=== PATIENT | male | born 1950 | race Caucasian/White ===

== ENCOUNTER 2024-07-12 17:48 | Inpatient (IN) | payer MEDICARE, BC ==
[~2024-07-12] VITALS: Ht 185.4 cm; Wt 186.0 kg
--- NOTE | 2024-07-12 18:17 | ED.PDOC ---
History of Present Illness HPI Comments 73 y/o M is BIBA for c/o shortness of breath and productive cough for 1x week, today. Patient endorses on unprovoked onset of symptoms that have been progressively worsening for the past week. He comments on difficulty breathing worsening with exertion. Per EMS report, patient was found on scene with a SpO2 of 88%RA and was given 1x Albuterol breathing Tx en route. At time of assessment, patient still remain with breathing Tx still being administered. Patient denies any chest pain, hemoptysis, fever, chills, or other associated symptoms or modifiers at this time. 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 Past Medical History PAST MEDICAL HISTORY: High Lipids, HTN Past Medical History (Other): morbid obesity Surgical History: Denies all surgeries Family History Family History: Unknown Social History Smoker: Non-Smoker Alcohol: Denies ETOH Use Drugs: Denies Drug Use Lives In: Home Respiratory: reports: cough, shortness of breath All Other Systems: Reviewed and Negative (negative unless otherwise stated above or in HPI) Physical Exam General Appearance: No Apparent Distress, Normal HEENT: Normal ENT Inspection, Pharynx Normal, TMs Normal Neck: Full Range of Motion, Non-Tender, Normal, Normal Inspection Respiratory: Chest Non-Tender, No Accessory Muscle Use, No Respiratory Distress, Wheezing (scattered wheezing to bilateral upper lobes ) Cardiovascular: No Edema, No JVD, No Murmur, No Gallop, Normal Peripheral Pulses, Regular Rate/Rhythm Breast Exam: Deferred Gastrointestinal: No Organomegaly, Non Tender, No Pulsatile Mass, Normal Bowel Sounds, Soft Genitalia: Deferred Pelvic: Deferred Rectal: Deferred Extremities: No calf tenderness, Normal capillary refill, Normal inspection, Normal range of motion, Non-tender, No pedal edema Musculoskeletal : Apperance: Normal Neurologic: Alert, 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 Was a procedure done?: No EKG EKG : Pulse Rate (adult): 90 [place]: Normal Cardiac Rhythm: NSR Block: None Hypertrophy: None ST: Normal Differential Dx Considerations may include: URI, viral syndrome, PE, PNA, pleural effusions, covid19, influenza X-Ray, Labs, Meds, VS Vital Signs Date Time Temp Pulse Resp B/P (MAP) Pulse Ox O2 Delivery O2 Flow Rate FiO2 07/12/24 20:00 87 07/12/24 19:30 97.4 92 15 122/71 (88) 94 97.4 07/12/24 19:29 20 94 Nasal Cannula* 4 36 07/12/24 19:26 91 Nasal Cannula* 6 44 07/12/24 18:54 97.9 87 13 100/48 (65) 78 97.9 07/12/24 18:54 87 13 78 Room Air* 0 21 07/12/24 18:17 90 07/12/24 17:55 97.9 89 18 122/65 (84) 94 07/12/24 17:53 90 Lab Test 07/12/24 20:14 07/12/24 20:09 07/12/24 19:34 07/12/24 18:40 Range/Units Influenza Type A Antigen Negative Negative Influenza Type B Antigen Negative Negative SARS-CoV-2 Antigen (Rapid) Positive *A NEGATIVE Urine Color Yellow Yellow Urine Clarity Clear Clear Urine pH 5.5 5.0-9.0 Urine Specific [place] 1.016 1.001-1.035 Urine Protein Negative Negative Urine Ketones Negative Negative Urine Blood Negative Negative /uL Urine Nitrite Negative Negative Urine Bilirubin Negative Negative Urine Urobilinogen Normal Negative mg/dL Urine Leukocyte Esterase Negative Negative /uL Urine RBC None seen 0 - 3 /hpf Urine WBC 1 0 - 3 /hpf Urine Squamous Epithelial Cells Few <5 /hpf Urine Bacteria None seen None Seen /hpf Urine Glucose Normal Normal mg/dL Troponin I High Sensitivity Pending 12 </=54 ng/L White Blood Count 5.6 4.4-10.8 10^3/uL Red Blood Count 5.41 4.5-5.90 10^6/uL Hemoglobin 17.6 H 13.5-17.5 g/dL Hematocrit 53.7 H 41.0-53.0 % Mean Corpuscular Volume 99.2 80.0-100.0 fL Mean Corpuscular Hemoglobin 32.5 H 28.0-32.0 pg Mean Corpuscular Hemoglobin Concent 32.8 32.0-36.0 g/dL Red Cell Distribution Width 15.9 H 11.8-14.3 % Platelet Count 193 140-450 10^3/uL Mean Platelet Volume 8.3 6.9-10.8 fL Neutrophils (%) (Auto) 83.2 H 37.0-80.0 % Lymphocytes (%) (Auto) 8.2 L 10.0-50.0 % Monocytes (%) (Auto) 8.0 0.0-12.0 % Eosinophils (%) (Auto) 0.3 0.0-7.0 % Basophils (%) (Auto) 0.3 0.0-2.0 % Neutrophils # (Auto) 4.7 1.6-8.6 10 ^3/uL Lymphocytes # (Auto) 0.5 0.4-5.4 10 ^3/uL Monocytes # (Auto) 0.5 0-1.3 10 ^3/uL Eosinophils # (Auto) 0 0-0.8 10 ^3/uL Basophils # (Auto) 0 0-0.2 10 ^3/uL Nucleated Red Blood Cells 0.5 % Sodium Level 135 L 136-145 mmol/L Potassium Level 4.9 3.5-5.1 mmol/L Chloride Level 99 98-107 mmol/L Carbon Dioxide Level 28 20-31 mmol/L Anion Gap 8 5-15 Blood Urea Nitrogen 23 9-23 mg/dL Creatinine 0.70 0.700-1.30 mg/dL Glomerular Filtration Rate Calc 99 >90 mL/min BUN/Creatinine Ratio 32.9 H 10.0-20.0 Serum Glucose 127 H 74-106 mg/dL Calcium Level 8.9 8.7-10.4 mg/dL Total Bilirubin 0.5 0.2-1.0 mg/dL Aspartate Amino Transferase (AST) 36 13-40 U/L Alanine Aminotransferase (ALT) 17 7-40 U/L Alkaline Phosphatase 69 46-116 U/L B-Type Natriuretic Peptide 59.33 0-100 pg/mL Total Protein 6.2 5.7-8.2 g/dL Albumin 3.7 3.2-4.8 g/dL Current Medications Medications (Trade) Dose Ordered Sig/Nikos Route Start Time Stop Time Status Last Admin Albuterol (Ventolin Medneb) 2.5 mg ONCE ONCE NEB 07/12/24 18:45 07/12/24 18:46 DC 07/12/24 19:25 Ipratropium [place] (Atrovent Medneb) 0.5 mg ONCE ONCE NEB 07/12/24 18:45 07/12/24 18:46 DC 07/12/24 19:25 Methylprednisolone Sodium Succinate (Solu Medrol) 125 mg ONCE ONCE IV 07/12/24 18:45 07/12/24 18:47 DC 07/12/24 20:11 X-Ray, Labs, Meds, VS Comment CT scan shows multifocal pneumonia Patient was positive COVID test Patient will be admitted for multifocal pneumonia Time of 1ST Reevaluation: 06:30 Reevaluation 1ST: Unchanged Patient Education/Counseling: Diagnosis, Treatment Family Education/Counseling: No Family Present Departure 1 Departure Time of Disposition: 20:22 Impression: Primary Impression: Pneumonia due to COVID-19 virus Disposition: ADMITTED INPATIENT Condition: Fair Critical Care Note Critical Care Time?: No Stability Stability form required: No Heart Score Heart Score: Heart Score Response (Comments) Value History Moderate Suspicious 1 EKG Normal 0 Age >65 2 Risk Factors >3 or Hx ASHD 2 Troponin N/A 0 Total 5 I personally scribed for KIN LUQUE ([email or web address]) on 07/12/24 at 18:17. Electronically submitted by Kuldip Tomas ([email or web address]). KIN LUQUE Jul 12, 2024 18:17
--- NOTE | 2024-07-12 18:22 | ECG ---
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
[2024-07-12] MEDS: IPRATROPIUM BROM 0.5 MG/2.5ML INH SOL NEB ONE ×2 (18:45→19:25)
[2024-07-12] MEDS: methylPREDNISolone SOD SUCC 125 MG/2 ML VL IM ONE (18:45)
[2024-07-12] MEDS: ALBUTEROL SULF 2.5 MG/0.5ML(0.5%) NEB SOLN NEB ONE ×2 (18:45→19:25)
[2024-07-12 18:54] VITALS: PULSE 87; RESP 13; O2SAT 78
[2024-07-12 18:54] LABS: Basophils # (auto) 0 10 ^3/uL (0-0.2); Basophils % (auto) 0.3 % (0.0-2.0); Eosinophils # (auto) 0 10 ^3/uL (0-0.8); Eosinophils % (auto) 0.3 % (0.0-7.0); Hematocrit 53.7 % (41.0-53.0); Hemoglobin 17.6 g/dL (13.5-17.5); Lymphocytes # (auto) 0.5 10 ^3/uL (0.4-5.4); Lymphocytes % (auto) 8.2 % (10.0-50.0); Mean Corpuscular Hemoglobin 32.5 pg (28.0-32.0); Mean Corpuscular Hgb Conc. 32.8 g/dL (32.0-36.0); Mean Corpuscular Volume 99.2 fL (80.0-100.0); Monocytes # (auto) 0.5 10 ^3/uL (0-1.3); Neutrophils # (auto) 4.7 10 ^3/uL (1.6-8.6); Neutrophils % (auto) 83.2 % (37.0-80.0); Nucleated Red Blood Cells % 0.5 %; Platelet Count (auto) 193 10^3/uL (140-450); Red Blood Cells 5.41 10^6/uL (4.5-5.90); Red Cell Distribution Width 15.9 % (11.8-14.3); White Blood Cell 5.6 10^3/uL (4.4-10.8)
--- NOTE | 2024-07-12 19:41 | DVH ---
Procedure: CT CHEST WITHOUT CONTRAST Study Date and Requested Time: 07/12/2024 07:01 PM History: sob Comparison: None Dose: CTDI: 31.36 mGy DLP: 1367.71 mGycm Technique: Multiplanar images obtained through the chest without contrast Findings: The thyroid gland is not definitely visualized. Borderline cardiomegaly. No evidence of aortic aneurysm. Mild dilatation of the pulmonary trunk up to 36 mm. Heavy atherosclerotic calcification of the coronary arteries. Mediastinal lymphadenopathy measuring up to 1.1 cm. Bilateral lower lobe ground-glass and solid consolidations with minimal involvement of the right uppe r lobe. No pneumothorax. Multiple cysts of varying sizes are noted throughout the bilateral lungs. Trace right-sided pleural e ffusion. Colonic diverticulosis without diverticulitis. Otherwise, partial view of the upper abdomen is otherw ise unremarkable. The soft tissues are unremarkable. No destructive osseous lesions are noted. Varicose veins are noted over the ventral upper chest subcutaneous fat. Impression: Multiple bilateral lung cysts of various sizes with bilateral lower lobe ground-glass and solid conso lidations and minimal involvement of the right upper lobe . Correlate for multifocal pneumonia. Give n cystic changes lymphoid interstitial pneumonia lymph and angio leiomyomatosis should be within the differential multiple etiologies not excluded. Recommend clinical correlation. Trace right-sided pleural effusion. Mediastinal lymphadenopathy which may be reactive or neoplastic. Dilatation of the pulmonary trunk up to 36 mm. Correlate for pulmonary arterial hypertension.
[2024-07-12 19:50] LABS: Alanine Aminotransferase 17 U/L (7-40); Albumin 3.7 g/dL (3.2-4.8); Alkaline Phosphatase 69 U/L (46-116); Anion Gap 8 (5-15); Aspartate Aminotransferase 36 U/L (13-40); BUN/Creatinine Ratio 32.9 (10.0-20.0); Bilirubin, Total 0.5 mg/dL (0.2-1.0); Blood Urea Nitrogen 23 mg/dL (9-23); Calcium 8.9 mg/dL (8.7-10.4); Carbon Dioxide 28 mmol/L (20-31); Chloride 99 mmol/L (98-107); Potassium 4.9 mmol/L (3.5-5.1); Total Protein 6.2 g/dL (5.7-8.2)
[2024-07-12 19:53] LABS: Glucose 127 mg/dL (74-106); Sodium 135 mmol/L (136-145)
[2024-07-12 20:09] LABS: Urine Bacteria None Seen /hpf (None Seen)
[2024-07-12] MEDS: methylPREDNISolone SOD SUCC 125 MG/2 ML VL IV ONE (20:11)
[2024-07-12 20:15] LABS: Rapid Influenza A Negative (Negative); Rapid Influenza B Negative (Negative)
[2024-07-12 20:16] LABS: COVID19 ANTIGEN SOFIA FIA POSITIVE (NEGATIVE)
[2024-07-12 20:20] LABS: Urine Blood Negative /uL (Negative); Urine Clarity Clear (Clear); Urine Color Yellow (Yellow); Urine Protein, UAD Negative (Negative); Urine Specific Gravity 1.016 (1.001-1.035); Urine Squamous Epithelial Cell FEW /hpf (<5); Urine Urobilinogen Normal (Negative); Urine WBC 1 /hpf (0 - 3); Urine pH 5.5 (5.0-9.0)
[2024-07-12] MEDS: PIPERACILLIN-TAZOB 3.375GM 100 ML IV ONE (21:35)
--- NOTE | 2024-07-12 22:03 | DVHHPRES ---
History of Present Illness Resident Creating Document: YANNI POLLOCK RESIDENT History of Present Illness This is a 73-year-old male with past medical history of hypertension, dyslipidemia, hypothyroidism, gout, skin cancer (unspecified), who presented to the ED due to acute shortness of breath associated with productive cough and sputum production. The patient states that he went to [place] on June 15 for evaluation until , on his way back home, he is starting to have worsening of shortness of breath associated with cough and whitish sputum production. The patient denied fever, chills, chest pain, palpitations or any other symptoms. Upon admission initial labs CBC, CMP was grossly unremarkable, troponins were negative and BNP was normal range. The patient tested positive for COVID-19 and negative for flu. The patient is currently on 5 L of oxygen through nasal cannula saturating 87%. CT scan of the chest showed bilateral lower lobe gr ound-glass opacities compatible with solid consolidations, multifocal pneumonia. There were also some lung cysts bilateral mediastinal lymph nodes be reactive or neoplastic. My examination, patient had bilateral expiratory wheezes and bilateral crackles on lung bases. One single dose of methylprednisolone 125 was given in the ED. the patient was started on IV Zosyn and azithromycin with respiratory therapy albuterol/ipratropium med nebs. Patient will be admitted for further assessment and management. Home medications: -Levothyroxine 100 mcg +125 mcg daily -simvastatin 20 mg daily -Azilsartan medixomil 40 mg daily -furosemide 40 mg b.i.d. -allopurinol 300 mg daily -aspirin 81 mg daily -isn't 80 mg daily, vitamin-C 100 mg daily Cardiovascular: HTN, hyperipidemia Rheumatologic: Gout Endocrine: Hypothyroidism Dermatology: Other (skin cancer unspecified.) Past Surgical History: None Family History: None Smoke: No ALCOHOL: none Drugs: None Lives: with Family Domestic Violence: Neg Review of Systems Constitutional: No: Fever, Chills, Sweats, Weakness, Malaise, Other Eyes: No: Pain, Vision change, Conjunctivae inflammation, Eyelid inflammation, Other, Redness ENT: No: Ear pain, Ear discharge, Nose pain, Nose discharge, Nose congestion, Mouth pain, Mouth swelling, Throat pain, Throat swelling, Other Respiratory: Cough, Shortness of breath, SOB with excertion, Wheezing, Sputum; No: Dry, Hemoptysis, Pleuritic Pain, Wheezing, Other Cardiovascular: No: Chest Pain, Palpitations, Orthopnea, Paroxysmal Noc. Dyspnea, Edema, Lt Headedness, Other Gastrointestinal: No: Nausea, Vomiting, Abdominal Pain, Diarrhea, Constipation, Melena, Hematochezia, Other Genitourinary: No Dysuria, No Frequency, No Incontinence, No Hematuria, No Retention, No Other Musculoskeletal: No: other, neck pain, shoulder pain, arm pain, back pain, hand pain, leg pain, foot pain Skin: No: Rash, Lesions, Jaundice, Bruising, Other Neurological: No: Weakness, Numbness, Incoordination, Change in speech, Confusion, Seizures, Other Allergies: Coded Allergies: NO KNOWN ALLERGIES (Unverified , 07/12/24) Medications Current Medications Medications Dose Ordered Sig/Nikos Route Start Time Stop Time Status Last Admin Dose Admin Azithromycin 250 ml @ 125 mls/hr DAILY IV 07/13/24 10:00 Piperacillin Sod/ Tazobactam Sod 100 ml @ 25 mls/hr Q8HR IV 07/13/24 06:00 Albuterol 2.5 mg Q6HP NEB 07/13/24 00:00 Ipratropium [place] 0.5 mg Q6HP NEB 07/13/24 00:00 Exam Vital Signs Vital Signs Date Time Temp Pulse Resp B/P (MAP) Pulse Ox O2 Delivery O2 Flow Rate FiO2 07/12/24 20:00 87 07/12/24 19:30 97.4 15 122/71 (88) 94 97.4 07/12/24 19:29 Nasal Cannula* 4 36 General Appearance: Alert, Oriented X3, Cooperative, mild distress HEENT: Atraumatic, PERRLA, EOMI, Mucous membr. moist/pink Respiratory: Clear to auscultation, Normal air movement Cardiovascular: Regular rate, Normal S1, Normal S2, No murmurs Abdominal: Normal bowel sounds, Soft, No tenderness, No hepatospenomegaly Extremities: No clubbing, No cyanosis, No edema, Normal pulses, No tenderness/swelling Skin: No rashes, No breakdown, No significant lesion Neuro: Normal gait, Normal speech, Strength at 5/5 X4 ext, Normal tone, Sensation intact, Cranial nerves 3-12 NL, Reflexes 2+ Psych/Mental Status: Mental status NL, Mood NL Labs/Xrays Labs Test 07/12/24 20:14 07/12/24 20:09 07/12/24 19:34 07/12/24 18:40 Range/Units Influenza Type A Antigen Negative Negative Influenza Type B Antigen Negative Negative SARS-CoV-2 Antigen (Rapid) Positive *A NEGATIVE Urine Color Yellow Yellow Urine Clarity Clear Clear Urine pH 5.5 5.0-9.0 Urine Specific [place] 1.016 1.001-1.035 Urine Protein Negative Negative Urine Ketones Negative Negative Urine Blood Negative Negative /uL Urine Nitrite Negative Negative Urine Bilirubin Negative Negative Urine Urobilinogen Normal Negative mg/dL Urine Leukocyte Esterase Negative Negative /uL Urine RBC None seen 0 - 3 /hpf Urine WBC 1 0 - 3 /hpf Urine Squamous Epithelial Cells Few <5 /hpf Urine Bacteria None seen None Seen /hpf Urine Glucose Normal Normal mg/dL Troponin I High Sensitivity 15 </=54 ng/L White Blood Count 5.6 4.4-10.8 10^3/uL Red Blood Count 5.41 4.5-5.90 10^6/uL Hemoglobin 17.6 H 13.5-17.5 g/dL Hematocrit 53.7 H 41.0-53.0 % Mean Corpuscular Volume 99.2 80.0-100.0 fL Mean Corpuscular Hemoglobin 32.5 H 28.0-32.0 pg Mean Corpuscular Hemoglobin Concent 32.8 32.0-36.0 g/dL Red Cell Distribution Width 15.9 H 11.8-14.3 % Platelet Count 193 140-450 10^3/uL Mean Platelet Volume 8.3 6.9-10.8 fL Neutrophils (%) (Auto) 83.2 H 37.0-80.0 % Lymphocytes (%) (Auto) 8.2 L 10.0-50.0 % Monocytes (%) (Auto) 8.0 0.0-12.0 % Eosinophils (%) (Auto) 0.3 0.0-7.0 % Basophils (%) (Auto) 0.3 0.0-2.0 % Neutrophils # (Auto) 4.7 1.6-8.6 10 ^3/uL Lymphocytes # (Auto) 0.5 0.4-5.4 10 ^3/uL Monocytes # (Auto) 0.5 0-1.3 10 ^3/uL Eosinophils # (Auto) 0 0-0.8 10 ^3/uL Basophils # (Auto) 0 0-0.2 10 ^3/uL Nucleated Red Blood Cells 0.5 % Sodium Level 135 L 136-145 mmol/L Potassium Level 4.9 3.5-5.1 mmol/L Chloride Level 99 98-107 mmol/L Carbon Dioxide Level 28 20-31 mmol/L Anion Gap 8 5-15 Blood Urea Nitrogen 23 9-23 mg/dL Creatinine 0.70 0.700-1.30 mg/dL Glomerular Filtration Rate Calc 99 >90 mL/min BUN/Creatinine Ratio 32.9 H 10.0-20.0 Serum Glucose 127 H 74-106 mg/dL Calcium Level 8.9 8.7-10.4 mg/dL Total Bilirubin 0.5 0.2-1.0 mg/dL Aspartate Amino Transferase (AST) 36 13-40 U/L Alanine Aminotransferase (ALT) 17 7-40 U/L Alkaline Phosphatase 69 46-116 U/L B-Type Natriuretic Peptide 59.33 0-100 pg/mL Total Protein 6.2 5.7-8.2 g/dL Albumin 3.7 3.2-4.8 g/dL Assessment/Plan Assessment/Plan Assessment/Plan Acute hypoxic respiratory failure likely due to multifocal pneumonia and COVID- 19 COVID-19 pneumonia R/O Gram-positive/negative bacterial pneumonia -currently on 5 L of oxygen through nasal cannula -CT of the chest showed bilateral lower lobe ground-glass opacities consistent with a solid consolidation and multifocal pneumonia. There was also mediastinal lymph nodes which could be reactive or neoplastic. There were bilateral lung cyst as well. -one dose of methylprednisolone 125 mg was given in the ED -start IV Zosyn and IV azithromycin -start respiratory therapy with albuterol and ipratropium med nebs -ordered sputum cultures -influenza test came back negative -monitor saturation closely Mediastinal lymph nodes and bilateral lung cysts -follow-up with pulmonology Primary hypertension -Resume home meds, Azilsartan 40mg daily -Monitor BP closely Dyslipidemia -Atorvastatin 40mg daily Hx of Gout -Continue Allopurinol 300mg daily Hypothyroidism -Order TSH and FT4 -Resume Home levothyroxine 100mcg +125mcg = 225mcg daily Goals of care discussed with the patient and at bedside for 25min, FULL CODE Plan discussed with Dr. Shah. Plan discussed with: Spouse My Orders Orders - YANNI POLLOCK Procedure Category Date Status Time Azithromycin 500mg/ PHA 07/13/24 In Process 250ml (Zithromax 50 10:00 Respiratory Culture SAIDA 07/12/24 Logged W/ Gs 20:46 Albuterol Medneb PHA 07/13/24 In Process (Ventolin Medneb) 00:00 Ipratropium Medneb PHA 07/13/24 In Process (Atrovent Medneb) 00:00 Piperacillin-Tazob PHA 07/13/24 In Process 3.375gm (Zosyn 3.375g 06:00 Piperacillin-Tazob PHA 07/12/24 In Process 3.375gm (Zosyn 3.375g 21:15 Admit ADMIT 07/12/24 Transmitted 21:27 Code Status CODE 07/12/24 Transmitted 21:27 Vital Signs MUSTAPHA 07/12/24 In Process 21:27 Review Orders With MUSTAPHA 07/12/24 In Process Adm. 21:27 Encourage Activity As MUSTAPHA 07/12/24 In Process Tolerate 21:27 Regular Diet DIET 07/13/24 Transmitted Breakfast Acetaminophen Tablet PHA 07/12/24 Logged (Tylenol Tablet) 21:30 Notify Md Of Changes MUSTAPHA 07/12/24 In Process From Base 21:27 Advance Directive MUSTAPHA 07/12/24 In Process 21:27 Echo 2d Mode Cardiac US 07/12/24 Logged DOP 21:27 Urinalysis LAB 07/12/24 Logged 21:27 Lipid Panel LAB 07/12/24 Logged 21:27 Patient Condition ORDERS 07/12/24 Transmitted 21:27 Allergies MUSTAPHA 07/12/24 In Process 21:27 Hemoglobin A1c LAB 07/12/24 Logged 21:27 Enoxaparin Sodium PHA 07/13/24 Logged (Lovenox) 10:00 Date of Service: Jul 12, 2024 Billing Provider: NICOLAS SHAH MD Common Visit Codes: 71631-HGWNKJA INP/OBS CARE (HIGH) Secondary Visit Codes: 50812-[id number] CARE PLAN 30 MINUTES YANNI POLLOCK RESIDENT Jul 12, 2024 22:03 NICOLAS SHAH MD Jul 13, 2024 18:45
[2024-07-12 23:14] VITALS: BP 100/51; PULSE 54; RESP 18; TEMP 98.4; O2SAT 90
[2024-07-12 23:16] LABS: Triglycerides 66 mg/dL (< 150)
[2024-07-12 23:17] LABS: LDL Cholesterol 65 mg/dL (< 100)
[2024-07-12 23:18] LABS: HDL Cholesterol 50 mg/dL (40-59)
[2024-07-12 23:26] VITALS: BP 100/51; PULSE 78; RESP 20; TEMP 98.4; O2SAT 90
[2024-07-13] VITALS (18 sets, daily range): BP systolic 97–124; BP diastolic 51–70; PULSE 68–99; RESP 17–22; TEMP 97.3–98.5; O2SAT 88–96
[2024-07-13] MEDS: IPRATROPIUM BROM 0.5 MG/2.5ML INH SOL NEB SCH (00:41)
[2024-07-13] MEDS: ALBUTEROL SULF 2.5 MG/0.5ML(0.5%) NEB SOLN NEB SCH (00:41)
[2024-07-13] MEDS ORDERED: LEVO100T3 PO (00:44)
[2024-07-13] MEDS ORDERED: FURO40TA4 PO (00:44)
[2024-07-13] MEDS ORDERED: ASPI1TAB20 PO (00:44)
[2024-07-13] MEDS ORDERED: AZIL40TA2 PO (00:44)
[2024-07-13] MEDS ORDERED: LEVO125T PO (00:44)
[2024-07-13] MEDS ORDERED: SIMV20TA20 PO (00:44)
[2024-07-13] MEDS ORDERED: ALLO300T2 PO (00:44)
[2024-07-13] MEDS: PIPERACILLIN-TAZOB 3.375GM 100 ML IV SCH ×2 (06:59→22:47)
[2024-07-13] MEDS: ATORVASTATIN 20 MG TAB PO SCH (09:21)
[2024-07-13] MEDS: ALLOPURINOL 100 MG TAB PO SCH (09:21)
[2024-07-13] MEDS: ENOXAPARIN SOD 40 MG/0.4 ML SYRINGE SC SCH ×2 (09:21→20:53)
[2024-07-13] MEDS: AZITHROMYCIN 500MG/ 250ML 250 ML IV SCH (09:50)
[2024-07-13] MEDS: AZILSARTAN 40 MG PO SCH (09:51)
[2024-07-13] MEDS ORDERED: ENOXAPARIN SOD 40 MG/0.4 ML SYRINGE SC SCH (10:00)
[2024-07-13] MEDS ORDERED: REMDESIVIR PER PHARMACY 0 ML IV SCH ×2 (10:00→11:15)
[2024-07-13] MEDS: LEVOTHYROXINE SODIUM 100 MCG TAB PO SCH (10:00)
[2024-07-13] MEDS: LEVOTHYROXINE SODIUM 50 MCG TAB PO ONE (12:37)
[2024-07-13] MEDS: REMDESIVIR 200mg in NS 210mL LOADING DOSE ADULT IV ONE (14:00)
[2024-07-13] MEDS ORDERED: VANCOMYCIN PER PHARMACY 0 MG IV SCH (14:30)
[2024-07-13 15:31] LABS: INR 1.02 (0.9-1.15); Partial Thromboplastin Time 32.9 SEC (24.5-34.5); Prothrombin Time 10.8 sec (9.3-11.8)
--- NOTE | 2024-07-13 16:44 | DVHSR ---
APPROVED REPORT EXAM: LIMITED Two-dimensional and M-mode echocardiogram with Doppler and color Doppler. Blood Pressure: 124/60 mmHg INDICATION r/o strucural abn RISK FACTORS Obesity: Height: 6'1, Weight: 390 DIMENSIONS LVDd4.6 (3.8-5.7cm)LA (2D) (1.9-4.0cm)Aortic Root4.0 (2.0-3.7cm) LVDs2.9 (2.5-4.0cm)LA (MM) (1.9-4.0cm)Aortic Cusp Exc1.5 (1.5-2.0cm) EF (%) 65.0 (55-70%)Rt. Atrium (1.9-4.0cm)Asc. Aorta cm IVSd1.1 (0.7-1.1cm)RV (D) (1.8-2.4cm) PWd1.0 (0.7-1.1cm) Mitral Valve MitralMitral Stenosis E/A ratio0.02D MVAcm2 Aortic Valve Aortic ValveAortic Stenosis LVOT Diameter2.4 (1.8-2.4cm)Doppler AVAcm2 Pulmonic Valve V20.97m/s Other Information Quality : LimitedRhythm : Technically limited study due to body habitus.patient position.pt sitting up Conclusion very limited study ith suboptimal image quality lvef 60% by visual estimate mild to moderate LVH valves not well assessed
--- NOTE | 2024-07-13 16:57 | DVH ---
Bilateral lower extremity venous duplex Clinical History: elevated ddimer Comparison: None Technique: Duplex Doppler evaluation of the deep venous systems of both lower extremities from the common femora l veins to the popliteal veins including color Doppler and spectral/pulsed waveform analysis was perf ormed. Findings: RIGHT SIDE: The common femoral vein demonstrates appropriate compressibility and waveform variability . There is compressibility/patency of the great saphenous vein at the proximal thigh . The femoral vein demonstrates appropriate compressibility and waveform variability . The deep femoral vein demonstrates appropriate compressibility and waveform variability . The popliteal vein demonstrates appropriate compressibility and waveform variability . There is normal compressibility at the tibioperoneal trunk. LEFT SIDE: The common femoral vein demonstrates appropriate compressibility and waveform variability . There is compressibility/patency of the great saphenous vein at the proximal thigh . The femoral vein demonstrates appropriate compressibility and waveform variability . The deep femoral vein demonstrates appropriate compressibility and waveform variability . The popliteal vein demonstrates appropriate compressibility and waveform variability . There is normal compressibility at the tibioperoneal trunk. Impression: 1. No right or left femoropopliteal venous thrombosis. HS:Y
--- NOTE | 2024-07-13 17:37 | DVHPN2 ---
Subjective Seen and examined at bedside. BP lower side. Patient is now requiring 9L oxymizer. Daughter and spouse at bedside. Monitor closely, will upgrade to ANGELICA if needed. Changes from previous H/P or p: No Changes Eyes: No Pain, No Vision change, No Conjunctivae inflammation, No Eyelid inflammation, No Other, No Redness ENT: No Ear pain, No Ear discharge, No Nose pain, No Nose discharge, No Nose congestion, No Mouth pain, No Mouth swelling, No Throat pain, No Throat swelling, No Other Cardiovascular: No Chest Pain, No Palpitations, No Orthopnea, No Paroxysmal Noc. Dyspnea, No Edema, No Lt Headedness, No Other Respiratory: Cough; No Dry; Shortness of breath, SOB with excertion, Wheezing; No Hemoptysis, No Pleuritic Pain; Sputum; No Other Gastrointestinal: No Nausea, No Vomiting, No Abdominal Pain, No Diarrhea, No Constipation, No Melena, No Hematochezia, No Other Genitourinary: No Dysuria, No Frequency, No Incontinence, No Hematuria, No Retention, No Other Musculoskeletal: No other, No neck pain, No shoulder pain, No arm pain, No back pain, No hand pain, No leg pain, No foot pain Skin: No Rash, No Lesions, No Jaundice, No Bruising, No Other Objective Vitals Vital Signs Date Time Temp Pulse Resp B/P (MAP) Pulse Ox O2 Delivery O2 Flow Rate FiO2 07/13/24 17:00 97.7 80 18 99/52 (68) 92 97.7 07/13/24 12:28 Nasal Cannula 6.0 07/13/24 12:28 44 Intake/Output Intake and Output 07/13/24 07:00 Intake Total 50 ml Balance 50 ml Intake Oral 50 ml # Voids 3 Medications Current Medications Medications Dose Ordered Sig/Nikos Route Start Time Stop Time Status Last Admin Dose Admin Azithromycin 250 ml @ 125 mls/hr DAILY IV 07/13/24 10:00 07/13/24 09:50 125 MLS/HR Piperacillin Sod/ Tazobactam Sod 100 ml @ 25 mls/hr Q8HR IV 07/13/24 06:00 07/13/24 15:02 25 MLS/HR Albuterol 2.5 mg Q6HP NEB 07/13/24 00:00 07/13/24 12:27 2.5 MG Ipratropium [place] 0.5 mg Q6HP NEB 07/13/24 00:00 07/13/24 12:28 0.5 MG Acetaminophen 650 mg Q6HP PRN PO 07/12/24 21:30 Patient Own Medication 1 DAILY PO 07/13/24 10:00 Allopurinol 300 mg DAILY PO 07/13/24 10:00 07/13/24 09:21 300 MG Atorvastatin Calcium 40 mg DAILY PO 07/13/24 10:00 07/13/24 09:21 40 MG Levothyroxine Sodium 100 mcg DAILY PO 07/13/24 06:00 07/13/24 12:36 100 MCG Remdesivir 0 ml @ 0 mls/hr PER PHARMACY IV 07/13/24 10:00 07/17/24 10:01 UNV Enoxaparin Sodium 40 mg BID SC 07/13/24 10:00 UNV Remdesivir 0 ml @ 0 mls/hr PER PHARMACY IV 07/13/24 11:15 07/17/24 11:16 Enoxaparin Sodium 40 mg BID SC 07/13/24 22:00 Remdesivir 100 mg/ Sodium Chloride 250 ml @ 250 mls/hr DAILY@1500 IV 07/14/24 15:00 07/17/24 15:59 Vancomycin HCl 0 ml @ 0 mls/hr UD IV 07/13/24 14:30 Guaifenesin/ Dextromethorphan 10 ml Q4HP PRN PO 07/13/24 16:15 Laboratory Results Laboratory Tests 07/12/24 18:40 Chemistry Test 07/12/24 18:40 Albumin 3.7 g/dL (3.2-4.8) Calcium Level 8.9 mg/dL (8.7-10.4) Total Protein 6.2 g/dL (5.7-8.2) Coagulation Test 07/13/24 14:50 Prothrombin Time 10.8 sec (9.3-11.8) Prothrombin Time INR 1.02 (0.9-1.15) Activated Partial Thromboplast Time 32.9 SEC (24.5-34.5) D-Dimer, Quantitative 1.47 mg/L FEU (0.0-0.49) H Lipid panel Test 07/12/24 19:34 Cholesterol Level mg/dL (< 200) HDL Cholesterol 50 mg/dL (40-59) Triglycerides Level 66 mg/dL (< 150) Cardiac Markers Test 07/12/24 18:40 B-Type Natriuretic Peptide 59.33 pg/mL (0-100) LFT Test 07/12/24 18:40 Alanine Aminotransferase (ALT) 17 U/L (7-40) Alkaline Phosphatase 69 U/L (46-116) Aspartate Amino Transferase (AST) 36 U/L (13-40) Total Bilirubin 0.5 mg/dL (0.2-1.0) HgA1c, TSH Test 07/12/24 18:40 Hemoglobin A1c 6.1 % A1C (<5.7) H Urinalysis Test 07/12/24 20:09 Urine Color Yellow (Yellow) Urine Clarity Clear (Clear) Urine pH 5.5 (5.0-9.0) Urine Specific [place] 1.016 (1.001-1.035) Urine Protein Negative (Negative) Urine Ketones Negative (Negative) Urine Blood Negative /uL (Negative) Urine Nitrite Negative (Negative) Urine Bilirubin Negative (Negative) Urine Urobilinogen Normal mg/dL (Negative) Urine Leukocyte Esterase Negative /uL (Negative) Urine RBC None seen /hpf (0 - 3) Urine WBC 1 /hpf (0 - 3) Urine Squamous Epithelial Cells Few /hpf (<5) Urine Bacteria None seen /hpf (None Seen) Urine Glucose Normal mg/dL (Normal) Assessment/Plan Assessment/Plan Acute hypoxic respiratory failure likely due to multifocal pneumonia and COVID- 19 COVID-19 pneumonia R/O Gram-positive/negative bacterial pneumonia -currently on 9 L of oxygen through nasal cannula -CT of the chest showed bilateral lower lobe ground-glass opacities consistent with a solid consolidation and multifocal pneumonia. There was also mediastinal lymph nodes which could be reactive or neoplastic. There were bilateral lung cyst as well. -start IV Zosyn, Vanco, and Azithromycin -start respiratory therapy with albuterol and ipratropium med nebs -ordered sputum cultures -influenza test came back negative -monitor saturation closely Mediastinal lymph nodes and bilateral lung cysts -follow-up with pulmonology as outpatient Primary hypertension -Monitor BP closely Dyslipidemia -Atorvastatin 40mg daily Hx of Gout -Continue Allopurinol 300mg daily Hypothyroidism -Order TSH and FT4 -Resume Home levothyroxine 100mcg +125mcg = 225mcg daily Goals of care discussed with the patient and at bedside for 25min, FULL CODE critical care time 45 mins Plan discussed with: Patient, Spouse, Daughter My Orders Orders - NICOLAS JOSÉ MD Procedure Category Date Status Time Sputum Induction RT 07/13/24 Logged 09:46 Respiratory Culture SAIDA 07/13/24 In Process W/ Gs 09:46 Mrsa Screen SAIDA 07/13/24 Logged 12:53 Remdesivir Per PHA 07/13/24 In Process Pharmacy 11:15 Enoxaparin Sodium PHA 07/13/24 In Process (Lovenox) 22:00 Remdesivir 100mg PHA 07/14/24 In Process (Veklury) 15:00 Mrsa Screen SAIDA 07/13/24 In Process 12:33 Vancomycin Per PHA 07/13/24 In Process Pharmacy 14:30 Complete Blood Count LAB 07/14/24 Verified 04:00 Creatinine LAB 07/14/24 Verified 04:00 Vancomycin,Random LAB 07/14/24 Verified 04:00 Guaifenesin-Dextromet PHA 07/13/24 In Process Liquid (Robitussin 16:15 Bilat Lower Dvt US 07/13/24 Resulted 16:05 Complete Blood Count LAB 07/13/24 Logged 17:29 Comprehensive LAB 07/13/24 Logged Metabolic Panel 17:29 Magnesium LAB 07/13/24 Logged 17:29 Lactic Acid W/ Reflex LAB 07/13/24 Logged Order 17:29 Chest Portable XY 07/13/24 Logged 17:29 Dexamethasone PHA 07/13/24 Transmitted Injection (Decadron 22:00 Famotidine Tablet PHA 07/14/24 Transmitted (Pepcid Tablet) 10:00 Azithromycin Tablet PHA 07/14/24 Transmitted (Zithromax Tablet) 10:00 Date of Service: Jul 13, 2024 Billing Provider: NICOLAS JOSÉ MD Common Visit Codes: [id number] CARE 30-74 MIN NICOLAS JOSÉ MD Jul 13, 2024 17:37
--- NOTE | 2024-07-13 18:06 | DVH ---
CHEST RADIOGRAPH Indication: SOB Technique: Single frontal view of the chest was obtained Comparison: None Findings/ IMPRESSION: Low lung volumes with bronchovascular crowding. Bilateral mid to lower lung zone hazy opacification c oncerning for small pleural effusions with developing airspace disease not excluded. No pneumothorax.
[2024-07-13 18:33] LABS: Base Excess 4.3 mmol/L (-2.0-3.0)
[2024-07-13 19:41] LABS: Basophils # (auto) 0 10 ^3/uL (0-0.2); Eosinophils # (auto) 0 10 ^3/uL (0-0.8); Hematocrit 52.4 % (41.0-53.0); Hemoglobin 16.9 g/dL (13.5-17.5); Lymphocytes # (auto) 0.2 10 ^3/uL (0.4-5.4); Lymphocytes % (auto) 3.8 % (10.0-50.0); Mean Corpuscular Hgb Conc. 32.1 g/dL (32.0-36.0); Mean Corpuscular Volume 99.4 fL (80.0-100.0); Monocytes # (auto) 0.5 10 ^3/uL (0-1.3); Monocytes % (auto) 7.2 % (0.0-12.0); Neutrophils # (auto) 5.7 10 ^3/uL (1.6-8.6); Nucleated Red Blood Cells % 0.9 %; Platelet Count (auto) 212 10^3/uL (140-450); Red Blood Cells 5.27 10^6/uL (4.5-5.90); Red Cell Distribution Width 15.4 % (11.8-14.3); White Blood Cell 6.4 10^3/uL (4.4-10.8)
[2024-07-13 19:59] LABS: Alanine Aminotransferase 20 U/L (7-40); Albumin 3.6 g/dL (3.2-4.8); Alkaline Phosphatase 63 U/L (46-116); Anion Gap 5 (5-15); Aspartate Aminotransferase 39 U/L (13-40); BUN/Creatinine Ratio 25.8 (10.0-20.0); Calcium 8.8 mg/dL (8.7-10.4); Carbon Dioxide 30 mmol/L (20-31); Chloride 99 mmol/L (98-107); Magnesium 2.5 mg/dL (1.6-2.6)
[2024-07-13 20:00] LABS: Bilirubin, Total 0.5 mg/dL (0.2-1.0); Total Protein 5.8 g/dL (5.7-8.2)
[2024-07-13 20:08] LABS: Blood Urea Nitrogen 25 mg/dL (9-23); Glucose 145 mg/dL (74-106); Sodium 134 mmol/L (136-145)
[2024-07-13 20:12] LABS: Potassium 5.7 mmol/L (3.5-5.1)
[2024-07-13] MEDS: SODIUM ZIRCONIUM CYCL 10 GM PAK ONE (20:20)
[2024-07-13] MEDS: VANCOMYCIN 1GM/250ML KIT 500 ML IV ONE (20:21)
[2024-07-13] MEDS: ACETYLCYSTEINE 20%(200MG/ML) SOL 4ML NEB SCH (20:44)
[2024-07-13] MEDS: VANCOMYCIN 1GM/250ML KIT 250 ML IV SCH (20:52)
[2024-07-13] MEDS: FUROSEMIDE 20 MG/2 ML VIAL IV ONE ×2 (20:53→20:54)
[2024-07-13] MEDS: DexAMETHasone SOD PHOS 10MG/1ML VIAL INJ IV SCH (20:53)
[2024-07-13] MEDS: ALBUTEROL SULF 2.5 MG/0.5ML(0.5%) NEB SOLN NEB ONE (20:56)
[2024-07-13] MEDS: DEXTROSE (50%) 50ML SYRG IV ONE (21:23)
[2024-07-13] MEDS: SODIUM ZIRCONIUM CYCL 10 GM PAK PO ONE (21:23)
[2024-07-13] MEDS: InsuLIN REG 1unit/0.01ml Soln (100units/ml) IV ONE (21:24)
[2024-07-13] MEDS: ALBUMIN 25% 50 ML IV ONE (23:00)
[2024-07-14] VITALS (16 sets, daily range): BP systolic 101–122; BP diastolic 46–61; PULSE 73–99; RESP 16–22; TEMP 97.7–98.7; O2SAT 86–94
[2024-07-14 00:43] LABS: Chloride 100 mmol/L (98-107); Potassium 4.4 mmol/L (3.5-5.1)
[2024-07-14 00:49] LABS: Blood Urea Nitrogen 22 mg/dL (9-23)
[2024-07-14 00:57] LABS: Carbon Dioxide 31 mmol/L (20-31); Glucose 178 mg/dL (74-106)
[2024-07-14 00:58] LABS: Anion Gap 5 (5-15); Sodium 136 mmol/L (136-145)
[2024-07-14 06:13] LABS: Basophils # (auto) 0 10 ^3/uL (0-0.2); Basophils % (auto) 0.5 % (0.0-2.0); Eosinophils # (auto) 0 10 ^3/uL (0-0.8); Hematocrit 50.1 % (41.0-53.0); Lymphocytes # (auto) 0.3 10 ^3/uL (0.4-5.4); Lymphocytes % (auto) 4.1 % (10.0-50.0); Mean Corpuscular Hemoglobin 31.4 pg (28.0-32.0); Mean Corpuscular Hgb Conc. 31.9 g/dL (32.0-36.0); Mean Corpuscular Volume 98.6 fL (80.0-100.0); Monocytes # (auto) 0.5 10 ^3/uL (0-1.3); Monocytes % (auto) 6.2 % (0.0-12.0); Neutrophils # (auto) 6.7 10 ^3/uL (1.6-8.6); Neutrophils % (auto) 89.2 % (37.0-80.0); Nucleated Red Blood Cells % 0.4 %; Platelet Count (auto) 234 10^3/uL (140-450); Red Blood Cells 5.08 10^6/uL (4.5-5.90); Red Cell Distribution Width 15.7 % (11.8-14.3); White Blood Cell 7.5 10^3/uL (4.4-10.8)
[2024-07-14] MEDS: guaiFENesin-DM 100/10mg/5ml SYR PO PRN (09:26)
[2024-07-14] MEDS: AZITHROMYCIN 250 MG TAB PO SCH (09:27)
[2024-07-14] MEDS: FAMOTIDINE 20 MG TAB PO SCH (09:51)
--- NOTE | 2024-07-14 16:29 | DVHPN2 ---
Subjective Seen and examined at bedside. Remains on 9L Oxymizer. Pulm Cx by Dr. Warner. Family at bedside. Changes from previous H/P or p: No Changes Eyes: No Pain, No Vision change, No Conjunctivae inflammation, No Eyelid inflammation, No Other, No Redness ENT: No Ear pain, No Ear discharge, No Nose pain, No Nose discharge, No Nose congestion, No Mouth pain, No Mouth swelling, No Throat pain, No Throat swelling, No Other Cardiovascular: No Chest Pain, No Palpitations, No Orthopnea, No Paroxysmal Noc. Dyspnea, No Edema, No Lt Headedness, No Other Respiratory: Cough; No Dry; Shortness of breath, SOB with excertion, Wheezing; No Hemoptysis, No Pleuritic Pain; Sputum; No Other Gastrointestinal: No Nausea, No Vomiting, No Abdominal Pain, No Diarrhea, No Constipation, No Melena, No Hematochezia, No Other Genitourinary: No Dysuria, No Frequency, No Incontinence, No Hematuria, No Retention, No Other Musculoskeletal: No other, No neck pain, No shoulder pain, No arm pain, No back pain, No hand pain, No leg pain, No foot pain Skin: No Rash, No Lesions, No Jaundice, No Bruising, No Other Objective Vitals Vital Signs Date Time Temp Pulse Resp B/P (MAP) Pulse Ox O2 Delivery O2 Flow Rate FiO2 07/14/24 13:08 91 18 92 07/14/24 13:00 97.7 109/54 (72) 97.7 07/14/24 13:00 Oxymizer 8.0 07/14/24 13:00 N/A Intake/Output Intake and Output 07/14/24 07:00 Intake Total 2475 ml Balance 2475 ml Intake Oral 1425 ml IV Total 1050 ml # Voids 1 # Bowel Movements 1 Exam Gen: in bed, mild distress Cvs: N S1/S2, RRR Resp: Diminished b/l Abd: Morbidly Obese Diagram Clerk: AAO x 4 Ext: Mild edema with redness Medications Current Medications Medications Dose Ordered Sig/Nikos Route Start Time Stop Time Status Last Admin Dose Admin Albuterol 2.5 mg Q6HP NEB 07/13/24 00:00 07/14/24 12:59 2.5 MG Ipratropium [place] 0.5 mg Q6HP NEB 07/13/24 00:00 07/14/24 12:59 0.5 MG Acetaminophen 650 mg Q6HP PRN PO 07/12/24 21:30 Patient Own Medication 1 DAILY PO 07/13/24 10:00 Allopurinol 300 mg DAILY PO 07/13/24 10:00 07/14/24 09:27 300 MG Atorvastatin Calcium 40 mg DAILY PO 07/13/24 10:00 07/14/24 09:26 40 MG Levothyroxine Sodium 100 mcg DAILY PO 07/13/24 06:00 07/14/24 09:27 100 MCG Remdesivir 0 ml @ 0 mls/hr PER PHARMACY IV 07/13/24 10:00 07/17/24 10:01 UNV Enoxaparin Sodium 40 mg BID SC 07/13/24 10:00 UNV Remdesivir 0 ml @ 0 mls/hr PER PHARMACY IV 07/13/24 11:15 07/17/24 11:16 Enoxaparin Sodium 40 mg BID SC 07/13/24 22:00 07/14/24 10:04 40 MG Remdesivir 100 mg/ Sodium Chloride 250 ml @ 250 mls/hr DAILY@1500 IV 07/14/24 15:00 07/17/24 15:59 Vancomycin HCl 0 ml @ 0 mls/hr UD IV 07/13/24 14:30 Guaifenesin/ Dextromethorphan 10 ml Q4HP PRN PO 07/13/24 16:15 07/14/24 09:26 10 ML Dexamethasone Sodium Phosphate 10 mg Q12HR IV 07/13/24 22:00 07/14/24 09:26 10 MG Famotidine 40 mg DAILY PO 07/14/24 10:00 Azithromycin 500 mg DAILY PO 07/14/24 10:00 07/18/24 09:59 07/14/24 09:27 500 MG Piperacillin Sod/ Tazobactam Sod 100 ml @ 25 mls/hr Q6H IV 07/13/24 21:00 07/14/24 09:26 25 MLS/HR Acetylcysteine 200 mg Q8HR NEB 07/13/24 22:00 07/14/24 13:00 200 MG Furosemide 20 mg BIDD IV 07/14/24 18:00 Laboratory Results Laboratory Tests 07/14/24 00:00 07/14/24 04:59 Chemistry Test 07/13/24 19:03 07/14/24 00:00 Albumin 3.6 g/dL (3.2-4.8) Calcium Level 8.8 mg/dL (8.7-10.4) 9.0 mg/dL (8.7-10.4) Magnesium Level 2.5 mg/dL (1.6-2.6) Total Protein 5.8 g/dL (5.7-8.2) LFT Test 07/13/24 19:03 Alanine Aminotransferase (ALT) 20 U/L (7-40) Alkaline Phosphatase 63 U/L (46-116) Aspartate Amino Transferase (AST) 39 U/L (13-40) Total Bilirubin 0.5 mg/dL (0.2-1.0) Urinalysis Test 07/12/24 20:09 Urine Color Yellow (Yellow) Urine Clarity Clear (Clear) Urine pH 5.5 (5.0-9.0) Urine Specific [place] 1.016 (1.001-1.035) Urine Protein Negative (Negative) Urine Ketones Negative (Negative) Urine Blood Negative /uL (Negative) Urine Nitrite Negative (Negative) Urine Bilirubin Negative (Negative) Urine Urobilinogen Normal mg/dL (Negative) Urine Leukocyte Esterase Negative /uL (Negative) Urine RBC None seen /hpf (0 - 3) Urine WBC 1 /hpf (0 - 3) Urine Squamous Epithelial Cells Few /hpf (<5) Urine Bacteria None seen /hpf (None Seen) Urine Glucose Normal mg/dL (Normal) Blood Gas Results Test 07/13/24 18:25 Arterial Blood pH 7.373 (7.350-7.450) FiO2 % 67.0 Microbiology Microbiology Date/Time Source Procedure Growth Status 07/13/24 14:34 Sputum Gram Stain - Final Resulted 07/13/24 14:34 Sputum Respiratory Culture - Preliminary Resulted 07/13/24 12:33 Nose MRSA Screen - Final Complete Assessment/Plan Assessment/Plan Acute hypoxic respiratory failure likely due to multifocal pneumonia and COVID- 19 COVID-19 pneumonia R/O Gram-positive/negative bacterial pneumonia -currently on 9 L of oxygen through nasal cannula -CT of the chest showed bilateral lower lobe ground-glass opacities consistent with a solid consolidation and multifocal pneumonia. There was also mediastinal lymph nodes which could be reactive or neoplastic. There were bilateral lung cyst as well. -start IV Zosyn, Vanco, and Azithromycin -start respiratory therapy with albuterol and ipratropium med nebs -ordered sputum cultures -influenza test came back negative -monitor saturation closely Mediastinal lymph nodes and bilateral lung cysts -follow-up with pulmonology as outpatient Primary hypertension -Monitor BP closely Dyslipidemia -Atorvastatin 40mg daily Hx of Gout -Continue Allopurinol 300mg daily Hypothyroidism -Order TSH and FT4 -Resume Home levothyroxine 100mcg +125mcg = 225mcg daily Goals of care discussed with the patient and at bedside for 25min, FULL CODE critical care time 41 mins Plan discussed with: Patient My Orders Orders - NICOLAS JOSÉ MD Procedure Category Date Status Time Chest Portable XY 07/13/24 Resulted 17:29 Dexamethasone PHA 07/13/24 In Process Injection (Decadron 22:00 Famotidine Tablet PHA 07/14/24 In Process (Pepcid Tablet) 10:00 Azithromycin Tablet PHA 07/14/24 In Process (Zithromax Tablet) 10:00 Incentive Spirometry ORDERS 07/13/24 Transmitted Q 1hr 17:34 Abg W/ Co-Ox RT 07/13/24 Logged 18:18 Acetylcysteine PHA 07/13/24 In Process Inhalation 20% 22:00 Transfer Orders XFER 07/13/24 Transmitted 19:34 Furosemide Injection PHA 07/14/24 In Process (Lasix Injection) 18:00 Basic Metabolic Panel LAB 07/15/24 Verified 04:00 Magnesium LAB 07/15/24 Verified 04:00 Vancomycin,Random LAB 07/15/24 Verified 04:00 B-Type Natriuretic LAB 07/15/24 Verified Peptide 04:00 Date of Service: Jul 14, 2024 Billing Provider: NICOLAS JOSÉ MD Common Visit Codes: [id number] CARE 30-74 MIN NICOLAS JOSÉ MD Jul 14, 2024 16:29
[2024-07-14] MEDS: VANCOMYCIN 750MG VIAL 750 MG in D5W 5% 100 ML IV ONE (17:00)
[2024-07-14] MEDS: REMDESIVIR 100mg in NS 230mL (5 DAY REGIMEN) IV SCH (18:19)
[2024-07-14] MEDS: FUROSEMIDE 20 MG/2 ML VIAL IV SCH (18:20)
[2024-07-15] VITALS (14 sets, daily range): BP systolic 98–124; BP diastolic 58–70; PULSE 71–98; RESP 16–20; TEMP 97.7–98.1; O2SAT 90–96
--- NOTE | 2024-07-15 00:14 | DVHINCON2 ---
DATE OF CONSULTATION: 07/14/2024 PULMONARY CONSULT PRIMARY PHYSICIAN: Nicolas Shah M.D. HISTORY OF PRESENT ILLNESS: This is a pulmonary consult. The patient was seen in the afternoon. The patient was admitted with shortness of breath. The patient states that he is short of breath slowly for a few months, but now more so for the last 1 week. He does complain of cough with mucoid expectoration. He denies any PND but does complain of mild orthopnea. He denies any recent change in his weight, but does complain of pedal edema. He denies any wheezing. He denies any hemoptysis. PAST MEDICAL HISTORY: Includes history of hip surgery, history of hypertension. Denies being a diabetic. Denies any coronary artery disease, but has been diagnosed with congestive heart failure in the past. Denies any strokes. Denies any cancers except for some skin cancer. Denies any previously known COPD, asthma or emphysema. Denies any liver or kidney problem. PAST SURGICAL HISTORY: Surgery on the skin for skin cancer in the left leg. REVIEW OF SYSTEMS: Unrevealing except as noted above. Baseline status is poor. He uses a walker. He has recently had a trip to [place] where he drove around numerous places. His son-in-law was also having some similar symptoms. Medications were reviewed. FAMILY HISTORY: Noncontributory. SOCIAL HISTORY: He says he smoked only for 10 years and quit 20 years ago. Denies any alcohol or drug use. PHYSICAL EXAMINATION: VITAL SIGNS: Stable, afebrile, respiratory rate 16, saturations were 92% on 8 liters oxymizer. HEENT: Moderate oropharyngeal crowding. Tongue is moist. NECK: Supple, no lymphadenopathy. CHEST: Bilateral rales, right much more than the left. Diminished air entry at both bases. No wheezing. COR: S1, S2. No murmurs, no gallops. ABDOMEN: Soft, obese, nontender. No guarding, rigidity, rebound. No organomegaly noted. EXTREMITIES: 1+ pedal edema. No clubbing or cyanosis. NEUROLOGIC: Awake, moving all extremities. Lab work was reviewed. A CT of the chest was reviewed that did have multiple cystic lesions, especially on the right side. There is a right lower lobe infiltrate. The patient also is COVID antigen positive. The patient had an echocardiogram, the results of which were reviewed. Ejection fraction is normal. No tricuspid regurgitation was noted and therefore no assessment can be made on the pulmonary artery pressure. IMPRESSION: Right lower lobe pneumonia. Underlying COVID-19. History of hypertension, morbid obesity, may have underlying sleep apnea. Pulmonary cyst possibility of lymphangioleiomyomatosis. Although patient is a male and is more likely in females possibility of previous pneumatoceles were also discussed. Atypical infections like PCP can also give cystic lesions like the same. In addition, there is a risk of aspiration. Since this is predominantly right lower lobe infiltrate, I will recommend checking a swallowing evaluation, aspiration precautions. We will check a sputum for PCP. Continue current medications and nebulizers. Titrate oxygen, keep saturations greater than 90%. Incentive spirometry. The patient's cystic lesions and possibility of sleep apnea can be followed up later as an outpatient. Thank you for asking me to see this patient. Juan Carlos Warner MD /MARIAH TID: [id number] RECEIPT: [id number] cc: NICOLAS SHAH M.D.
[2024-07-15 07:39] LABS: Chloride 101 mmol/L (98-107); Sodium 137 mmol/L (136-145)
[2024-07-15 07:40] LABS: Anion Gap 8 (5-15); Calcium 9.3 mg/dL (8.7-10.4); Carbon Dioxide 28 mmol/L (20-31)
[2024-07-15 07:45] LABS: BUN/Creatinine Ratio 26.1 (10.0-20.0)
[2024-07-15 07:47] LABS: Blood Urea Nitrogen 29 mg/dL (9-23); Glucose 166 mg/dL (74-106); Magnesium 2.7 mg/dL (1.6-2.6)
[2024-07-15] MEDS: VANCOMYCIN 1.25GM/250ML 250 ML IV SCH (10:40)
--- NOTE | 2024-07-15 16:01 | DVHPN2 ---
Subjective Seen and examined at bedside. Remains on 9L Oxymizer. Pulm Cx by Dr. Warner noted. Changes from previous H/P or p: No Changes Eyes: No Pain, No Vision change, No Conjunctivae inflammation, No Eyelid inflammation, No Other, No Redness ENT: No Ear pain, No Ear discharge, No Nose pain, No Nose discharge, No Nose congestion, No Mouth pain, No Mouth swelling, No Throat pain, No Throat swelling, No Other Cardiovascular: No Chest Pain, No Palpitations, No Orthopnea, No Paroxysmal Noc. Dyspnea, No Edema, No Lt Headedness, No Other Respiratory: No Cough, No Dry; Shortness of breath; No SOB with excertion, No Wheezing, No Hemoptysis, No Pleuritic Pain, No Sputum, No Other Gastrointestinal: No Nausea, No Vomiting, No Abdominal Pain, No Diarrhea, No Constipation, No Melena, No Hematochezia, No Other Genitourinary: No Dysuria, No Frequency, No Incontinence, No Hematuria, No Retention, No Other Musculoskeletal: No other, No neck pain, No shoulder pain, No arm pain, No back pain, No hand pain, No leg pain, No foot pain Skin: No Rash, No Lesions, No Jaundice, No Bruising, No Other Objective Vitals Vital Signs Date Time Temp Pulse Resp B/P (MAP) Pulse Ox O2 Delivery O2 Flow Rate FiO2 07/15/24 14:47 98 18 93 07/15/24 14:37 Oxymizer 8 N/A 07/15/24 13:29 98.1 113/67 (82) 98.1 Intake/Output Intake and Output 07/15/24 07:00 Intake Total 650 ml Balance 650 ml Intake Oral 550 ml IV Total 100 ml # Voids 6 # Bowel Movements 3 Exam Gen: in bed, NAD Cvs: N S1/S2, RRR Resp: Diminished b/l Abd: Morbidly Obese [place] Grinder Operator: AAO x 4 Ext: Mild edema with redness Medications Current Medications Medications Dose Ordered Sig/Nikos Route Start Time Stop Time Status Last Admin Dose Admin Albuterol 2.5 mg Q6HP NEB 07/13/24 00:00 07/15/24 14:37 2.5 MG Ipratropium [place] 0.5 mg Q6HP NEB 07/13/24 00:00 07/15/24 14:37 0.5 MG Acetaminophen 650 mg Q6HP PRN PO 07/12/24 21:30 Patient Own Medication 1 DAILY PO 07/13/24 10:00 Allopurinol 300 mg DAILY PO 07/13/24 10:00 07/15/24 10:05 300 MG Atorvastatin Calcium 40 mg DAILY PO 07/13/24 10:00 07/15/24 10:05 40 MG Levothyroxine Sodium 100 mcg DAILY PO 07/13/24 06:00 07/15/24 10:05 100 MCG Remdesivir 0 ml @ 0 mls/hr PER PHARMACY IV 07/13/24 10:00 07/17/24 10:01 UNV Enoxaparin Sodium 40 mg BID SC 07/13/24 10:00 UNV Remdesivir 0 ml @ 0 mls/hr PER PHARMACY IV 07/13/24 11:15 07/17/24 11:16 Enoxaparin Sodium 40 mg BID SC 07/13/24 22:00 07/15/24 10:06 40 MG Remdesivir 100 mg/ Sodium Chloride 250 ml @ 250 mls/hr DAILY@1500 IV 07/14/24 15:00 07/17/24 15:59 07/15/24 14:50 250 MLS/HR Vancomycin HCl 0 ml @ 0 mls/hr UD IV 07/13/24 14:30 Guaifenesin/ Dextromethorphan 10 ml Q4HP PRN PO 07/13/24 16:15 07/14/24 09:26 10 ML Dexamethasone Sodium Phosphate 10 mg Q12HR IV 07/13/24 22:00 07/15/24 10:05 10 MG Famotidine 40 mg DAILY PO 07/14/24 10:00 07/15/24 10:05 40 MG Azithromycin 500 mg DAILY PO 07/14/24 10:00 07/18/24 09:59 07/15/24 10:05 500 MG Piperacillin Sod/ Tazobactam Sod 100 ml @ 25 mls/hr Q6H IV 07/13/24 21:00 07/15/24 14:44 25 MLS/HR Acetylcysteine 200 mg Q8HR NEB 07/13/24 22:00 07/15/24 14:36 200 MG Furosemide 20 mg BIDD IV 07/14/24 18:00 07/15/24 06:24 20 MG Vancomycin HCl 250 ml @ 200 mls/hr Q12H IV 07/15/24 10:00 07/15/24 10:40 200 MLS/HR Laboratory Results Laboratory Tests 07/14/24 04:59 07/15/24 06:57 Chemistry Test 07/15/24 06:57 Calcium Level 9.3 mg/dL (8.7-10.4) Magnesium Level 2.7 mg/dL (1.6-2.6) H Cardiac Markers Test 07/15/24 06:57 B-Type Natriuretic Peptide 104.13 pg/mL (0-100) Urinalysis Test 07/12/24 20:09 Urine Color Yellow (Yellow) Urine Clarity Clear (Clear) Urine pH 5.5 (5.0-9.0) Urine Specific [place] 1.016 (1.001-1.035) Urine Protein Negative (Negative) Urine Ketones Negative (Negative) Urine Blood Negative /uL (Negative) Urine Nitrite Negative (Negative) Urine Bilirubin Negative (Negative) Urine Urobilinogen Normal mg/dL (Negative) Urine Leukocyte Esterase Negative /uL (Negative) Urine RBC None seen /hpf (0 - 3) Urine WBC 1 /hpf (0 - 3) Urine Squamous Epithelial Cells Few /hpf (<5) Urine Bacteria None seen /hpf (None Seen) Urine Glucose Normal mg/dL (Normal) Microbiology Microbiology Date/Time Source Procedure Growth Status 07/14/24 04:00 Sputum Gram Stain - Final Resulted 07/14/24 04:00 Sputum Respiratory Culture - Preliminary Resulted 07/13/24 12:33 Nose MRSA Screen - Final Complete Assessment/Plan Assessment/Plan Acute hypoxic respiratory failure likely due to multifocal pneumonia and COVID- 19 COVID-19 pneumonia R/O Gram-positive/negative bacterial pneumonia -currently on 9 L of oxygen through nasal cannula -CT of the chest showed bilateral lower lobe ground-glass opacities consistent with a solid consolidation and multifocal pneumonia. There was also mediastinal lymph nodes which could be reactive or neoplastic. There were bilateral lung cyst as well. -start IV Zosyn, Vanco, and Azithromycin -start respiratory therapy with albuterol and ipratropium med nebs -ordered sputum cultures -influenza test came back negative -monitor saturation closely Mediastinal lymph nodes and bilateral lung cysts -follow-up with pulmonology as outpatient Primary hypertension -Monitor BP closely Dyslipidemia -Atorvastatin 40mg daily Hx of Gout -Continue Allopurinol 300mg daily Hypothyroidism -Order TSH and FT4 -Resume Home levothyroxine 100mcg +125mcg = 225mcg daily Goals of care discussed with the patient and at bedside for 25min, FULL CODE Plan discussed with: Patient My Orders Orders - NICOLAS JOSÉ MD Procedure Category Date Status Time * Swallow Request ST 07/14/24 Transmitted 16:52 Regular Diet DIET 07/14/24 Transmitted Dinner Vancomycin PHA 07/15/24 In Process 1.25gm/250ml 10:00 Vancomycin Per MUSTAPHA 07/15/24 In Process Pharmacy Protoc 10:00 Vancomycin,Trough LAB 07/16/24 Verified 21:00 Basic Metabolic Panel LAB 07/16/24 Verified 04:00 Comprehensive LAB 07/16/24 Verified Metabolic Panel 04:00 Date of Service: Jul 15, 2024 Billing Provider: NICOLAS JOSÉ MD Common Visit Codes: [id number] INP/OBS CARE(HIGH) NICOLAS JOSÉ MD Jul 15, 2024 16:01
[2024-07-16] VITALS (16 sets, daily range): BP systolic 108–131; BP diastolic 53–70; PULSE 71–92; RESP 17–20; TEMP 97.2–97.8; O2SAT 90–96
[2024-07-16 08:34] LABS: Alanine Aminotransferase 20 U/L (7-40); Albumin 3.6 g/dL (3.2-4.8); Alkaline Phosphatase 53 U/L (46-116); Anion Gap 7 (5-15); Aspartate Aminotransferase 37 U/L (13-40); BUN/Creatinine Ratio 26.2 (10.0-20.0); Bilirubin, Total 0.6 mg/dL (0.2-1.0); Calcium 9.3 mg/dL (8.7-10.4); Carbon Dioxide 30 mmol/L (20-31); Chloride 101 mmol/L (98-107); Potassium 5.1 mmol/L (3.5-5.1); Sodium 138 mmol/L (136-145); Total Protein 5.8 g/dL (5.7-8.2)
[2024-07-16 08:36] LABS: Blood Urea Nitrogen 28 mg/dL (9-23); Glucose 162 mg/dL (74-106)
--- NOTE | 2024-07-16 10:22 | DVH ---
XY CHEST TWO VIEWS ROUTINE CLINICAL HISTORY: PNA COMPARISON: None TECHNIQUE: Frontal and lateral view of the chest was obtained FINDINGS: Lines and Tubes: None Lungs: Bilateral lower lobe opacities. Possible right lower lobe collapse. Pleura: No effusion. No pneumothorax. Cardiomediastinal contours: Unremarkable Bones: No acute osseous abnormality. IMPRESSION: 1. Bilateral lower lobe opacities which may reflect atelectasis or pneumonia. Possible right lower lo be collapse. CT of the chest without contrast is recommended.
--- NOTE | 2024-07-16 14:54 | DVHPN2 ---
Subjective Seen and examined at bedside. Remains on 9L simple face mask. Will get CT Chest as CXR showing possible lung collapse. Changes from previous H/P or p: No Changes Eyes: No Pain, No Vision change, No Conjunctivae inflammation, No Eyelid inflammation, No Other, No Redness ENT: No Ear pain, No Ear discharge, No Nose pain, No Nose discharge, No Nose congestion, No Mouth pain, No Mouth swelling, No Throat pain, No Throat swelling, No Other Cardiovascular: No Chest Pain, No Palpitations, No Orthopnea, No Paroxysmal Noc. Dyspnea, No Edema, No Lt Headedness, No Other Respiratory: No Cough, No Dry; Shortness of breath; No SOB with excertion, No Wheezing, No Hemoptysis, No Pleuritic Pain, No Sputum, No Other Gastrointestinal: No Nausea, No Vomiting, No Abdominal Pain, No Diarrhea, No Constipation, No Melena, No Hematochezia, No Other Genitourinary: No Dysuria, No Frequency, No Incontinence, No Hematuria, No Retention, No Other Musculoskeletal: No other, No neck pain, No shoulder pain, No arm pain, No back pain, No hand pain, No leg pain, No foot pain Skin: No Rash, No Lesions, No Jaundice, No Bruising, No Other Objective Vitals Vital Signs Date Time Temp Pulse Resp B/P (MAP) Pulse Ox O2 Delivery O2 Flow Rate FiO2 07/16/24 13:03 92 18 92 07/16/24 12:57 Simple Mask* 7 60 07/16/24 12:14 97.2 108/55 (72) 97.2 Intake/Output Intake and Output 07/16/24 07:00 Intake Total 2240 ml Output Total 400 ml Balance 1840 ml Intake Oral 1190 ml IV Total 1050 ml Output Urine Total 400 ml # Voids 2 # Bowel Movements 1 Exam Gen: in bed, NAD Cvs: N S1/S2, RRR Resp: Diminished b/l Abd: Morbidly Obese 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 Ext: Mild edema with redness Medications Current Medications Medications Dose Ordered Sig/Nikos Route Start Time Stop Time Status Last Admin Dose Admin Albuterol 2.5 mg Q6HP NEB 07/13/24 00:00 07/16/24 12:56 2.5 MG Ipratropium [place] 0.5 mg Q6HP NEB 07/13/24 00:00 07/16/24 12:57 0.5 MG Acetaminophen 650 mg Q6HP PRN PO 07/12/24 21:30 Patient Own Medication 1 DAILY PO 07/13/24 10:00 Allopurinol 300 mg DAILY PO 07/13/24 10:00 07/16/24 09:46 300 MG Atorvastatin Calcium 40 mg DAILY PO 07/13/24 10:00 07/16/24 09:46 40 MG Levothyroxine Sodium 100 mcg DAILY PO 07/13/24 06:00 07/16/24 09:46 100 MCG Remdesivir 0 ml @ 0 mls/hr PER PHARMACY IV 07/13/24 10:00 07/17/24 10:01 UNV Enoxaparin Sodium 40 mg BID SC 07/13/24 10:00 UNV Remdesivir 0 ml @ 0 mls/hr PER PHARMACY IV 07/13/24 11:15 07/17/24 11:16 Enoxaparin Sodium 40 mg BID SC 07/13/24 22:00 07/16/24 09:47 40 MG Remdesivir 100 mg/ Sodium Chloride 250 ml @ 250 mls/hr DAILY@1500 IV 07/14/24 15:00 07/17/24 15:59 07/15/24 14:50 250 MLS/HR Vancomycin HCl 0 ml @ 0 mls/hr UD IV 07/13/24 14:30 Guaifenesin/ Dextromethorphan 10 ml Q4HP PRN PO 07/13/24 16:15 07/14/24 09:26 10 ML Dexamethasone Sodium Phosphate 10 mg Q12HR IV 07/13/24 22:00 07/16/24 09:46 10 MG Famotidine 40 mg DAILY PO 07/14/24 10:00 07/16/24 09:45 40 MG Azithromycin 500 mg DAILY PO 07/14/24 10:00 07/18/24 09:59 07/16/24 09:46 500 MG Piperacillin Sod/ Tazobactam Sod 100 ml @ 25 mls/hr Q6H IV 07/13/24 21:00 07/16/24 07:42 25 MLS/HR Acetylcysteine 200 mg Q8HR NEB 07/13/24 22:00 07/16/24 06:06 200 MG Furosemide 20 mg BIDD IV 07/14/24 18:00 07/16/24 05:51 20 MG Vancomycin HCl 250 ml @ 200 mls/hr Q12H IV 07/15/24 10:00 07/16/24 11:51 200 MLS/HR Laboratory Results Laboratory Tests 07/14/24 04:59 07/16/24 07:16 Chemistry Test 07/16/24 07:16 Albumin 3.6 g/dL (3.2-4.8) Calcium Level 9.3 mg/dL (8.7-10.4) Total Protein 5.8 g/dL (5.7-8.2) LFT Test 07/16/24 07:16 Alanine Aminotransferase (ALT) 20 U/L (7-40) Alkaline Phosphatase 53 U/L (46-116) Aspartate Amino Transferase (AST) 37 U/L (13-40) Total Bilirubin 0.6 mg/dL (0.2-1.0) Urinalysis Test 07/12/24 20:09 Urine Color Yellow (Yellow) Urine Clarity Clear (Clear) Urine pH 5.5 (5.0-9.0) Urine Specific [place] 1.016 (1.001-1.035) Urine Protein Negative (Negative) Urine Ketones Negative (Negative) Urine Blood Negative /uL (Negative) Urine Nitrite Negative (Negative) Urine Bilirubin Negative (Negative) Urine Urobilinogen Normal mg/dL (Negative) Urine Leukocyte Esterase Negative /uL (Negative) Urine RBC None seen /hpf (0 - 3) Urine WBC 1 /hpf (0 - 3) Urine Squamous Epithelial Cells Few /hpf (<5) Urine Bacteria None seen /hpf (None Seen) Urine Glucose Normal mg/dL (Normal) Microbiology Microbiology Date/Time Source Procedure Growth Status 07/14/24 04:00 Sputum Gram Stain - Final Complete 07/14/24 04:00 Sputum Respiratory Culture - Final Complete 07/13/24 12:33 Nose MRSA Screen - Final Complete Assessment/Plan Assessment/Plan Acute hypoxic respiratory failure likely due to multifocal pneumonia and COVID- 19 COVID-19 pneumonia R/O Gram-positive/negative bacterial pneumonia -currently on 9 L of oxygen through nasal cannula -CT of the chest showed bilateral lower lobe ground-glass opacities consistent with a solid consolidation and multifocal pneumonia. There was also mediastinal lymph nodes which could be reactive or neoplastic. There were bilateral lung cyst as well. -start IV Zosyn, Vanco, and Azithromycin -start respiratory therapy with albuterol and ipratropium med nebs -ordered sputum cultures -influenza test came back negative -monitor saturation closely Mediastinal lymph nodes and bilateral lung cysts -follow-up with pulmonology as outpatient Primary hypertension -Monitor BP closely Dyslipidemia -Atorvastatin 40mg daily Hx of Gout -Continue Allopurinol 300mg daily Hypothyroidism -Order TSH and FT4 -Resume Home levothyroxine 100mcg +125mcg = 225mcg daily Goals of care discussed with the patient and at bedside for 25min, FULL CODE Plan discussed with: Patient My Orders Orders - NICOLAS JOSÉ MD Procedure Category Date Status Time Chest Two Views XY 07/16/24 Resulted Routine 09:[address] 07/16/24 Logged 14:49 Complete Blood Count LAB 07/17/24 Verified 04:00 Basic Metabolic Panel LAB 07/17/24 Verified 04:00 Magnesium LAB 07/17/24 Verified 04:00 Date of Service: Jul 16, 2024 Billing Provider: NICOLAS JOSÉ MD Common Visit Codes: [id number] INP/OBS CARE(HIGH) NICOLAS JOSÉ MD Jul 16, 2024 14:54
--- NOTE | 2024-07-16 15:32 | DVH ---
CT Chest without intravenous contrast INDICATION: Right Lung Collapse TECHNIQUE: Multidetector spiral CT of the chest was performed from the lung apices to the upper abdom en. Axial, coronal and sagittal multiplanar reformats were performed. Radiation dose : Chest: CTDI volume is 31 mGy. Dose-length product is 1036 mGy*cm The dose indicators for CT are the volume computed tomography (CT) dose index (CTDIvol) and the dose length product (DLP), and are measured in units of mGy and mGy-cm, respectively. These indicators are not patient dose, but values generated from the CT scanner acquisition factors. The report includes radiation exposure data for exposures received during this examination. Comparison: CT CHEST WITHOUT CONTRAST on DOS: 07/12/24 Findings: Lower neck: Atrophic thyroid Lungs: Limited by motion. Cystic changes in both lungs. Patchy consolidation in both lungs. Elevatio n of the right hemidiaphragm. Heart/Vascular Structures: Normal heart size. No pericardial effusion. Lymph Nodes: No adenopathy Pleura: No pleural effusion or significant pneumothorax. Musculoskeletal: No acute osseous abnormality. Soft tissues: Normal. Upper abdomen: Limited portions of the upper abdomen are unremarkable. IMPRESSION: 1. Limited by motion artifact. Extensive cystic changes in both lungs. Patchy consolidation in both lungs. No definite pneumothorax identified. No significant interval change compared to prior exam. Radiation optimization: All CT scans at this facility use at least one of these dose optimization carolyn hniques: Automated exposure control mA and/or kV adjustment per patient size (includes targeted exams where dose is matched to clinical indication) or iterative reconstruction. HS:Y
--- NOTE | 2024-07-16 17:23 | MEDREC ---
[facility] Intervention Section I [facility] Intervention: Deescalate AB based on CS (PATIENT IS ON REMDESIVIR FOR COVID19 PNEUMONIA. THE FINAL RESPIRATORY CULTURE RESULTS TODAY 07/16 WITH NORMAL OROPHARYNGEAL ANY. PLEASE CONSIDER DISCONTINUING ZOSYN, VANCOMYCIN IF THERE IS NO MORE CONCERN FOR BACTERIAL INFECTIONS) JOSEPH SANCHEZ Jul 16, 2024 17:23
[2024-07-16] MEDS: methylPREDNISolone SOD SUCC 125 MG/2 ML VL IV SCH (21:12)
[2024-07-16] MEDS ORDERED: D5W 5% IV SCH (22:45)
[2024-07-16] MEDS ORDERED: VORICONAZOLE IV SCH (22:45)
--- NOTE | 2024-07-16 22:52 | DVHINCON2 ---
DATE OF CONSULTATION: 07/16/2024 PULMONARY CONSULT PRIMARY PHYSICIAN: Nicolas Shah M.D. HISTORY OF PRESENT ILLNESS: The patient was seen in the morning. The patient is feeling better. He denies any significant shortness of breath, but has not gotten out of bed to chair. He says he is not bringing up much expectoration. He has not been running any fevers. His urine output has been stable. He has not gotten out of bed to chair. He is still requiring 9 liters to maintain saturations. PHYSICAL EXAMINATION: VITAL SIGNS: Stable, afebrile. Respiratory rate was 18, no distress, no accessory muscles. NECK: Supple. Moderate oropharyngeal crowding. No lymphadenopathy. Chest predominantly right sided rales, prolonged exhalation. No wheezing. Air entry is diminished at bases. COR: S1, S2. No murmurs, no gallops. PMI is normal. Heart sounds are distant and difficult to appreciate. ABDOMEN: Soft, obese. Bowel sounds present. No tenderness, guarding, rigidity or rebound. EXTREMITIES: 1+ pedal edema. No clubbing or cyanosis. NEUROLOGIC: Awake, oriented, able to move all extremities. LABORATORY DATA: Lab work were noted. Last WBC count 7.5, hematocrit is 50, platelet count 234. Previous all labs were reviewed. CMP done today was reviewed, is largely unremarkable except for BUN of 28, albumin of 3.6. Rheumatological screen has been done, but is pending. The patient has been positive for COVID antigen rapid test. Influenza A and B have been negative. The patient's sputum has been sent for PCP, but the results are pending. All cultures and gram stains for respiratory cultures have been negative. The patient had a followup CT done today, which was later reviewed, which shows cystic changes in both lungs with patchy consolidation at both bases. No significant interval change. IMPRESSION: Acute respiratory failure, hypoxia, bilateral pneumonia, underlying COVID pneumonia, morbid obesity, atypical infections. Possibility of aspiration and cystic changes in the lung. PLAN: We will decrease FiO2 to 7 liters. Titrate further as tolerated to keep saturations greater than 90%. Incentive spirometry. The patient states he has been doing incentive spirometry and has been able to go up to 1500. We will continue current antibiotic. We will await the results of PCP. The patient also now on Solu-Medrol. The patient remains on vancomycin. Remdesivir has also been started. The patient is on Zosyn. The patient remains on med nebs. Possibility of atypical infection was discussed and the cystic changes unclear whether longstanding or new, possibility of lymphangioleiomyomatosis. Possible previous atypical Staph infections with pneumatoceles. Other possible causes were discussed. Also, recommended ID evaluation. If this patient does not improve, possibility of bronchoscopy was also discussed. We will followup periodically as needed. Please call if any questions or concerns. Discussed with bedside RN, RT, as well as Dr. Shah later in the day. Overall, critical time 33 minutes. Juan Carlos Warner MD /DIONNE TID: [id number] RECEIPT: [id number] cc: NICOLAS SHAH M.D.
[2024-07-16] MEDS: MEROPENEM 1GM IVPB 50 ML IV ONE (23:11)
[2024-07-17] VITALS (18 sets, daily range): BP systolic 110–133; BP diastolic 57–73; PULSE 66–100; RESP 16–20; TEMP 97.8–98.6; O2SAT 90–97
[2024-07-17] MEDS: MEROPENEM 1GM IVPB 50 ML IV SCH (05:27)
[2024-07-17 06:23] LABS: Anion Gap 7 (5-15); Calcium 9.1 mg/dL (8.7-10.4); Carbon Dioxide 27 mmol/L (20-31); Chloride 102 mmol/L (98-107); Sodium 136 mmol/L (136-145)
[2024-07-17 06:29] LABS: BUN/Creatinine Ratio 18.1 (10.0-20.0); Blood Urea Nitrogen 19 mg/dL (9-23); Magnesium 2.6 mg/dL (1.6-2.6)
[2024-07-17 06:36] LABS: Glucose 171 mg/dL (74-106)
[2024-07-17 06:37] LABS: Basophils # (auto) 0 10 ^3/uL (0-0.2); Basophils % (auto) 0.2 % (0.0-2.0); Eosinophils # (auto) 0 10 ^3/uL (0-0.8); Hematocrit 48.9 % (41.0-53.0); Hemoglobin 15.9 g/dL (13.5-17.5); Lymphocytes # (auto) 0.1 10 ^3/uL (0.4-5.4); Mean Corpuscular Hemoglobin 32.2 pg (28.0-32.0); Mean Corpuscular Hgb Conc. 32.5 g/dL (32.0-36.0); Mean Corpuscular Volume 99.2 fL (80.0-100.0); Monocytes # (auto) 0.3 10 ^3/uL (0-1.3); Neutrophils # (auto) 4.1 10 ^3/uL (1.6-8.6); Neutrophils % (auto) 90.8 % (37.0-80.0); Nucleated Red Blood Cells % 0.6 %; Platelet Count (auto) 92 10^3/uL (140-450); Red Blood Cells 4.93 10^6/uL (4.5-5.90); Red Cell Distribution Width 15.3 % (11.8-14.3); White Blood Cell 4.5 10^3/uL (4.4-10.8)
[2024-07-17] MEDS ORDERED: VORICONAZOLE IV SCH ×2 (09:00→22:45)
[2024-07-17] MEDS ORDERED: D5W 5% IV SCH ×2 (09:00→22:45)
[2024-07-17] MEDS: VORICONAZOLE IV SCH (09:47)
[2024-07-17] MEDS: D5W 5% IV SCH (09:47)
[2024-07-17] MEDS: VANCOMYCIN 1GM/250mL NS or D5W KIT IV SCH (12:00)
--- NOTE | 2024-07-17 12:02 | DVHPN2 ---
Reviewed: Care Plan, H&P, Labs, Medications, Previous Orders, Radiology Changes from previous H/P or p: No Changes Eyes: No Pain, No Vision change, No Conjunctivae inflammation, No Eyelid inflammation, No Other, No Redness ENT: No Ear pain, No Ear discharge, No Nose pain, No Nose discharge, No Nose congestion, No Mouth pain, No Mouth swelling, No Throat pain, No Throat swelling, No Other Cardiovascular: No Chest Pain, No Palpitations, No Orthopnea, No Paroxysmal Noc. Dyspnea, No Edema, No Lt Headedness, No Other Respiratory: No Cough, No Dry; Shortness of breath; No SOB with excertion, No Wheezing, No Hemoptysis, No Pleuritic Pain, No Sputum, No Other Gastrointestinal: No Nausea, No Vomiting, No Abdominal Pain, No Diarrhea, No Constipation, No Melena, No Hematochezia, No Other Genitourinary: No Dysuria, No Frequency, No Incontinence, No Hematuria, No Retention, No Other Musculoskeletal: No other, No neck pain, No shoulder pain, No arm pain, No back pain, No hand pain, No leg pain, No foot pain Skin: No Rash, No Lesions, No Jaundice, No Bruising, No Other Objective Vitals Vital Signs Date Time Temp Pulse Resp B/P (MAP) Pulse Ox O2 Delivery O2 Flow Rate FiO2 07/17/24 10:00 94 Nasal Cannula* 4 36 07/17/24 09:00 98.0 100 20 110/57 (74) 98.0 Intake/Output Intake and Output 07/17/24 07:00 Intake Total 2200 ml Balance 2200 ml Intake Oral 1225 ml IV Total 975 ml # Voids 5 # Bowel Movements 1 Medications Current Medications Medications Dose Ordered Sig/Nikos Route Start Time Stop Time Status Last Admin Dose Admin Albuterol 2.5 mg Q6HP NEB 07/13/24 00:00 07/17/24 07:28 2.5 MG Ipratropium [place] 0.5 mg Q6HP NEB 07/13/24 00:00 07/17/24 07:28 0.5 MG Acetaminophen 650 mg Q6HP PRN PO 07/12/24 21:30 Patient Own Medication 1 DAILY PO 07/13/24 10:00 Allopurinol 300 mg DAILY PO 07/13/24 10:00 07/17/24 09:31 300 MG Atorvastatin Calcium 40 mg DAILY PO 07/13/24 10:00 07/17/24 09:31 40 MG Levothyroxine Sodium 100 mcg DAILY PO 07/13/24 06:00 07/17/24 09:31 100 MCG Remdesivir 0 ml @ 0 mls/hr PER PHARMACY IV 07/13/24 10:00 07/17/24 10:01 UNV Enoxaparin Sodium 40 mg BID SC 07/13/24 10:00 UNV Enoxaparin Sodium 40 mg BID SC 07/13/24 22:00 07/17/24 09:32 40 MG Remdesivir 100 mg/ Sodium Chloride 250 ml @ 250 mls/hr DAILY@1500 IV 07/14/24 15:00 07/17/24 15:59 07/16/24 15:00 250 MLS/HR Vancomycin HCl 0 ml @ 0 mls/hr UD IV 07/13/24 14:30 Guaifenesin/ Dextromethorphan 10 ml Q4HP PRN PO 07/13/24 16:15 07/14/24 09:26 10 ML Famotidine 40 mg DAILY PO 07/14/24 10:00 07/17/24 09:31 40 MG Acetylcysteine 200 mg Q8HR NEB 07/13/24 22:00 07/17/24 07:28 200 MG Furosemide 20 mg BIDD IV 07/14/24 18:00 07/17/24 05:26 20 MG Methylprednisolone Sodium Succinate 60 mg BID IV 07/16/24 22:00 07/17/24 09:32 60 MG Meropenem 50 ml @ 17 mls/hr Q8HR IV 07/17/24 06:00 07/17/24 05:27 17 MLS/HR Vancomycin HCl 250 ml @ 250 mls/hr Q12H IV 07/17/24 12:00 Voriconazole 480 mg/Dextrose 298 ml @ 149 mls/hr Q12H IV 07/17/24 09:30 07/17/24 23:29 07/17/24 09:47 149 MLS/HR Voriconazole 320 mg/Dextrose 282 ml @ 141 mls/hr Q12HR IV 07/18/24 10:00 Laboratory Results Laboratory Tests 07/17/24 04:48 Chemistry Test 07/17/24 04:48 Calcium Level 9.1 mg/dL (8.7-10.4) Magnesium Level 2.6 mg/dL (1.6-2.6) Urinalysis Test 07/12/24 20:09 Urine Color Yellow (Yellow) Urine Clarity Clear (Clear) Urine pH 5.5 (5.0-9.0) Urine Specific [place] 1.016 (1.001-1.035) Urine Protein Negative (Negative) Urine Ketones Negative (Negative) Urine Blood Negative /uL (Negative) Urine Nitrite Negative (Negative) Urine Bilirubin Negative (Negative) Urine Urobilinogen Normal mg/dL (Negative) Urine Leukocyte Esterase Negative /uL (Negative) Urine RBC None seen /hpf (0 - 3) Urine WBC 1 /hpf (0 - 3) Urine Squamous Epithelial Cells Few /hpf (<5) Urine Bacteria None seen /hpf (None Seen) Urine Glucose Normal mg/dL (Normal) Microbiology Microbiology Date/Time Source Procedure Growth Status 07/14/24 04:00 Sputum Gram Stain - Final Complete 07/14/24 04:00 Sputum Respiratory Culture - Final Complete 07/13/24 12:33 Nose MRSA Screen - Final Complete Labs and/or images reviewed: Labs reviewed by me, Image(s) reviewed by me Assessment/Plan Assessment/Plan Covering for Dr. Kelley Acute hypoxic respiratory failure likely due to multifocal pneumonia and COVID- 19, on 4 L of oxygen by nasal cannula COVID-19 positive pneumonia: Pulmonary consult by Dr. Warner appreciated, continue supportive treatment including remdesivir Mediastinal lymph nodes and bilateral lung cysts -follow-up with pulmonology as outpatient Hypertension Hyperlipidemia Gout Hypothyroidism Morbid obesity Time spent 65 minutes Advanced care planning time 20 minutes Patient is full code Plan discussed with: Patient Date of Service: Jul 17, 2024 Billing Provider: JASON PALMA MD Common Visit Codes: [id number] CARE 30-74 MIN JASON PALMA MD Jul 17, 2024 12:02
[2024-07-17] MEDS: IPRATROPIUM BROM 0.5 MG/2.5ML INH SOL NEB SCH (19:00)
[2024-07-17] MEDS: ALBUTEROL SULF 2.5 MG/0.5ML(0.5%) NEB SOLN NEB SCH (19:00)
[2024-07-17] MEDS: VANCOMYCIN 750MG KIT 100 ML IV SCH (22:33)
[2024-07-18] VITALS (22 sets, daily range): BP systolic 118–136; BP diastolic 63–79; PULSE 63–110; RESP 14–20; TEMP 97.5–98.4; O2SAT 91–99
--- NOTE | 2024-07-18 08:01 | DVHPN2 ---
Reviewed: Care Plan, H&P, Labs, Medications, Previous Orders, Radiology Changes from previous H/P or p: No Changes Eyes: No Pain, No Vision change, No Conjunctivae inflammation, No Eyelid inflammation, No Other, No Redness ENT: No Ear pain, No Ear discharge, No Nose pain, No Nose discharge, No Nose congestion, No Mouth pain, No Mouth swelling, No Throat pain, No Throat swelling, No Other Cardiovascular: No Chest Pain, No Palpitations, No Orthopnea, No Paroxysmal Noc. Dyspnea, No Edema, No Lt Headedness, No Other Respiratory: No Cough, No Dry; Shortness of breath; No SOB with excertion, No Wheezing, No Hemoptysis, No Pleuritic Pain, No Sputum, No Other Gastrointestinal: No Nausea, No Vomiting, No Abdominal Pain, No Diarrhea, No Constipation, No Melena, No Hematochezia, No Other Genitourinary: No Dysuria, No Frequency, No Incontinence, No Hematuria, No Retention, No Other Musculoskeletal: No other, No neck pain, No shoulder pain, No arm pain, No back pain, No hand pain, No leg pain, No foot pain Skin: No Rash, No Lesions, No Jaundice, No Bruising, No Other Objective Vitals Vital Signs Date Time Temp Pulse Resp B/P (MAP) Pulse Ox O2 Delivery O2 Flow Rate FiO2 07/18/24 06:28 101 16 99 07/18/24 06:19 Nasal Cannula 4.0 07/18/24 06:19 36 07/18/24 05:36 121/71 07/18/24 05:00 98.4 98.4 Intake/Output Intake and Output 07/18/24 07:00 Intake Total 1071 ml Output Total 400 ml Balance 671 ml IV Total 1071 ml Output Urine Total 400 ml Medications Current Medications Medications Dose Ordered Sig/Nikos Route Start Time Stop Time Status Last Admin Dose Admin Acetaminophen 650 mg Q6HP PRN PO 07/12/24 21:30 Patient Own Medication 1 DAILY PO 07/13/24 10:00 Allopurinol 300 mg DAILY PO 07/13/24 10:00 07/17/24 09:31 300 MG Atorvastatin Calcium 40 mg DAILY PO 07/13/24 10:00 07/17/24 09:31 40 MG Levothyroxine Sodium 100 mcg DAILY PO 07/13/24 06:00 07/17/24 09:31 100 MCG Remdesivir 0 ml @ 0 mls/hr PER PHARMACY IV 07/13/24 10:00 07/17/24 10:01 UNV Enoxaparin Sodium 40 mg BID SC 07/13/24 10:00 UNV Enoxaparin Sodium 40 mg BID SC 07/13/24 22:00 07/17/24 09:32 40 MG Vancomycin HCl 0 ml @ 0 mls/hr UD IV 07/13/24 14:30 Guaifenesin/ Dextromethorphan 10 ml Q4HP PRN PO 07/13/24 16:15 07/14/24 09:26 10 ML Famotidine 40 mg DAILY PO 07/14/24 10:00 07/17/24 09:31 40 MG Acetylcysteine 200 mg Q8HR NEB 07/13/24 22:00 07/18/24 06:15 200 MG Furosemide 20 mg BIDD IV 07/14/24 18:00 07/18/24 05:36 20 MG Methylprednisolone Sodium Succinate 60 mg BID IV 07/16/24 22:00 07/17/24 21:29 60 MG Meropenem 50 ml @ 17 mls/hr Q8HR IV 07/17/24 06:00 07/18/24 05:36 17 MLS/HR Voriconazole 320 mg/Dextrose 282 ml @ 141 mls/hr Q12HR IV 07/18/24 10:00 Albuterol 2.5 mg Q4HR NEB 07/17/24 18:00 07/18/24 06:15 2.5 MG Ipratropium [place] 0.5 mg Q4HR NEB 07/17/24 18:00 07/18/24 06:15 0.5 MG Vancomycin HCl 100 ml @ 100 mls/hr Q12H IV 07/17/24 22:00 07/17/24 22:33 100 MLS/HR Laboratory Results Laboratory Tests 07/17/24 04:48 Urinalysis Test 07/12/24 20:09 Urine Color Yellow (Yellow) Urine Clarity Clear (Clear) Urine pH 5.5 (5.0-9.0) Urine Specific [place] 1.016 (1.001-1.035) Urine Protein Negative (Negative) Urine Ketones Negative (Negative) Urine Blood Negative /uL (Negative) Urine Nitrite Negative (Negative) Urine Bilirubin Negative (Negative) Urine Urobilinogen Normal mg/dL (Negative) Urine Leukocyte Esterase Negative /uL (Negative) Urine RBC None seen /hpf (0 - 3) Urine WBC 1 /hpf (0 - 3) Urine Squamous Epithelial Cells Few /hpf (<5) Urine Bacteria None seen /hpf (None Seen) Urine Glucose Normal mg/dL (Normal) Microbiology Microbiology Date/Time Source Procedure Growth Status 07/14/24 04:00 Sputum Gram Stain - Final Complete 07/14/24 04:00 Sputum Respiratory Culture - Final Complete 07/13/24 12:33 Nose MRSA Screen - Final Complete Labs and/or images reviewed: Labs reviewed by me, Image(s) reviewed by me Assessment/Plan Assessment/Plan Covering for Dr. Kelley Acute hypoxic respiratory failure likely due to multifocal pneumonia and COVID- 19, on 4 L of oxygen by nasal cannula COVID-19 positive pneumonia: Pulmonary consult by Dr. Warner appreciated, continue supportive treatment including remdesivir Mediastinal lymph nodes and bilateral lung cysts -follow-up with pulmonology as outpatient Hypertension Hyperlipidemia Gout Hypothyroidism Morbid obesity Time spent 45 minutes Continue current management Patient is full code Plan discussed with: Patient My Orders Orders - JASON PALMA MD Procedure Category Date Status Time Albuterol Medneb PHA 07/17/24 In Process (Ventolin Medneb) 18:00 Ipratropium Medneb PHA 07/17/24 In Process (Atrovent Medneb) 18:00 Date of Service: Jul 18, 2024 Billing Provider: JASON PALMA MD Common Visit Codes: [id number] INP/OBS CARE(HIGH) JASON PALMA MD Jul 18, 2024 08:01
[2024-07-18 08:06] LABS: Rheumatoid Arthritis Factor <10.0 IU/mL (<14.0)
[2024-07-18] MEDS: D5W 5% IV SCH (15:10)
[2024-07-18] MEDS: VORICONAZOLE IV SCH (15:10)
--- NOTE | 2024-07-18 19:38 | DVHINCON2 ---
Date of service: Jul 18, 2024 Referring Physician Mike Shah MD Reason for Consultation Acute hypoxic respiratory failure, chronic hypercarbic respiratory failure, pneumonia, COVID-19 History of Present Illness A 74-year-old man with past medical history of hypertension, dyslipidemia, hyp othyroidism, gout, and skin cancer who presented to the ED on 07/12/24 due to acute shortness of breath associated with productive cough and sputum production. Patient reports ongoing shortness of breath for a few months, worsened over 1 week prior to presentation with associated cough and whitish sputum production. Denied fever, chills, chest pain, palpitations or any other symptoms. initial labs showed CBC, CMP were grossly unremarkable, troponins were negative and BNP within normal range. The patient tested positive for COVID-19 and negative for flu. CT scan of the chest showed bilateral lower lobe ground-glass opacities compatible with solid consolidations, multifocal pneumonia. There were also some lung cysts, bilateral mediastinal lymph nodes, be reactive or neoplastic. Patient was admitted for further care and pulmonary consultation is requested for evaluation and management due to these findings. Review of Systems: 14-point review of systems negative unless otherwise noted above. Past Medical History: Hypertension, dyslipidemia, hypothyroidism, gout, and skin cancer Past Surgical History: Left leg surgery for skin cancer. Medications: Reviewed. Allergies: No known drug allergies. Family History: NM and thyroid disease. Social History: Nonsmoker. No alcohol or illicit drug use. Family History: FH: heart attack G8 FATHER FH: thyroid disease G8 MOTHER Allergies: Coded Allergies: NO KNOWN ALLERGIES (Unverified , 07/12/24) Home Meds Reported Medications Aspirin (Aspir-81) 81 Mg Tab, 81 MG PO DAILY, TAB 07/13/24 Allopurinol (Allopurinol) 300 Mg Tab, 1 TAB PO DAILY 07/13/24 Furosemide (Furosemide) 40 Mg Tab, 1 TAB PO BID 07/13/24 Azilsartan Medoxomil-Chlorthal (Edarbyclor 40-12.5 mg) 1 Tab Tab, 1 TAB PO DAILY, TAB 07/13/24 Simvastatin (Simvastatin) 20 Mg Tab, 1 TAB PO DAILY 07/13/24 Levothyroxine Sodium (Synthroid) 100 Mcg Tab, 1 TAB PO DAILY 07/13/24 Levothyroxine Sodium (Synthroid) 125 Mcg Tab, 1 TAB PO DAILY 07/13/24 Current Medications Current Medications Medications (Trade) Dose Ordered Sig/Nikos Route PRN Reason Start Time Stop Time Status Last Admin Voriconazole 470 mg/Dextrose 297 ml @ 148.5 mls/ hr Q12H IV 07/17/24 22:45 07/16/24 23:37 DC Voriconazole 320 mg/Dextrose 282 ml @ 141 mls/hr Q12HR IV 07/18/24 10:00 07/18/24 15:10 Vancomycin HCl 100 ml @ 100 mls/hr Q12H IV 07/17/24 22:00 07/18/24 10:45 Levothyroxine Sodium (Synthroid Tablet) 100 mcg DAILY@0600 PO 07/19/24 06:00 Vital Signs Vital Signs Date Time Temp Pulse Resp B/P (MAP) Pulse Ox O2 Delivery O2 Flow Rate FiO2 07/18/24 18:45 118/79 07/18/24 18:13 83 18 93 07/18/24 18:05 Nasal Cannula 2.0 07/18/24 18:05 36 07/18/24 17:00 97.5 97.5 Physical Exam Gen.: Patient lying in bed in no apparent distress. On supplemental oxygen. Head: Normocephalic, atraumatic. Eyes: EOMI/PERRLA. Ears: Normal hearing. Normal anatomy. Neck/trachea: Trachea midline, supple. Nose: Normal external anatomy. Mouth: Moist mucous membranes. Chest: Decreased air entry bilaterally. No wheezing or rhonchi. Cardiovascular: Positive S1, positive S2. Regular rate and rhythm. Abdomen: Positive bowel sounds in all 4 quadrants. Soft, non-tender, non- distended. : Deferred. Rectal: Deferred. Skin: Warm, dry. Intact. Extremities: 2+ radial pulses bilaterally. No lower extremity edema. Neuro: Awake, alert, oriented x3. No gross motor or sensory deficits. Cranial nerves II through XII intact. Gait not assessed. Labs/Diagnostic Data Labs Test 07/18/24 09:30 07/17/24 16:01 07/17/24 04:48 07/16/24 07:16 Range/Units Creatinine 1.12 0.700-1.30 mg/dL Glomerular Filtration Rate Calc 70 >90 mL/min Random Vancomycin Level 18.4 H 5-10 ug/mL White Blood Count 4.5 # 4.4-10.8 10^3/uL Red Blood Count 4.93 4.5-5.90 10^6/uL Hemoglobin 15.9 13.5-17.5 g/dL Hematocrit 48.9 41.0-53.0 % Mean Corpuscular Volume 99.2 80.0-100.0 fL Mean Corpuscular Hemoglobin 32.2 H 28.0-32.0 pg Mean Corpuscular Hemoglobin Concent 32.5 32.0-36.0 g/dL Red Cell Distribution Width 15.3 H 11.8-14.3 % Platelet Count 92 #L 140-450 10^3/uL Mean Platelet Volume 9.1 6.9-10.8 fL Neutrophils (%) (Auto) 90.8 H 37.0-80.0 % Lymphocytes (%) (Auto) 3.0 L 10.0-50.0 % Monocytes (%) (Auto) 6.0 0.0-12.0 % Eosinophils (%) (Auto) 0.0 0.0-7.0 % Basophils (%) (Auto) 0.2 0.0-2.0 % Neutrophils # (Auto) 4.1 1.6-8.6 10 ^3/uL Lymphocytes # (Auto) 0.1 L 0.4-5.4 10 ^3/uL Monocytes # (Auto) 0.3 0-1.3 10 ^3/uL Eosinophils # (Auto) 0 0-0.8 10 ^3/uL Basophils # (Auto) 0 0-0.2 10 ^3/uL Nucleated Red Blood Cells 0.6 % Sodium Level 136 136-145 mmol/L Potassium Level 5.0 3.5-5.1 mmol/L Chloride Level 102 98-107 mmol/L Carbon Dioxide Level 27 20-31 mmol/L Anion Gap 7 5-15 Blood Urea Nitrogen 19 9-23 mg/dL BUN/Creatinine Ratio 18.1 10.0-20.0 Serum Glucose 171 H 74-106 mg/dL Calcium Level 9.1 8.7-10.4 mg/dL Magnesium Level 2.6 1.6-2.6 mg/dL Vancomycin Level Trough 26.2 H 5-10 ug/mL Total Bilirubin 0.6 0.2-1.0 mg/dL Aspartate Amino Transferase (AST) 37 13-40 U/L Alanine Aminotransferase (ALT) 20 7-40 U/L Alkaline Phosphatase 53 46-116 U/L Total Protein 5.8 5.7-8.2 g/dL Albumin 3.6 3.2-4.8 g/dL Rheumatoid Factor <10.0 <14.0 IU/mL Anti-Nuclear Antibody Comment Comment . Test 07/15/24 06:57 07/14/24 17:01 07/13/24 19:03 07/13/24 18:25 Range/Units B-Type Natriuretic Peptide 104.13 0-100 pg/mL Miscellaneous Referred Test (Refrg) Sent to [facility] Lactic Acid Level 1.2 0.4-2.0 mmol/L Blood Gas Specimen Type Arterial Blood Gas Sample Site Right radial Blood Gas Patient Temperature 37.0 Arterial Blood Date Drawn [id number] Arterial Blood pH 7.373 7.350-7.450 Arterial Blood Partial Pressure CO2 55.2 H 35.0-48.0 mmHg Arterial Blood Partial Pressure O2 67.7 L 83.0-108.0 mmHg Arterial Blood HCO3 31.4 H 21.0-28.0 mmol/L Arterial Blood Oxygen Saturation 93.2 L 94.0-98.0 % Arterial Blood Base Excess 4.3 H -2.0-3.0 mmol/L Arterial Blood Oxyhemoglobin 92.1 L 94.0-98.0 % Arterial Blood Carboxyhemoglobin 0.7 0.5-1.5 % Arterial Blood Methemoglobin 0.5 0.0-1.5 % Tan Test Modified Blood Gas Total Hemoglobin 17.50 13.5-17.5 g/dL Blood Gas Liter Flow 9.00 Blood Gas Modality Oxymizer FiO2 % 67.0 Test 07/13/24 14:50 07/12/24 20:14 07/12/24 20:09 07/12/24 19:34 Range/Units Prothrombin Time 10.8 9.3-11.8 sec Prothrombin Time INR 1.02 0.9-1.15 Activated Partial Thromboplast Time 32.9 24.5-34.5 SEC D-Dimer, Quantitative 1.47 H 0.0-0.49 mg/L FEU Troponin I High Sensitivity 10 </=54 ng/L Influenza Type A Antigen Negative Negative Influenza Type B Antigen Negative Negative SARS-CoV-2 Antigen (Rapid) Positive *A NEGATIVE Urine Color Yellow Yellow Urine Clarity Clear Clear Urine pH 5.5 5.0-9.0 Urine Specific [place] 1.016 1.001-1.035 Urine Protein Negative Negative Urine Ketones Negative Negative Urine Blood Negative Negative /uL Urine Nitrite Negative Negative Urine Bilirubin Negative Negative Urine Urobilinogen Normal Negative mg/dL Urine Leukocyte Esterase Negative Negative /uL Urine RBC None seen 0 - 3 /hpf Urine WBC 1 0 - 3 /hpf Urine Squamous Epithelial Cells Few <5 /hpf Urine Bacteria None seen None Seen /hpf Urine Glucose Normal Normal mg/dL Triglycerides Level 66 < 150 mg/dL Cholesterol Level < 200 mg/dL LDL Cholesterol 65 < 100 mg/dL HDL Cholesterol 50 40-59 mg/dL Test 07/12/24 18:40 Range/Units Hemoglobin A1c 6.1 H <5.7 % A1C Microbiology Date/Time Source Procedure Growth Status 07/14/24 04:00 Sputum Gram Stain - Final Complete 07/14/24 04:00 Sputum Respiratory Culture - Final Complete 07/13/24 12:33 Nose MRSA Screen - Final Complete Assessment Impression: Acute hypoxic respiratory failure Chronic hypercarbic respiratory failure Dependence on supplemental oxygen Pneumonia, likely gram negative Elevated D-dimer COVID-19 infection Plan: Supplemental oxygen 4 LPM NC Titrate to keep O2 sats between 88-94%. Taper O2 as tolerated. Continue bronchodilators/Mucomyst. Continue antibiotics/antifungal IV steroids Antitussive for cough CT chest demonstrated cystic changes bilaterally and patchy opacities in bilateral lungs. Diurese as tolerated w/ Lasix Monitor renal function. Monitor electrolytes. Supplement as necessary. Monitor ins and outs. DVT prophylaxis. Prognosis: Poor given patient's multiple co-morbidities. Rest of plan per hospitalist and other consultants. Thank you, Dr. Shah, for allowing me to participate in this patient's care. Further recommendations will depend on the patient's clinical course. Please do not hesitate to contact me if you have any questions or concerns. This medical document was created using an electronic medical record system with [employer] system. Although these documentations are being carefully reviewed, there may still be some phonetic and typographical changes. The errors are purely typographical, due to imperfection on the software program, and do not reflect any compromise in the patient's medical care. Plan discussed with: Patient, Other (IVONNE Denis/MD Shah) DANIELE FELICIANO MD Jul 18, 2024 19:38
[2024-07-19] VITALS (21 sets, daily range): BP systolic 111–140; BP diastolic 48–79; PULSE 57–99; RESP 16–20; TEMP 97.4–98.8; O2SAT 91–97
[2024-07-19] MEDS: LEVOTHYROXINE SODIUM 100 MCG TAB PO SCH (05:14)
[2024-07-19 12:01] LABS: Anion Gap 7 (5-15); Carbon Dioxide 26 mmol/L (20-31); Chloride 101 mmol/L (98-107); Potassium 4.8 mmol/L (3.5-5.1)
[2024-07-19 12:08] LABS: BUN/Creatinine Ratio 18.3 (10.0-20.0); Blood Urea Nitrogen 20 mg/dL (9-23)
[2024-07-19 12:11] LABS: Calcium 8.7 mg/dL (8.7-10.4); Glucose 229 mg/dL (74-106); Sodium 134 mmol/L (136-145)
[2024-07-19] MEDS: VANCOMYCIN 750MG KIT 100 ML IV SCH (13:50)
--- NOTE | 2024-07-19 14:15 | DVHPN2 ---
Subjective Seen and examined at bedside. Patient is now on 4L nasal cannula oxygen. Started Voriconazole. Reviewed: Care Plan, H&P, Labs, Medications, Previous Orders, Radiology Changes from previous H/P or p: No Changes Eyes: No Pain, No Vision change, No Conjunctivae inflammation, No Eyelid inflammation, No Other, No Redness ENT: No Ear pain, No Ear discharge, No Nose pain, No Nose discharge, No Nose congestion, No Mouth pain, No Mouth swelling, No Throat pain, No Throat swelling, No Other Cardiovascular: No Chest Pain, No Palpitations, No Orthopnea, No Paroxysmal Noc. Dyspnea, No Edema, No Lt Headedness, No Other Respiratory: No Cough, No Dry, No SOB with excertion, No Wheezing, No Hemoptysis, No Pleuritic Pain, No Sputum, No Other Gastrointestinal: No Nausea, No Vomiting, No Abdominal Pain, No Diarrhea, No Constipation, No Melena, No Hematochezia, No Other Genitourinary: No Dysuria, No Frequency, No Incontinence, No Hematuria, No Retention, No Other Musculoskeletal: No other, No neck pain, No shoulder pain, No arm pain, No back pain, No hand pain, No leg pain, No foot pain Skin: No Rash, No Lesions, No Jaundice, No Bruising, No Other Objective Vitals Vital Signs Date Time Temp Pulse Resp B/P (MAP) Pulse Ox O2 Delivery O2 Flow Rate FiO2 07/19/24 10:58 81 16 94 07/19/24 10:52 Nasal Cannula* 4 36 07/19/24 09:00 97.8 122/68 (86) 97.8 Intake/Output Intake and Output 07/19/24 07:00 Intake Total 2182 ml Output Total 750 ml Balance 1432 ml Intake Oral 1600 ml IV Total 582 ml Output Urine Total 750 ml # Voids 8 # Bowel Movements 2 Exam Gen: in bed, NAD Cvs: N S1/S2, RRR Resp: Diminished b/l Abd: Morbidly Obese [employer] Director: AAO x 4 Ext: Mild edema with redness Medications Current Medications Medications Dose Ordered Sig/Nikos Route Start Time Stop Time Status Last Admin Dose Admin Acetaminophen 650 mg Q6HP PRN PO 07/12/24 21:30 Patient Own Medication 1 DAILY PO 07/13/24 10:00 Allopurinol 300 mg DAILY PO 07/13/24 10:00 07/19/24 08:17 300 MG Atorvastatin Calcium 40 mg DAILY PO 07/13/24 10:00 07/19/24 08:17 40 MG Remdesivir 0 ml @ 0 mls/hr PER PHARMACY IV 07/13/24 10:00 07/17/24 10:01 UNV Enoxaparin Sodium 40 mg BID SC 07/13/24 10:00 UNV Enoxaparin Sodium 40 mg BID SC 07/13/24 22:00 07/17/24 09:32 40 MG Vancomycin HCl 0 ml @ 0 mls/hr UD IV 07/13/24 14:30 Guaifenesin/ Dextromethorphan 10 ml Q4HP PRN PO 07/13/24 16:15 07/14/24 09:26 10 ML Famotidine 40 mg DAILY PO 07/14/24 10:00 07/19/24 08:17 40 MG Acetylcysteine 200 mg Q8HR NEB 07/13/24 22:00 07/19/24 06:02 200 MG Furosemide 20 mg BIDD IV 07/14/24 18:00 07/19/24 05:12 20 MG Meropenem 50 ml @ 17 mls/hr Q8HR IV 07/17/24 06:00 07/19/24 05:13 17 MLS/HR Voriconazole 320 mg/Dextrose 282 ml @ 141 mls/hr Q12HR IV 07/18/24 10:00 07/19/24 08:19 141 MLS/HR Albuterol 2.5 mg Q4HR NEB 07/17/24 18:00 07/19/24 10:52 2.5 MG Ipratropium [place] 0.5 mg Q4HR NEB 07/17/24 18:00 07/19/24 10:52 0.5 MG Levothyroxine Sodium 100 mcg DAILY@0600 PO 07/19/24 06:00 07/19/24 05:14 100 MCG Vancomycin HCl 100 ml @ 100 mls/hr Q12H IV 07/19/24 11:00 07/19/24 13:50 100 MLS/HR Methylprednisolone Sodium Succinate 40 mg BID IV 07/19/24 22:00 Laboratory Results Laboratory Tests 07/17/24 04:48 07/19/24 11:00 Chemistry Test 07/19/24 11:00 Calcium Level 8.7 mg/dL (8.7-10.4) Urinalysis Test 07/12/24 20:09 Urine Color Yellow (Yellow) Urine Clarity Clear (Clear) Urine pH 5.5 (5.0-9.0) Urine Specific [place] 1.016 (1.001-1.035) Urine Protein Negative (Negative) Urine Ketones Negative (Negative) Urine Blood Negative /uL (Negative) Urine Nitrite Negative (Negative) Urine Bilirubin Negative (Negative) Urine Urobilinogen Normal mg/dL (Negative) Urine Leukocyte Esterase Negative /uL (Negative) Urine RBC None seen /hpf (0 - 3) Urine WBC 1 /hpf (0 - 3) Urine Squamous Epithelial Cells Few /hpf (<5) Urine Bacteria None seen /hpf (None Seen) Urine Glucose Normal mg/dL (Normal) Microbiology Microbiology Date/Time Source Procedure Growth Status 07/14/24 04:00 Sputum Gram Stain - Final Complete 07/14/24 04:00 Sputum Respiratory Culture - Final Complete 07/13/24 12:33 Nose MRSA Screen - Final Complete Assessment/Plan Assessment/Plan Acute hypoxic respiratory failure likely due to multifocal pneumonia and COVID- 19 COVID-19 pneumonia vs. Aspergillosis R/O Gram-positive/negative bacterial pneumonia -currently on 4L of oxygen through nasal cannula -CT of the chest showed bilateral lower lobe ground-glass opacities consistent with a solid consolidation and multifocal pneumonia. There was also mediastinal lymph nodes which could be reactive or neoplastic. There were bilateral lung cyst as well. -Cont Vanco, Merrem, and Voriconazol -start respiratory therapy with albuterol and ipratropium med nebs -ordered sputum cultures -influenza test came back negative -monitor saturation closely Possible Cytokine Storm Syndrome 3-4 Mediastinal lymph nodes and bilateral lung cysts -follow-up with pulmonology as outpatient Primary hypertension -Monitor BP closely Dyslipidemia -Atorvastatin 40mg daily Hx of Gout -Continue Allopurinol 300mg daily Hypothyroidism -Order TSH and FT4 -Resume Home levothyroxine 100mcg +125mcg = 225mcg daily Goals of care discussed with the patient and at bedside for 25min, FULL CODE Plan discussed with: Patient, Daughter My Orders Orders - NICOLAS JOSÉ MD Procedure Category Date Status Time Vancomycin 750mg Kit PHA 07/19/24 In Process (Vancomycin Hcl) 11:00 Methylprednisolone PHA 07/19/24 In Process Sod Succ (Solu Medrol 22:00 Chest Two Views XY 07/19/24 Logged Routine 11:49 Complete Blood Count LAB 07/20/24 Verified 04:00 Basic Metabolic Panel LAB 07/20/24 Verified 04:00 Covid19 Antigen [place] LAB 07/19/24 Logged Vancomycin,Trough LAB 07/20/24 Verified 22:00 Vancomycin Per MUSTAPHA 07/20/24 In Process Pharmacy Protoc 22:00 * Wound Consult CONS 07/19/24 Transmitted Date of Service: Jul 19, 2024 Billing Provider: NICOLAS JOSÉ MD Common Visit Codes: [id number] INP/OBS CARE(HIGH) NICOLAS JOSÉ MD Jul 19, 2024 14:15
--- NOTE | 2024-07-19 16:26 | DVH ---
EXAM: XY CHEST TWO VIEWS ROUTINE TECHNIQUE: Two radiographic views of the chest CLINICAL HISTORY: f/u COMPARISON: XY CHEST TWO VIEWS ROUTINE on DOS: 07/16/24 Findings/Impression: Frontal and lateral chest radiographs demonstrate no acute osseous or superficial soft tissue abnorma lities. The trachea is midline. Mild cardiomegaly. Moderate elevation of the right hemidiaphragm. Small left pleural effusion with compressive atelectasis. A superimposed infectious process is not ex cluded. No pneumothorax.
[2024-07-19 16:42] LABS: COVID19 ANTIGEN SOFIA FIA NEGATIVE (NEGATIVE)
[2024-07-19] MEDS: methylPREDNISolone SOD SUCC 125 MG/2 ML VL IV SCH (22:15)
[2024-07-20] VITALS (21 sets, daily range): BP systolic 107–159; BP diastolic 57–81; PULSE 64–99; RESP 16–20; TEMP 97.6–98.6; O2SAT 93–99
[2024-07-20 06:45] LABS: Basophils # (auto) 0 10 ^3/uL (0-0.2); Eosinophils # (auto) 0 10 ^3/uL (0-0.8); Hematocrit 51.9 % (41.0-53.0); Hemoglobin 17.1 g/dL (13.5-17.5); Lymphocytes # (auto) 0.1 10 ^3/uL (0.4-5.4); Lymphocytes % (auto) 1.4 % (10.0-50.0); Mean Corpuscular Hemoglobin 31.7 pg (28.0-32.0); Mean Corpuscular Hgb Conc. 32.8 g/dL (32.0-36.0); Mean Corpuscular Volume 96.5 fL (80.0-100.0); Monocytes # (auto) 0.4 10 ^3/uL (0-1.3); Monocytes % (auto) 5.8 % (0.0-12.0); Neutrophils # (auto) 6.1 10 ^3/uL (1.6-8.6); Neutrophils % (auto) 92.8 % (37.0-80.0); Nucleated Red Blood Cells % 0.1 %; Platelet Count (auto) 191 10^3/uL (140-450); Red Blood Cells 5.38 10^6/uL (4.5-5.90); Red Cell Distribution Width 14.9 % (11.8-14.3); White Blood Cell 6.6 10^3/uL (4.4-10.8)
[2024-07-20 06:53] LABS: Anion Gap 6 (5-15); Carbon Dioxide 30 mmol/L (20-31); Chloride 101 mmol/L (98-107); Sodium 137 mmol/L (136-145)
[2024-07-20 06:54] LABS: Calcium 9.3 mg/dL (8.7-10.4)
[2024-07-20 06:59] LABS: BUN/Creatinine Ratio 22.2 (10.0-20.0); Blood Urea Nitrogen 24 mg/dL (9-23); Glucose 184 mg/dL (74-106)
--- NOTE | 2024-07-20 11:00 | DVHPN2 ---
Subjective Seen and examined at bedside. Patient is now on 4L nasal cannula oxygen. Cont present tx. Reviewed: Care Plan, H&P, Labs, Medications, Previous Orders, Radiology Changes from previous H/P or p: No Changes Eyes: No Pain, No Vision change, No Conjunctivae inflammation, No Eyelid inflammation, No Other, No Redness ENT: No Ear pain, No Ear discharge, No Nose pain, No Nose discharge, No Nose congestion, No Mouth pain, No Mouth swelling, No Throat pain, No Throat swelling, No Other Cardiovascular: No Chest Pain, No Palpitations, No Orthopnea, No Paroxysmal Noc. Dyspnea, No Edema, No Lt Headedness, No Other Respiratory: No Cough, No Dry, No SOB with excertion, No Wheezing, No Hemoptysis, No Pleuritic Pain, No Sputum, No Other Gastrointestinal: No Nausea, No Vomiting, No Abdominal Pain, No Diarrhea, No Constipation, No Melena, No Hematochezia, No Other Genitourinary: No Dysuria, No Frequency, No Incontinence, No Hematuria, No Retention, No Other Musculoskeletal: No other, No neck pain, No shoulder pain, No arm pain, No back pain, No hand pain, No leg pain, No foot pain Skin: No Rash, No Lesions, No Jaundice, No Bruising, No Other Objective Vitals Vital Signs Date Time Temp Pulse Resp B/P (MAP) Pulse Ox O2 Delivery O2 Flow Rate FiO2 07/20/24 10:01 83 18 97 07/20/24 09:56 Nasal Cannula 4.0 07/20/24 09:56 36 07/20/24 08:30 97.6 136/69 (91) 97.6 Intake/Output Intake and Output 07/20/24 07:00 Intake Total 2832 ml Output Total 0 ml Balance 2832 ml Intake Oral 2382 ml IV Total 450 ml Output Urine Total 0 ml # Voids 3 # Bowel Movements 1 Exam Gen: in bed, NAD Cvs: N S1/S2, RRR Resp: Diminished b/l Abd: Morbidly Obese [place] [employer] Mate: AAO x 4 Ext: Mild edema with redness Medications Current Medications Medications Dose Ordered Sig/Nikos Route Start Time Stop Time Status Last Admin Dose Admin Acetaminophen 650 mg Q6HP PRN PO 07/12/24 21:30 Patient Own Medication 1 DAILY PO 07/13/24 10:00 Allopurinol 300 mg DAILY PO 07/13/24 10:00 07/20/24 09:24 300 MG Atorvastatin Calcium 40 mg DAILY PO 07/13/24 10:00 07/20/24 09:25 40 MG Remdesivir 0 ml @ 0 mls/hr PER PHARMACY IV 07/13/24 10:00 07/17/24 10:01 UNV Enoxaparin Sodium 40 mg BID SC 07/13/24 10:00 UNV Enoxaparin Sodium 40 mg BID SC 07/13/24 22:00 07/20/24 09:19 40 MG Vancomycin HCl 0 ml @ 0 mls/hr UD IV 07/13/24 14:30 Guaifenesin/ Dextromethorphan 10 ml Q4HP PRN PO 07/13/24 16:15 07/14/24 09:26 10 ML Famotidine 40 mg DAILY PO 07/14/24 10:00 07/20/24 09:24 40 MG Acetylcysteine 200 mg Q8HR NEB 07/13/24 22:00 07/20/24 07:30 200 MG Furosemide 20 mg BIDD IV 07/14/24 18:00 07/20/24 06:16 20 MG Meropenem 50 ml @ 17 mls/hr Q8HR IV 07/17/24 06:00 07/20/24 06:16 17 MLS/HR Voriconazole 320 mg/Dextrose 282 ml @ 141 mls/hr Q12HR IV 07/18/24 10:00 07/19/24 22:17 141 MLS/HR Albuterol 2.5 mg Q4HR NEB 07/17/24 18:00 07/20/24 09:56 2.5 MG Ipratropium [place] 0.5 mg Q4HR NEB 07/17/24 18:00 07/20/24 09:56 0.5 MG Levothyroxine Sodium 100 mcg DAILY@0600 PO 07/19/24 06:00 07/20/24 06:16 100 MCG Vancomycin HCl 100 ml @ 100 mls/hr Q12H IV 07/19/24 11:00 07/20/24 00:45 100 MLS/HR Methylprednisolone Sodium Succinate 40 mg BID IV 07/19/24 22:00 07/20/24 09:20 40 MG Laboratory Results Laboratory Tests 07/20/24 05:38 Chemistry Test 07/19/24 11:00 07/20/24 05:38 Calcium Level 8.7 mg/dL (8.7-10.4) 9.3 mg/dL (8.7-10.4) Urinalysis Test 07/12/24 20:09 Urine Color Yellow (Yellow) Urine Clarity Clear (Clear) Urine pH 5.5 (5.0-9.0) Urine Specific [place] 1.016 (1.001-1.035) Urine Protein Negative (Negative) Urine Ketones Negative (Negative) Urine Blood Negative /uL (Negative) Urine Nitrite Negative (Negative) Urine Bilirubin Negative (Negative) Urine Urobilinogen Normal mg/dL (Negative) Urine Leukocyte Esterase Negative /uL (Negative) Urine RBC None seen /hpf (0 - 3) Urine WBC 1 /hpf (0 - 3) Urine Squamous Epithelial Cells Few /hpf (<5) Urine Bacteria None seen /hpf (None Seen) Urine Glucose Normal mg/dL (Normal) Microbiology Microbiology Date/Time Source Procedure Growth Status 07/14/24 04:00 Sputum Gram Stain - Final Complete 07/14/24 04:00 Sputum Respiratory Culture - Final Complete 07/13/24 12:33 Nose MRSA Screen - Final Complete Assessment/Plan Assessment/Plan Acute hypoxic respiratory failure likely due to multifocal pneumonia and COVID- 19 COVID-19 pneumonia vs. Aspergillosis R/O Gram-positive/negative bacterial pneumonia -currently on 4L of oxygen through nasal cannula -CT of the chest showed bilateral lower lobe ground-glass opacities consistent with a solid consolidation and multifocal pneumonia. There was also mediastinal lymph nodes which could be reactive or neoplastic. There were bilateral lung cyst as well. 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 -follow-up with pulmonology as outpatient Primary hypertension -Monitor BP closely Dyslipidemia -Atorvastatin 40mg daily Hx of Gout -Continue Allopurinol 300mg daily Hypothyroidism -Order TSH and FT4 -Resume Home levothyroxine 100mcg +125mcg = 225mcg daily Goals of care discussed with the patient and at bedside for 25min, FULL CODE Plan discussed with: Patient, Spouse, Daughter My Orders Orders - NICOLAS JOSÉ MD Procedure Category Date Status Time Methylprednisolone PHA 07/19/24 In Process Sod Succ (Solu Medrol 22:00 Chest Two Views XY 07/19/24 Resulted Routine 11:49 Vancomycin,Trough LAB 07/20/24 Logged 22:00 Vancomycin Per MUSTAPHA 07/20/24 In Process Pharmacy [facility] 22:00 * Wound Consult CONS 07/19/24 Transmitted D/C Isolation ORDERS 07/19/24 Transmitted 16:55 Basic Metabolic Panel LAB 07/21/24 Verified 04:00 Date of Service: Jul 20, 2024 Billing Provider: NICOLAS JOSÉ MD Common Visit Codes: [id number] INP/OBS CARE(HIGH) NICOLAS JOSÉ MD Jul 20, 2024 11:00
[2024-07-21] VITALS (22 sets, daily range): BP systolic 110–136; BP diastolic 64–76; PULSE 65–93; RESP 15–22; TEMP 97.5–98.7; O2SAT 90–98
[2024-07-21] MEDS: LEVOTHYROXINE SODIUM 25 MCG TAB PO SCH (06:05)
[2024-07-21] MEDS: LEVOTHYROXINE SODIUM 100 MCG TAB PO SCH (06:05)
--- NOTE | 2024-07-21 09:50 | DVHPN2 ---
Subjective Seen and examined at bedside. Patient is now on 4L nasal cannula oxygen. No change Reviewed: Care Plan, H&P, Labs, Medications, Previous Orders, Radiology Changes from previous H/P or p: No Changes Eyes: No Pain, No Vision change, No Conjunctivae inflammation, No Eyelid inflammation, No Other, No Redness ENT: No Ear pain, No Ear discharge, No Nose pain, No Nose discharge, No Nose congestion, No Mouth pain, No Mouth swelling, No Throat pain, No Throat swelling, No Other Cardiovascular: No Chest Pain, No Palpitations, No Orthopnea, No Paroxysmal Noc. Dyspnea, No Edema, No Lt Headedness, No Other Respiratory: No Cough, No Dry, No SOB with excertion, No Wheezing, No Hemoptysis, No Pleuritic Pain, No Sputum, No Other Gastrointestinal: No Nausea, No Vomiting, No Abdominal Pain, No Diarrhea, No Constipation, No Melena, No Hematochezia, No Other Genitourinary: No Dysuria, No Frequency, No Incontinence, No Hematuria, No Retention, No Other Musculoskeletal: No other, No neck pain, No shoulder pain, No arm pain, No back pain, No hand pain, No leg pain, No foot pain Skin: No Rash, No Lesions, No Jaundice, No Bruising, No Other Objective Vitals Vital Signs Date Time Temp Pulse Resp B/P (MAP) Pulse Ox O2 Delivery O2 Flow Rate FiO2 07/21/24 09:32 91 16 98 07/21/24 09:22 Nasal Cannula* 4 36 07/21/24 06:10 131/77 07/21/24 05:00 97.5 97.5 Intake/Output Intake and Output 07/21/24 07:00 Intake Total 2432 ml Balance 2432 ml Intake Oral 1600 ml IV Total 832 ml # Voids 4 Exam Gen: in bed, NAD Cvs: N S1/S2, RRR Resp: Diminished b/l Abd: Morbidly Obese 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 Ext: Mild edema with redness Medications Current Medications Medications Dose Ordered Sig/Nikos Route Start Time Stop Time Status Last Admin Dose Admin Acetaminophen 650 mg Q6HP PRN PO 07/12/24 21:30 Patient Own Medication 1 DAILY PO 07/13/24 10:00 Allopurinol 300 mg DAILY PO 07/13/24 10:00 07/20/24 09:24 300 MG Atorvastatin Calcium 40 mg DAILY PO 07/13/24 10:00 07/20/24 09:25 40 MG Remdesivir 0 ml @ 0 mls/hr PER PHARMACY IV 07/13/24 10:00 07/17/24 10:01 UNV Enoxaparin Sodium 40 mg BID SC 07/13/24 10:00 UNV Enoxaparin Sodium 40 mg BID SC 07/13/24 22:00 07/21/24 00:45 40 MG Vancomycin HCl 0 ml @ 0 mls/hr UD IV 07/13/24 14:30 Guaifenesin/ Dextromethorphan 10 ml Q4HP PRN PO 07/13/24 16:15 07/14/24 09:26 10 ML Famotidine 40 mg DAILY PO 07/14/24 10:00 07/20/24 09:24 40 MG Acetylcysteine 200 mg Q8HR NEB 07/13/24 22:00 07/21/24 06:25 200 MG Furosemide 20 mg BIDD IV 07/14/24 18:00 07/21/24 06:10 20 MG Meropenem 50 ml @ 17 mls/hr Q8HR IV 07/17/24 06:00 07/21/24 06:04 17 MLS/HR Voriconazole 320 mg/Dextrose 282 ml @ 141 mls/hr Q12HR IV 07/18/24 10:00 07/20/24 22:29 141 MLS/HR Albuterol 2.5 mg Q4HR NEB 07/17/24 18:00 07/21/24 09:22 2.5 MG Ipratropium [place] 0.5 mg Q4HR NEB 07/17/24 18:00 07/21/24 09:22 0.5 MG Vancomycin HCl 100 ml @ 100 mls/hr Q12H IV 07/19/24 11:00 07/21/24 00:45 100 MLS/HR Methylprednisolone Sodium Succinate 40 mg BID IV 07/19/24 22:00 07/20/24 22:29 40 MG Levothyroxine Sodium 200 mcg DAILY@0600 PO 07/21/24 06:00 07/21/24 06:05 200 MCG Levothyroxine Sodium 25 mcg DAILY@0600 PO 07/21/24 06:00 07/21/24 06:05 25 MCG Laboratory Results Laboratory Tests 07/20/24 05:38 Urinalysis Test 07/12/24 20:09 Urine Color Yellow (Yellow) Urine Clarity Clear (Clear) Urine pH 5.5 (5.0-9.0) Urine Specific [place] 1.016 (1.001-1.035) Urine Protein Negative (Negative) Urine Ketones Negative (Negative) Urine Blood Negative /uL (Negative) Urine Nitrite Negative (Negative) Urine Bilirubin Negative (Negative) Urine Urobilinogen Normal mg/dL (Negative) Urine Leukocyte Esterase Negative /uL (Negative) Urine RBC None seen /hpf (0 - 3) Urine WBC 1 /hpf (0 - 3) Urine Squamous Epithelial Cells Few /hpf (<5) Urine Bacteria None seen /hpf (None Seen) Urine Glucose Normal mg/dL (Normal) Microbiology Microbiology Date/Time Source Procedure Growth Status 07/14/24 04:00 Sputum Gram Stain - Final Complete 07/14/24 04:00 Sputum Respiratory Culture - Final Complete 07/13/24 12:33 Nose MRSA Screen - Final Complete Assessment/Plan Assessment/Plan Acute hypoxic respiratory failure likely due to multifocal pneumonia and COVID- 19 COVID-19 pneumonia vs. Aspergillosis R/O Gram-positive/negative bacterial pneumonia -currently on 4L of oxygen through nasal cannula -CT of the chest showed bilateral lower lobe ground-glass opacities consistent with a solid consolidation and multifocal pneumonia. There was also mediastinal lymph nodes which could be reactive or neoplastic. There were bilateral lung cyst as well. 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 -follow-up with pulmonology as outpatient Primary hypertension -Monitor BP closely Dyslipidemia -Atorvastatin 40mg daily Hx of Gout -Continue Allopurinol 300mg daily Hypothyroidism -Order TSH and FT4 -Resume Home levothyroxine 100mcg +125mcg = 225mcg daily Goals of care discussed with the patient and at bedside for 25min, FULL CODE Plan discussed with: Patient My Orders Orders - NICOLAS JOSÉ MD Procedure Category Date Status Time Basic Metabolic Panel LAB 07/21/24 Logged 04:00 Levothyroxine Tablet PHA 07/21/24 In Process (Synthroid Tablet) 06:00 Cleanse Wound With MUSTAPHA 07/20/24 In Process Wound Clean 18:21 Levothyroxine Tablet PHA 07/21/24 In Process (Synthroid Tablet) 06:00 Complete Blood Count LAB 07/21/24 Logged 04:00 Date of Service: Jul 21, 2024 Billing Provider: NICOLAS JOSÉ MD Common Visit Codes: [id number] INP/OBS CARE(MOD) NICOLAS JOSÉ MD Jul 21, 2024 09:50
[2024-07-21 14:03] LABS: Hemoglobin 17.6 g/dL (13.5-17.5)
[2024-07-21 14:06] LABS: Hematocrit 55.1 % (41.0-53.0); Mean Corpuscular Hemoglobin 31.5 pg (28.0-32.0); Mean Corpuscular Volume 98.4 fL (80.0-100.0); Platelet Count (auto) 152 10^3/uL (140-450); Red Cell Distribution Width 15.6 % (11.8-14.3); White Blood Cell 9.3 10^3/uL (4.4-10.8)
[2024-07-21 14:11] LABS: Chloride 100 mmol/L (98-107)
[2024-07-21 14:12] LABS: Anion Gap 4 (5-15); Calcium 8.9 mg/dL (8.7-10.4); Carbon Dioxide 30 mmol/L (20-31)
[2024-07-21 14:15] LABS: Sodium 134 mmol/L (136-145)
[2024-07-21 14:17] LABS: Glucose 230 mg/dL (74-106)
[2024-07-21 14:18] LABS: BUN/Creatinine Ratio 21.6 (10.0-20.0); Band Neutrophils % (manual) 0; Basophils % (manual) 0 (0.0-2.0); Blast Cells 0; Blood Urea Nitrogen 22 mg/dL (9-23); Eosinophils % (manual) 0 (0-7); Metamyelocytes % 0; Myelocytes % 0; Promyelocytes % 0; Reactive Lymphocytes 0
[2024-07-21 14:56] LABS: Lymphocytes % (manual) 5 (10.0-50.0); Monocytes % (manual) 5 (0-12); Platelet Estimate Adequate
[2024-07-22] VITALS (20 sets, daily range): BP systolic 104–132; BP diastolic 56–69; PULSE 57–104; RESP 16–22; TEMP 97.5–97.9; O2SAT 90–99
[2024-07-22 06:59] LABS: Calcium 9.1 mg/dL (8.7-10.4); Chloride 100 mmol/L (98-107); Potassium 4.5 mmol/L (3.5-5.1); Sodium 136 mmol/L (136-145)
[2024-07-22 07:00] LABS: Anion Gap 5 (5-15)
[2024-07-22 07:06] LABS: BUN/Creatinine Ratio 23.9 (10.0-20.0); Blood Urea Nitrogen 22 mg/dL (9-23)
[2024-07-22 07:12] LABS: Carbon Dioxide 31 mmol/L (20-31); Glucose 182 mg/dL (74-106)
[2024-07-22 08:06] LABS: Anti-Centromere B Antibody <0.2 AI (0.0-0.9); Anti-Jo-1 Antibody <0.2 AI (0.0-0.9); Anti-dsDNA Antibody <1 IU/mL (0-9); Antichromatin Antibody <0.2 AI (0.0-0.9); Antiscleroderma-70 Antibody <0.2 AI (0.0-0.9); RNP Antibody <0.2 AI (0.0-0.9); Sjogren's Anti-SS-A Antibody <0.2 AI (0.0-0.9); Sjogren's Anti-SS-B Antibody <0.2 AI (0.0-0.9); Smith Antibody <0.2 AI (0.0-0.9)
[2024-07-22] MEDS: methylPREDNISolone SOD SUCC 40 MG/ML VL IV ONE (11:30)
--- NOTE | 2024-07-22 16:40 | DVHPN2 ---
Subjective Seen and examined at bedside. Patient is now on 4L nasal cannula oxygen. Encouraged out of bed to ambulate Reviewed: Care Plan, H&P, Labs, Medications, Previous Orders, Radiology Changes from previous H/P or p: No Changes Eyes: No Pain, No Vision change, No Conjunctivae inflammation, No Eyelid inflammation, No Other, No Redness ENT: No Ear pain, No Ear discharge, No Nose pain, No Nose discharge, No Nose congestion, No Mouth pain, No Mouth swelling, No Throat pain, No Throat swelling, No Other Cardiovascular: No Chest Pain, No Palpitations, No Orthopnea, No Paroxysmal Noc. Dyspnea, No Edema, No Lt Headedness, No Other Respiratory: No Cough, No Dry, No SOB with excertion, No Wheezing, No Hemoptysis, No Pleuritic Pain, No Sputum, No Other Gastrointestinal: No Nausea, No Vomiting, No Abdominal Pain, No Diarrhea, No Constipation, No Melena, No Hematochezia, No Other Genitourinary: No Dysuria, No Frequency, No Incontinence, No Hematuria, No Retention, No Other Musculoskeletal: No other, No neck pain, No shoulder pain, No arm pain, No back pain, No hand pain, No leg pain, No foot pain Skin: No Rash, No Lesions, No Jaundice, No Bruising, No Other Objective Vitals Vital Signs Date Time Temp Pulse Resp B/P (MAP) Pulse Ox O2 Delivery O2 Flow Rate FiO2 07/22/24 14:58 91 19 97 07/22/24 14:52 Nasal Cannula 4.0 07/22/24 14:52 36 07/22/24 12:02 97.7 120/59 (79) 97.7 Intake/Output Intake and Output 07/22/24 07:00 Intake Total 5590 ml Balance 5590 ml Intake Oral 4790 ml IV Total 800 ml # Voids 6 # Bowel Movements 1 Exam Gen: in bed, NAD Cvs: N S1/S2, RRR Resp: Diminished b/l Abd: Morbidly Obese 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: Mild edema with redness Medications Current Medications Medications Dose Ordered Sig/Nikos Route Start Time Stop Time Status Last Admin Dose Admin Acetaminophen 650 mg Q6HP PRN PO 07/12/24 21:30 Patient Own Medication 1 DAILY PO 07/13/24 10:00 07/22/24 11:14 1 Allopurinol 300 mg DAILY PO 07/13/24 10:00 07/22/24 11:13 300 MG Atorvastatin Calcium 40 mg DAILY PO 07/13/24 10:00 07/22/24 11:12 40 MG Remdesivir 0 ml @ 0 mls/hr PER PHARMACY IV 07/13/24 10:00 07/17/24 10:01 UNV Enoxaparin Sodium 40 mg BID SC 07/13/24 10:00 UNV Enoxaparin Sodium 40 mg BID SC 07/13/24 22:00 07/22/24 11:13 40 MG Vancomycin HCl 0 ml @ 0 mls/hr UD IV 07/13/24 14:30 Guaifenesin/ Dextromethorphan 10 ml Q4HP PRN PO 07/13/24 16:15 07/21/24 22:26 10 ML Famotidine 40 mg DAILY PO 07/14/24 10:00 07/22/24 11:12 40 MG Acetylcysteine 200 mg Q8HR NEB 07/13/24 22:00 07/22/24 14:52 200 MG Furosemide 20 mg BIDD IV 07/14/24 18:00 07/22/24 05:28 20 MG Meropenem 50 ml @ 17 mls/hr Q8HR IV 07/17/24 06:00 07/22/24 15:20 17 MLS/HR Voriconazole 320 mg/Dextrose 282 ml @ 141 mls/hr Q12HR IV 07/18/24 10:00 07/22/24 12:57 141 MLS/HR Albuterol 2.5 mg Q4HR NEB 07/17/24 18:00 07/22/24 14:52 2.5 MG Ipratropium [place] 0.5 mg Q4HR NEB 07/17/24 18:00 07/22/24 14:52 0.5 MG Vancomycin HCl 100 ml @ 100 mls/hr Q12H IV 07/19/24 11:00 07/22/24 11:13 100 MLS/HR Levothyroxine Sodium 200 mcg DAILY@0600 PO 07/21/24 06:00 07/22/24 05:27 200 MCG Levothyroxine Sodium 25 mcg DAILY@0600 PO 07/21/24 06:00 07/22/24 05:27 25 MCG Methylprednisolone Sodium Succinate 40 mg BID IV 07/22/24 22:00 Laboratory Results Laboratory Tests 07/21/24 13:40 07/22/24 05:29 Chemistry Test 07/22/24 05:29 Calcium Level 9.1 mg/dL (8.7-10.4) Urinalysis Test 07/12/24 20:09 Urine Color Yellow (Yellow) Urine Clarity Clear (Clear) Urine pH 5.5 (5.0-9.0) Urine Specific [place] 1.016 (1.001-1.035) Urine Protein Negative (Negative) Urine Ketones Negative (Negative) Urine Blood Negative /uL (Negative) Urine Nitrite Negative (Negative) Urine Bilirubin Negative (Negative) Urine Urobilinogen Normal mg/dL (Negative) Urine Leukocyte Esterase Negative /uL (Negative) Urine RBC None seen /hpf (0 - 3) Urine WBC 1 /hpf (0 - 3) Urine Squamous Epithelial Cells Few /hpf (<5) Urine Bacteria None seen /hpf (None Seen) Urine Glucose Normal mg/dL (Normal) Microbiology Microbiology Date/Time Source Procedure Growth Status 07/14/24 04:00 Sputum Gram Stain - Final Complete 07/14/24 04:00 Sputum Respiratory Culture - Final Complete 07/13/24 12:33 Nose MRSA Screen - Final Complete Assessment/Plan Assessment/Plan Acute hypoxic respiratory failure likely due to multifocal pneumonia and COVID- 19 COVID-19 pneumonia vs. Aspergillosis R/O Gram-positive/negative bacterial pneumonia -currently on 4L of oxygen through nasal cannula -CT of the chest showed bilateral lower lobe ground-glass opacities consistent with a solid consolidation and multifocal pneumonia. There was also mediastinal lymph nodes which could be reactive or neoplastic. There were bilateral lung cyst as well. 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 -follow-up with pulmonology as outpatient Primary hypertension -Monitor BP closely Dyslipidemia -Atorvastatin 40mg daily Hx of Gout -Continue Allopurinol 300mg daily Hypothyroidism -Order TSH and FT4 -Resume Home levothyroxine 100mcg +125mcg = 225mcg daily Goals of care discussed with the patient and at bedside for 25min, FULL CODE Plan discussed with: Patient My Orders Orders - NICOLAS JOSÉ MD Procedure Category Date Status Time Methylprednisolone PHA 07/22/24 In Process Sod Succ (Solu Medrol 22:00 Date of Service: Jul 22, 2024 Billing Provider: NICOLAS JOSÉ MD Common Visit Codes: [id number] INP/OBS CARE(MOD) NICOLAS JOSÉ MD Jul 22, 2024 16:40
[2024-07-22] MEDS: methylPREDNISolone SOD SUCC 40 MG/ML VL IV SCH (21:33)
[2024-07-22] MEDS: ALBUTEROL SULF 2.5 MG/0.5ML(0.5%) NEB SOLN NEB SCH (23:06)
[2024-07-22] MEDS: IPRATROPIUM BROM 0.5 MG/2.5ML INH SOL NEB SCH (23:07)
[2024-07-23] VITALS (17 sets, daily range): BP systolic 118–135; BP diastolic 52–70; PULSE 65–103; RESP 18–21; TEMP 97.3–98.2; O2SAT 89–98
[2024-07-23] MEDS: VANCOMYCIN 1GM/250ML KIT 250 ML IV SCH (11:08)
--- NOTE | 2024-07-23 12:44 | DVHPN2 ---
Subjective Seen and examined at bedside. Patient is now on 2-3L nasal cannula oxygen. Reviewed: Care Plan, H&P, Labs, Medications, Previous Orders, Radiology Changes from previous H/P or p: No Changes Eyes: No Pain, No Vision change, No Conjunctivae inflammation, No Eyelid inflammation, No Other, No Redness ENT: No Ear pain, No Ear discharge, No Nose pain, No Nose discharge, No Nose congestion, No Mouth pain, No Mouth swelling, No Throat pain, No Throat swelling, No Other Cardiovascular: No Chest Pain, No Palpitations, No Orthopnea, No Paroxysmal Noc. Dyspnea, No Edema, No Lt Headedness, No Other Respiratory: No Cough, No Dry, No SOB with excertion, No Wheezing, No Hemoptysis, No Pleuritic Pain, No Sputum, No Other Gastrointestinal: No Nausea, No Vomiting, No Abdominal Pain, No Diarrhea, No Constipation, No Melena, No Hematochezia, No Other Genitourinary: No Dysuria, No Frequency, No Incontinence, No Hematuria, No Retention, No Other Musculoskeletal: No other, No neck pain, No shoulder pain, No arm pain, No back pain, No hand pain, No leg pain, No foot pain Skin: No Rash, No Lesions, No Jaundice, No Bruising, No Other Objective Vitals Vital Signs Date Time Temp Pulse Resp B/P (MAP) Pulse Ox O2 Delivery O2 Flow Rate FiO2 07/23/24 10:32 65 18 98 07/23/24 10:32 Nasal Cannula 2.0 07/23/24 10:32 28 07/23/24 09:00 97.6 129/60 (83) 97.6 Intake/Output Intake and Output 07/23/24 07:00 Intake Total 2000 ml Output Total 1250 ml Balance 750 ml Intake Oral 1900 ml IV Total 100 ml Output Urine Total 1250 ml # Bowel Movements 1 Exam Gen: in bed, NAD Cvs: N S1/S2, RRR Resp: Diminished b/l Abd: Morbidly Obese 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 edema with redness Medications Current Medications Medications Dose Ordered Sig/Nikos Route Start Time Stop Time Status Last Admin Dose Admin Acetaminophen 650 mg Q6HP PRN PO 07/12/24 21:30 Patient Own Medication 1 DAILY PO 07/13/24 10:00 07/23/24 10:39 1 Allopurinol 300 mg DAILY PO 07/13/24 10:00 07/23/24 10:37 300 MG Atorvastatin Calcium 40 mg DAILY PO 07/13/24 10:00 07/23/24 10:37 40 MG Remdesivir 0 ml @ 0 mls/hr PER PHARMACY IV 07/13/24 10:00 07/17/24 10:01 UNV Enoxaparin Sodium 40 mg BID SC 07/13/24 10:00 UNV Enoxaparin Sodium 40 mg BID SC 07/13/24 22:00 07/23/24 10:38 40 MG Vancomycin HCl 0 ml @ 0 mls/hr UD IV 07/13/24 14:30 Guaifenesin/ Dextromethorphan 10 ml Q4HP PRN PO 07/13/24 16:15 07/21/24 22:26 10 ML Famotidine 40 mg DAILY PO 07/14/24 10:00 07/23/24 10:37 40 MG Acetylcysteine 200 mg Q8HR NEB 07/13/24 22:00 07/23/24 07:26 200 MG Furosemide 20 mg BIDD IV 07/14/24 18:00 07/23/24 05:40 20 MG Meropenem 50 ml @ 17 mls/hr Q8HR IV 07/17/24 06:00 07/23/24 05:40 17 MLS/HR Voriconazole 320 mg/Dextrose 282 ml @ 141 mls/hr Q12HR IV 07/18/24 10:00 07/23/24 11:09 141 MLS/HR Levothyroxine Sodium 200 mcg DAILY@0600 PO 07/21/24 06:00 07/23/24 06:10 200 MCG Levothyroxine Sodium 25 mcg DAILY@0600 PO 07/21/24 06:00 07/23/24 06:11 25 MCG Methylprednisolone Sodium Succinate 40 mg BID IV 07/22/24 22:00 07/23/24 10:36 40 MG Albuterol 2.5 mg Q4HWA NEB 07/22/24 22:00 07/23/24 10:32 2.5 MG Ipratropium [place] 0.5 mg Q4HWA NEB 07/22/24 22:00 07/23/24 10:32 0.5 MG Vancomycin HCl 250 ml @ 250 mls/hr Q12H IV 07/23/24 11:00 07/23/24 11:08 250 MLS/HR Laboratory Results Laboratory Tests 07/21/24 13:40 07/22/24 05:29 Urinalysis Test 07/12/24 20:09 Urine Color Yellow (Yellow) Urine Clarity Clear (Clear) Urine pH 5.5 (5.0-9.0) Urine Specific [place] 1.016 (1.001-1.035) Urine Protein Negative (Negative) Urine Ketones Negative (Negative) Urine Blood Negative /uL (Negative) Urine Nitrite Negative (Negative) Urine Bilirubin Negative (Negative) Urine Urobilinogen Normal mg/dL (Negative) Urine Leukocyte Esterase Negative /uL (Negative) Urine RBC None seen /hpf (0 - 3) Urine WBC 1 /hpf (0 - 3) Urine Squamous Epithelial Cells Few /hpf (<5) Urine Bacteria None seen /hpf (None Seen) Urine Glucose Normal mg/dL (Normal) Microbiology Microbiology Date/Time Source Procedure Growth Status 07/14/24 04:00 Sputum Gram Stain - Final Complete 07/14/24 04:00 Sputum Respiratory Culture - Final Complete 07/13/24 12:33 Nose MRSA Screen - Final Complete Assessment/Plan Assessment/Plan Acute hypoxic respiratory failure likely due to multifocal pneumonia and COVID- 19 COVID-19 pneumonia vs. Aspergillosis R/O Gram-positive/negative bacterial pneumonia -currently on 4L of oxygen through nasal cannula -CT of the chest showed bilateral lower lobe ground-glass opacities consistent with a solid consolidation and multifocal pneumonia. There was also mediastinal lymph nodes which could be reactive or neoplastic. There were bilateral lung cyst as well. 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 -follow-up with pulmonology as outpatient Primary hypertension -Monitor BP closely Dyslipidemia -Atorvastatin 40mg daily Hx of Gout -Continue Allopurinol 300mg daily Hypothyroidism -Order TSH and FT4 -Resume Home levothyroxine 100mcg +125mcg = 225mcg daily Goals of care discussed with the patient and at bedside for 25min, FULL CODE Plan discussed with: Patient My Orders Orders - NICOLAS JOSÉ MD Procedure Category Date Status Time Vancomycin,Trough LAB 07/24/24 Verified 22:00 Creatinine LAB 07/24/24 Verified 04:00 Vancomycin Per MUSTAPHA 07/24/24 In Process Pharmacy Protoc 23:00 Vancomycin 1gm/250ml PHA 07/23/24 In Process Kit 11:00 Date of Service: Jul 23, 2024 Billing Provider: NICOLAS JOSÉ MD Common Visit Codes: [id number] INP/OBS CARE(MOD) NICOLAS JOSÉ MD Jul 23, 2024 12:44
[2024-07-23] MEDS: LACTULOSE 20Gm/30ML SOLN PO ONE (17:12)
[2024-07-24] VITALS (17 sets, daily range): BP systolic 108–133; BP diastolic 58–74; PULSE 52–110; RESP 16–21; TEMP 97.3–98.1; O2SAT 9–98
[2024-07-24] MEDS: LACTULOSE 20Gm/30ML SOLN PO SCH (06:21)
--- NOTE | 2024-07-24 10:18 | DVHPN2 ---
Subjective Seen and examined at bedside. Patient is now on 3L nasal cannula oxygen. DC Solumedrol, start Prednisone PO. Obtain ABG for home O2 Reviewed: Care Plan, H&P, Labs, Medications, Previous Orders, Radiology Changes from previous H/P or p: No Changes Eyes: No Pain, No Vision change, No Conjunctivae inflammation, No Eyelid inflammation, No Other, No Redness ENT: No Ear pain, No Ear discharge, No Nose pain, No Nose discharge, No Nose congestion, No Mouth pain, No Mouth swelling, No Throat pain, No Throat swelling, No Other Cardiovascular: No Chest Pain, No Palpitations, No Orthopnea, No Paroxysmal Noc. Dyspnea, No Edema, No Lt Headedness, No Other Respiratory: No Cough, No Dry, No SOB with excertion, No Wheezing, No Hemoptysis, No Pleuritic Pain, No Sputum, No Other Gastrointestinal: No Nausea, No Vomiting, No Abdominal Pain, No Diarrhea, No Constipation, No Melena, No Hematochezia, No Other Genitourinary: No Dysuria, No Frequency, No Incontinence, No Hematuria, No Retention, No Other Musculoskeletal: No other, No neck pain, No shoulder pain, No arm pain, No back pain, No hand pain, No leg pain, No foot pain Skin: No Rash, No Lesions, No Jaundice, No Bruising, No Other Objective Vitals Vital Signs Date Time Temp Pulse Resp B/P (MAP) Pulse Ox O2 Delivery O2 Flow Rate FiO2 07/24/24 09:00 97.9 83 18 121/72 (88) 94 97.9 07/24/24 06:46 Nasal Cannula 3.0 07/24/24 06:46 32 Intake/Output Intake and Output 07/24/24 06:59 Intake Total 2806 ml Output Total 475 ml Balance 2331 ml Intake Oral 1892 ml IV Total 914 ml Output Urine Total 475 ml # Voids 1 Exam Gen: in bed, NAD Cvs: N S1/S2, RRR Resp: Diminished b/l Abd: Morbidly Obese 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: 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 edema with redness Medications Current Medications Medications Dose Ordered Sig/Nikos Route Start Time Stop Time Status Last Admin Dose Admin Acetaminophen 650 mg Q6HP PRN PO 07/12/24 21:30 Patient Own Medication 1 DAILY PO 07/13/24 10:00 07/23/24 10:39 1 Allopurinol 300 mg DAILY PO 07/13/24 10:00 07/23/24 10:37 300 MG Atorvastatin Calcium 40 mg DAILY PO 07/13/24 10:00 07/23/24 10:37 40 MG Remdesivir 0 ml @ 0 mls/hr PER PHARMACY IV 07/13/24 10:00 07/17/24 10:01 UNV Enoxaparin Sodium 40 mg BID SC 07/13/24 10:00 UNV Enoxaparin Sodium 40 mg BID SC 07/13/24 22:00 07/23/24 23:19 40 MG Vancomycin HCl 0 ml @ 0 mls/hr UD IV 07/13/24 14:30 Guaifenesin/ Dextromethorphan 10 ml Q4HP PRN PO 07/13/24 16:15 07/23/24 17:12 10 ML Famotidine 40 mg DAILY PO 07/14/24 10:00 07/23/24 10:37 40 MG Acetylcysteine 200 mg Q8HR NEB 07/13/24 22:00 07/24/24 06:45 200 MG Furosemide 20 mg BIDD IV 07/14/24 18:00 07/24/24 06:12 20 MG Meropenem 50 ml @ 17 mls/hr Q8HR IV 07/17/24 06:00 07/24/24 06:10 17 MLS/HR Voriconazole 320 mg/Dextrose 282 ml @ 141 mls/hr Q12HR IV 07/18/24 10:00 07/23/24 20:26 141 MLS/HR Levothyroxine Sodium 200 mcg DAILY@0600 PO 07/21/24 06:00 07/24/24 06:10 200 MCG Levothyroxine Sodium 25 mcg DAILY@0600 PO 07/21/24 06:00 07/24/24 06:10 25 MCG Methylprednisolone Sodium Succinate 40 mg BID IV 07/22/24 22:00 07/23/24 23:19 40 MG Albuterol 2.5 mg Q4HWA NEB 07/22/24 22:00 07/24/24 06:44 2.5 MG Ipratropium [place] 0.5 mg Q4HWA NEB 07/22/24 22:00 07/24/24 06:44 0.5 MG Vancomycin HCl 250 ml @ 250 mls/hr Q12H IV 07/23/24 11:00 07/23/24 23:19 250 MLS/HR Lactulose 30 ml QAM PO 07/24/24 07:00 Laboratory Results Laboratory Tests 07/21/24 13:40 07/22/24 05:29 07/24/24 06:43 Urinalysis Test 07/12/24 20:09 Urine Color Yellow (Yellow) Urine Clarity Clear (Clear) Urine pH 5.5 (5.0-9.0) Urine Specific [place] 1.016 (1.001-1.035) Urine Protein Negative (Negative) Urine Ketones Negative (Negative) Urine Blood Negative /uL (Negative) Urine Nitrite Negative (Negative) Urine Bilirubin Negative (Negative) Urine Urobilinogen Normal mg/dL (Negative) Urine Leukocyte Esterase Negative /uL (Negative) Urine RBC None seen /hpf (0 - 3) Urine WBC 1 /hpf (0 - 3) Urine Squamous Epithelial Cells Few /hpf (<5) Urine Bacteria None seen /hpf (None Seen) Urine Glucose Normal mg/dL (Normal) Microbiology Microbiology Date/Time Source Procedure Growth Status 07/14/24 04:00 Sputum Gram Stain - Final Complete 07/14/24 04:00 Sputum Respiratory Culture - Final Complete 07/13/24 12:33 Nose MRSA Screen - Final Complete Assessment/Plan Assessment/Plan Acute hypoxic respiratory failure likely due to multifocal pneumonia and COVID- 19 COVID-19 pneumonia vs. Aspergillosis R/O Gram-positive/negative bacterial pneumonia -currently on 4L of oxygen through nasal cannula -CT of the chest showed bilateral lower lobe ground-glass opacities consistent with a solid consolidation and multifocal pneumonia. There was also mediastinal lymph nodes which could be reactive or neoplastic. There were bilateral lung cyst as well. 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 -follow-up with pulmonology as outpatient Primary hypertension -Monitor BP closely Dyslipidemia -Atorvastatin 40mg daily Hx of Gout -Continue Allopurinol 300mg daily Hypothyroidism -Order TSH and FT4 -Resume Home levothyroxine 100mcg +125mcg = 225mcg daily Goals of care discussed with the patient and at bedside for 25min, FULL CODE Plan discussed with: Patient My Orders Orders - NICOLAS JOSÉ MD Procedure Category Date Status Time Vancomycin,Trough LAB 07/24/24 Logged 22:00 Vancomycin Per MUSTAPHA 07/24/24 In Process Pharmacy Protoc 23:00 Vancomycin 1gm/250ml PHA 07/23/24 In Process Kit 11:00 Lactulose Oral PHA 07/24/24 In Process 07:00 Chest Two Views XY 07/24/24 Logged Routine 09:59 Abg W/ Co-Ox RT 07/24/24 Logged 09:59 * Poly Operator CONS 07/24/24 Transmitted Consult Prednisone Tablet PHA 07/25/24 Verified 06:00 Prednisone Tablet PHA 07/28/24 Verified 06:00 Comprehensive LAB 07/26/24 Verified Metabolic Panel 04:00 Complete Blood Count LAB 07/26/24 Verified 04:00 Thyroid Stimulating LAB 07/24/24 Verified Hormone 10:14 Free T4 (Free LAB 07/24/24 Verified Thyroxine) 10:14 Date of Service: Jul 24, 2024 Billing Provider: NICOLAS JOSÉ MD Common Visit Codes: [id number] INP/OBS CARE(MOD) NICOLAS JOSÉ MD Jul 24, 2024 10:18
--- NOTE | 2024-07-24 10:40 | DVH ---
CHEST RADIOGRAPH Indication: Cyst and PNA Technique: Frontal and lateral view of the chest was obtained Comparison: XY CHEST TWO VIEWS ROUTINE on DOS: 07/19/24, XY CHEST TWO VIEWS ROUTINE on DOS: 07/16/24 FINDINGS: Lines and Tubes: None Lungs: Clear Pleura: No effusion. No pneumothorax. Cardiomediastinal contours: Unremarkable Bones: Unremarkable IMPRESSION: 1. Elevated right hemidiaphragm, unchanged from the prior study 2. Right basilar atelectasis 3. Stable heart size
--- NOTE | 2024-07-24 11:30 | DVH ---
RIGHT Upper Extremity Venous Duplex Clinical History: dvt Comparison: None Technique: Duplex doppler evaluation of the venous system of the RIGHT lower neck and upper extremity including color doppler and spectral/pulsed waveform analysis was performed. Findings: The internal jugular vein demonstrates appropriate compressibility and waveform variability. The subclavian vein is patent on color Doppler evaluation without intraluminal thrombus and demonstra asya waveform variability. The visualized portion of the brachiocephalic vein is patent on color Doppler evaluation without intr aluminal thrombus and demonstrates waveform variability. The axillary vein demonstrates appropriate compressibility and waveform variability. The brachial veins demonstrate appropriate compressibility and patency on Doppler evaluation. The basilic vein demonstrates appropriate compressibility and patency on Doppler evaluation. Occlusive thrombus seen in the right cephalic vein. Impression: 1. Occlusive thrombus in the right cephalic vein.
[2024-07-24 11:41] LABS: Base Excess 3.6 mmol/L (-2.0-3.0)
[2024-07-25] VITALS (18 sets, daily range): BP systolic 104–147; BP diastolic 61–71; PULSE 68–120; RESP 16–22; TEMP 97.4–98.7; O2SAT 90–96
[2024-07-25] MEDS: predniSONE 20 MG TAB PO SCH (06:02)
[2024-07-25 06:06] LABS: Basophils # (auto) 0 10 ^3/uL (0-0.2); Eosinophils # (auto) 0 10 ^3/uL (0-0.8); Hematocrit 53.6 % (41.0-53.0); Hemoglobin 17.2 g/dL (13.5-17.5); Lymphocytes # (auto) 0.4 10 ^3/uL (0.4-5.4); Lymphocytes % (auto) 3.6 % (10.0-50.0); Mean Corpuscular Hemoglobin 31.4 pg (28.0-32.0); Mean Corpuscular Hgb Conc. 32.1 g/dL (32.0-36.0); Mean Corpuscular Volume 97.9 fL (80.0-100.0); Monocytes # (auto) 1.1 10 ^3/uL (0-1.3); Neutrophils # (auto) 8.7 10 ^3/uL (1.6-8.6); Neutrophils % (auto) 85.4 % (37.0-80.0); Red Blood Cells 5.48 10^6/uL (4.5-5.90); Red Cell Distribution Width 15.2 % (11.8-14.3); White Blood Cell 10.2 10^3/uL (4.4-10.8)
[2024-07-25 08:14] LABS: Large Platelets FEW; Platelet Estimate Decreased
[2024-07-25 08:18] LABS: Platelet Count (auto) 135 10^3/uL (140-450)
--- NOTE | 2024-07-25 09:25 | DVHPN2 ---
Subjective Seen and examined at bedside. Patient is now on 3L nasal cannula oxygen. Cont Prednisone. Reviewed: Care Plan, H&P, Labs, Medications, Previous Orders, Radiology Changes from previous H/P or p: No Changes Eyes: No Pain, No Vision change, No Conjunctivae inflammation, No Eyelid inflammation, No Other, No Redness ENT: No Ear pain, No Ear discharge, No Nose pain, No Nose discharge, No Nose congestion, No Mouth pain, No Mouth swelling, No Throat pain, No Throat swelling, No Other Cardiovascular: No Chest Pain, No Palpitations, No Orthopnea, No Paroxysmal Noc. Dyspnea, No Edema, No Lt Headedness, No Other Respiratory: No Cough, No Dry, No SOB with excertion, No Wheezing, No Hemoptysis, No Pleuritic Pain, No Sputum, No Other Gastrointestinal: No Nausea, No Vomiting, No Abdominal Pain, No Diarrhea, No Constipation, No Melena, No Hematochezia, No Other Genitourinary: No Dysuria, No Frequency, No Incontinence, No Hematuria, No Retention, No Other Musculoskeletal: No other, No neck pain, No shoulder pain, No arm pain, No back pain, No hand pain, No leg pain, No foot pain Skin: No Rash, No Lesions, No Jaundice, No Bruising, No Other Objective Vitals Vital Signs Date Time Temp Pulse Resp B/P (MAP) Pulse Ox O2 Delivery O2 Flow Rate FiO2 07/25/24 08:30 98.7 85 18 137/64 (88) 90 98.7 07/25/24 06:32 Nasal Cannula 2.0 07/25/24 06:32 28 Intake/Output Intake and Output 07/25/24 07:00 Intake Total 3994 ml Output Total 500 ml Balance 3494 ml Intake Oral 2730 ml IV Total 1264 ml Output Urine Total 500 ml # Voids 4 Exam Gen: in bed, NAD Cvs: N S1/S2, RRR Resp: Diminished b/l Abd: Morbidly Obese 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[place]: AAO x 4 Ext: Mild edema with redness Medications Current Medications Medications Dose Ordered Sig/Nikos Route Start Time Stop Time Status Last Admin Dose Admin Acetaminophen 650 mg Q6HP PRN PO 07/12/24 21:30 Patient Own Medication 1 DAILY PO 07/13/24 10:00 07/25/24 08:43 1 Allopurinol 300 mg DAILY PO 07/13/24 10:00 07/25/24 08:40 300 MG Atorvastatin Calcium 40 mg DAILY PO 07/13/24 10:00 07/25/24 08:40 40 MG Remdesivir 0 ml @ 0 mls/hr PER PHARMACY IV 07/13/24 10:00 07/17/24 10:01 UNV Enoxaparin Sodium 40 mg BID SC 07/13/24 10:00 UNV Enoxaparin Sodium 40 mg BID SC 07/13/24 22:00 07/25/24 08:41 40 MG Vancomycin HCl 0 ml @ 0 mls/hr UD IV 07/13/24 14:30 Guaifenesin/ Dextromethorphan 10 ml Q4HP PRN PO 07/13/24 16:15 07/23/24 17:12 10 ML Famotidine 40 mg DAILY PO 07/14/24 10:00 07/25/24 08:40 40 MG Acetylcysteine 200 mg Q8HR NEB 07/13/24 22:00 07/25/24 06:32 200 MG Furosemide 20 mg BIDD IV 07/14/24 18:00 07/25/24 05:53 20 MG Meropenem 50 ml @ 17 mls/hr Q8HR IV 07/17/24 06:00 07/25/24 05:52 17 MLS/HR Voriconazole 320 mg/Dextrose 282 ml @ 141 mls/hr Q12HR IV 07/18/24 10:00 07/25/24 08:43 141 MLS/HR Levothyroxine Sodium 200 mcg DAILY@0600 PO 07/21/24 06:00 07/25/24 06:02 200 MCG Levothyroxine Sodium 25 mcg DAILY@0600 PO 07/21/24 06:00 07/25/24 06:02 25 MCG Albuterol 2.5 mg Q4HWA NEB 07/22/24 22:00 07/25/24 06:32 2.5 MG Ipratropium [place] 0.5 mg Q4HWA NEB 07/22/24 22:00 07/25/24 06:32 0.5 MG Vancomycin HCl 250 ml @ 250 mls/hr Q12H IV 07/23/24 11:00 07/24/24 23:24 250 MLS/HR Lactulose 30 ml QAM PO 07/24/24 07:00 07/25/24 06:01 30 ML Prednisone 40 mg DAILY@0600 PO 07/25/24 06:00 07/28/24 05:59 07/25/24 06:02 40 MG Prednisone 20 mg DAILY@0600 PO 07/28/24 06:00 08/04/24 05:59 Laboratory Results Laboratory Tests 07/22/24 05:29 07/25/24 05:37 Urinalysis Test 07/12/24 20:09 Urine Color Yellow (Yellow) Urine Clarity Clear (Clear) Urine pH 5.5 (5.0-9.0) Urine Specific [place] 1.016 (1.001-1.035) Urine Protein Negative (Negative) Urine Ketones Negative (Negative) Urine Blood Negative /uL (Negative) Urine Nitrite Negative (Negative) Urine Bilirubin Negative (Negative) Urine Urobilinogen Normal mg/dL (Negative) Urine Leukocyte Esterase Negative /uL (Negative) Urine RBC None seen /hpf (0 - 3) Urine WBC 1 /hpf (0 - 3) Urine Squamous Epithelial Cells Few /hpf (<5) Urine Bacteria None seen /hpf (None Seen) Urine Glucose Normal mg/dL (Normal) Blood Gas Results Test 07/24/24 11:33 Arterial Blood pH 7.474 (7.350-7.450) FiO2 % 21.0 Microbiology Microbiology Date/Time Source Procedure Growth Status 07/14/24 04:00 Sputum Gram Stain - Final Complete 07/14/24 04:00 Sputum Respiratory Culture - Final Complete 07/13/24 12:33 Nose MRSA Screen - Final Complete Assessment/Plan Assessment/Plan Acute hypoxic respiratory failure likely due to multifocal pneumonia and COVID- 19 COVID-19 pneumonia vs. Aspergillosis R/O Gram-positive/negative bacterial pneumonia -currently on 4L of oxygen through nasal cannula -CT of the chest showed bilateral lower lobe ground-glass opacities consistent with a solid consolidation and multifocal pneumonia. There was also mediastinal lymph nodes which could be reactive or neoplastic. There were bilateral lung cyst as well. 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 -follow-up with pulmonology as outpatient Primary hypertension -Monitor BP closely Dyslipidemia -Atorvastatin 40mg daily Hx of Gout -Continue Allopurinol 300mg daily Hypothyroidism -Order TSH and FT4 -Resume Home levothyroxine 100mcg +125mcg = 225mcg daily Goals of care discussed with the patient and at bedside for 25min, FULL CODE Plan discussed with: Patient My Orders Orders - NICOLAS JOSÉ MD Procedure Category Date Status Time Chest Two Views XY 07/24/24 Resulted Routine 09:59 Abg W/ Co-Ox RT 07/24/24 Logged 09:59 * Plugger Man CONS 07/24/24 Transmitted Consult Prednisone Tablet PHA 07/25/24 In Process 06:00 Prednisone Tablet PHA 07/28/24 In Process 06:00 Comprehensive LAB 07/26/24 Verified Metabolic Panel 04:00 Complete Blood Count LAB 07/26/24 Verified 04:00 Free T4 (Free LAB 07/24/24 In Process Thyroxine) 10:14 Rt Upper Dvt US 07/24/24 Resulted 10:58 Warm Compresses ORDERS 07/24/24 Transmitted 11:51 Date of Service: Jul 25, 2024 Billing Provider: NICOLAS JOSÉ MD Common Visit Codes: [id number] INP/OBS CARE(MOD) NICOLAS JOSÉ MD Jul 25, 2024 09:25
[2024-07-26] VITALS (18 sets, daily range): BP systolic 96–130; BP diastolic 49–81; PULSE 60–101; RESP 16–20; TEMP 97.4–98.1; O2SAT 90–98
[2024-07-26] MEDS: ACETAMINOPHEN 325 MG TAB PO PRN (00:51)
[2024-07-26 06:13] LABS: Basophils # (auto) 0 10 ^3/uL (0-0.2); Basophils % (auto) 0.1 % (0.0-2.0); Eosinophils # (auto) 0.1 10 ^3/uL (0-0.8); Eosinophils % (auto) 0.6 % (0.0-7.0); Hematocrit 48.6 % (41.0-53.0); Hemoglobin 15.7 g/dL (13.5-17.5); Lymphocytes # (auto) 0.7 10 ^3/uL (0.4-5.4); Lymphocytes % (auto) 6.8 % (10.0-50.0); Mean Corpuscular Hemoglobin 31.5 pg (28.0-32.0); Mean Corpuscular Hgb Conc. 32.3 g/dL (32.0-36.0); Mean Corpuscular Volume 97.6 fL (80.0-100.0); Monocytes % (auto) 10.2 % (0.0-12.0); Neutrophils # (auto) 8.1 10 ^3/uL (1.6-8.6); Neutrophils % (auto) 82.3 % (37.0-80.0); Nucleated Red Blood Cells % 0.1 %; Platelet Count (auto) 72 10^3/uL (140-450); Red Blood Cells 4.98 10^6/uL (4.5-5.90); Red Cell Distribution Width 15.3 % (11.8-14.3); White Blood Cell 9.8 10^3/uL (4.4-10.8)
[2024-07-26 06:32] LABS: Alanine Aminotransferase 27 U/L (7-40); Alkaline Phosphatase 56 U/L (46-116); Anion Gap 4 (5-15); Aspartate Aminotransferase 25 U/L (13-40); BUN/Creatinine Ratio 22.8 (10.0-20.0); Blood Urea Nitrogen 21 mg/dL (9-23); Chloride 100 mmol/L (98-107); Glucose 97 mg/dL (74-106); Potassium 3.9 mmol/L (3.5-5.1); Sodium 137 mmol/L (136-145)
[2024-07-26 06:34] LABS: Bilirubin, Total 0.9 mg/dL (0.2-1.0)
[2024-07-26 06:35] LABS: Albumin 2.9 g/dL (3.2-4.8); Calcium 8.6 mg/dL (8.7-10.4); Carbon Dioxide 33 mmol/L (20-31); Total Protein 4.7 g/dL (5.7-8.2)
[2024-07-26 07:46] LABS: Platelet Estimate Decreased; RBC Morphology Normal
--- NOTE | 2024-07-26 10:08 | DVHPN2 ---
Progress Note Date Seen: Jul 26, 2024 Medical Necessity Reason Pt with a Central, PICC or Fol: No Subjective Patient reports: No new complaints Review of Systems: HEENT:Normal, CVS:Normal, RESPIRATORY:Normal, GI:Normal, :Normal, MSK:Normal, NEURO:Normal Objective vital signs Vital Sign Date Time Temp Pulse Resp B/P (MAP) Pulse Ox O2 Delivery O2 Flow Rate FiO2 07/26/24 07:21 86 18 98 07/26/24 07:13 Nasal Cannula* 3 32 07/26/24 05:52 96/49 07/26/24 05:00 98.1 98.1 Total Intake and Output 07/25/24 07/25/24 07/26/24 15:00 23:00 07:00 Intake Total 500 ml 720 ml 675 ml Output Total 800 ml 1000 ml Balance 500 ml -80 ml -325 ml medications Current Medications Medications Dose Ordered Sig/Nikos Route Start Time Stop Time Status Last Admin Dose Admin Acetaminophen 650 mg Q6HP PRN PO 07/12/24 21:30 07/26/24 00:51 650 MG Patient Own Medication 1 DAILY PO 07/13/24 10:00 07/25/24 08:43 1 Allopurinol 300 mg DAILY PO 07/13/24 10:00 07/25/24 08:40 300 MG Atorvastatin Calcium 40 mg DAILY PO 07/13/24 10:00 07/25/24 08:40 40 MG Remdesivir 0 ml @ 0 mls/hr PER PHARMACY IV 07/13/24 10:00 07/17/24 10:01 UNV Enoxaparin Sodium 40 mg BID SC 07/13/24 10:00 UNV Enoxaparin Sodium 40 mg BID SC 07/13/24 22:00 07/25/24 21:38 40 MG Vancomycin HCl 0 ml @ 0 mls/hr UD IV 07/13/24 14:30 Guaifenesin/ Dextromethorphan 10 ml Q4HP PRN PO 07/13/24 16:15 07/23/24 17:12 10 ML Famotidine 40 mg DAILY PO 07/14/24 10:00 07/25/24 08:40 40 MG Acetylcysteine 200 mg Q8HR NEB 07/13/24 22:00 07/26/24 07:14 200 MG Furosemide 20 mg BIDD IV 07/14/24 18:00 07/25/24 17:53 20 MG Meropenem 50 ml @ 17 mls/hr Q8HR IV 07/17/24 06:00 07/26/24 05:53 17 MLS/HR Voriconazole 320 mg/Dextrose 282 ml @ 141 mls/hr Q12HR IV 07/18/24 10:00 07/25/24 21:39 141 MLS/HR Levothyroxine Sodium 200 mcg DAILY@0600 PO 07/21/24 06:00 07/26/24 05:53 200 MCG Levothyroxine Sodium 25 mcg DAILY@0600 PO 07/21/24 06:00 07/26/24 05:53 25 MCG Albuterol 2.5 mg Q4HWA NEB 07/22/24 22:00 07/26/24 07:13 2.5 MG Ipratropium [place] 0.5 mg Q4HWA NEB 07/22/24 22:00 07/26/24 07:13 0.5 MG Vancomycin HCl 250 ml @ 250 mls/hr Q12H IV 07/23/24 11:00 07/25/24 23:51 250 MLS/HR Lactulose 30 ml QAM PO 07/24/24 07:00 07/25/24 06:01 30 ML Prednisone 40 mg DAILY@0600 PO 07/25/24 06:00 07/28/24 05:59 07/26/24 05:53 40 MG Prednisone 20 mg DAILY@0600 PO 07/28/24 06:00 08/04/24 05:59 Examination: GENERAL:Normal, HEENT:Normal, NECK:Normal, LUNGS:Normal, LUNGS:Abnormal (ON OXYGEN), CVS:Normal, ABDOMEN:Normal, MSK:Normal, MSK:Abnormal (edema++), SKIN:Normal, NEURO:Normal, :Normal laboratory and microbiology Laboratory Tests 07/26/24 05:23 Test 07/26/24 05:23 Range/Units Serum Glucose 97 74-106 mg/dL Microbiology Date/Time Source Procedure Growth Status 07/14/24 04:00 Sputum Gram Stain - Final Complete 07/14/24 04:00 Sputum Respiratory Culture - Final Complete 07/13/24 12:33 Nose MRSA Screen - Final Complete Problem List/Assessment/Plan Problem List/Assessment/Plan #1 acute resp failure: cont oxygen #2 bilateral pneumonia- gram positive/neg/fungal: cont meds #3 acute on chronic diastolic heart failure: bumex iv #4 morbid obesity #5 hypothyroidism: cont meds #6 gout #7 covid 19 pneumonia advance care planning- full code- time spent 19 mins Plan discussed with: Patient Dietary Evaluation Review Comments: Pt is on lipitor, LDL<65, Ok to be on Regular diet, Encourage Protein, Discourage CHO and sweets. Monitor Intakew to meet 75% of his needs, Expected Outcomes/Goals: Gradual weight loss and less breathing problems, Date of Service: Jul 26, 2024 Billing Provider: DONAL BONILLA MD Common Visit Codes: [id number] INP/OBS CARE(HIGH) Secondary Visit Codes: [id number] CARE PLAN 30 MINUTES DONAL BONILLA MD Jul 26, 2024 10:08
[2024-07-26] MEDS: ENOXAPARIN SOD 40 MG/0.4 ML SYRINGE SC SCH (10:16)
[2024-07-26] MEDS: BUMETANIDE 1mg/4ml VIAL (0.25mg/ml) IV ONE (11:24)
[2024-07-26] MEDS: BUMETANIDE 1mg/4ml VIAL (0.25mg/ml) IV SCH (18:22)
[2024-07-26] MEDS: VORICONAZOLE 50 MG TAB PO SCH (22:00)
[2024-07-27] VITALS (20 sets, daily range): BP systolic 98–139; BP diastolic 49–71; PULSE 59–98; RESP 16–20; TEMP 97.4–98.9; O2SAT 91–99
--- NOTE | 2024-07-27 08:22 | DVH ---
CHEST RADIOGRAPH Indication: PNEUMONIA Technique: Single frontal view of the chest was obtained Comparison: XY CHEST PORTABLE on DOS: 07/13/24 FINDINGS: Lines and Tubes: None Lungs: No focal consolidation. Pleura: No effusion. No pneumothorax. Cardiomediastinal contours: Unremarkable Bones: No acute osseous abnormality. IMPRESSION: No acute cardiopulmonary disease.
[2024-07-27 12:48] LABS: Anion Gap 0 (5-15); Chloride 100 mmol/L (98-107); Potassium 3.8 mmol/L (3.5-5.1); Sodium 137 mmol/L (136-145)
[2024-07-27 12:50] LABS: Basophils # (auto) 0 10 ^3/uL (0-0.2); Basophils % (auto) 0.1 % (0.0-2.0); Eosinophils # (auto) 0.1 10 ^3/uL (0-0.8); Eosinophils % (auto) 1.3 % (0.0-7.0); Hematocrit 48.7 % (41.0-53.0); Hemoglobin 15.8 g/dL (13.5-17.5); Lymphocytes # (auto) 0.6 10 ^3/uL (0.4-5.4); Lymphocytes % (auto) 6.9 % (10.0-50.0); Mean Corpuscular Hemoglobin 31.7 pg (28.0-32.0); Mean Corpuscular Hgb Conc. 32.5 g/dL (32.0-36.0); Mean Corpuscular Volume 97.6 fL (80.0-100.0); Monocytes # (auto) 0.7 10 ^3/uL (0-1.3); Monocytes % (auto) 8.6 % (0.0-12.0); Neutrophils % (auto) 83.1 % (37.0-80.0); Nucleated Red Blood Cells % 0.1 %; Red Blood Cells 4.99 10^6/uL (4.5-5.90); Red Cell Distribution Width 15.2 % (11.8-14.3); White Blood Cell 8.4 10^3/uL (4.4-10.8)
[2024-07-27 12:53] LABS: Platelet Count (auto) 64 10^3/uL (140-450)
[2024-07-27 12:54] LABS: BUN/Creatinine Ratio 23.1 (10.0-20.0); Blood Urea Nitrogen 18 mg/dL (9-23); Glucose 102 mg/dL (74-106)
[2024-07-27 12:57] LABS: Calcium 8.4 mg/dL (8.7-10.4); Carbon Dioxide 37 mmol/L (20-31)
--- NOTE | 2024-07-27 14:56 | DVHPN2 ---
Subjective Seen and examined at bedside. Patient is now on 3L nasal cannula oxygen. Reviewed sputum cultures. DC all Abx start Bactrim. DC to SNF. Monitor platelets Reviewed: Care Plan, H&P, Labs, Medications, Previous Orders, Radiology Changes from previous H/P or p: No Changes Eyes: No Pain, No Vision change, No Conjunctivae inflammation, No Eyelid inflammation, No Other, No Redness ENT: No Ear pain, No Ear discharge, No Nose pain, No Nose discharge, No Nose congestion, No Mouth pain, No Mouth swelling, No Throat pain, No Throat swelling, No Other Cardiovascular: No Chest Pain, No Palpitations, No Orthopnea, No Paroxysmal Noc. Dyspnea, No Edema, No Lt Headedness, No Other Respiratory: No Cough, No Dry, No SOB with excertion, No Wheezing, No Hemoptysis, No Pleuritic Pain, No Sputum, No Other Gastrointestinal: No Nausea, No Vomiting, No Abdominal Pain, No Diarrhea, No Constipation, No Melena, No Hematochezia, No Other Genitourinary: No Dysuria, No Frequency, No Incontinence, No Hematuria, No Retention, No Other Musculoskeletal: No other, No neck pain, No shoulder pain, No arm pain, No back pain, No hand pain, No leg pain, No foot pain Skin: No Rash, No Lesions, No Jaundice, No Bruising, No Other Objective Vitals Vital Signs Date Time Temp Pulse Resp B/P (MAP) Pulse Ox O2 Delivery O2 Flow Rate FiO2 07/27/24 11:37 80 16 99 07/27/24 11:31 Nasal Cannula* 3 32 07/27/24 09:00 97.8 114/65 (81) 97.8 Intake/Output Intake and Output 07/27/24 07:00 Intake Total 1550 ml Output Total 700 ml Balance 850 ml Intake Oral 950 ml IV Total 600 ml Output Urine Total 700 ml # Voids 3 # Bowel Movements 4 Exam Gen: in bed, NAD Cvs: N S1/S2, RRR Resp: Diminished b/l Abd: Morbidly Obese 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 Ext: Mild edema with redness Medications Current Medications Medications Dose Ordered Sig/Nikos Route Start Time Stop Time Status Last Admin Dose Admin Acetaminophen 650 mg Q6HP PRN PO 07/12/24 21:30 07/26/24 19:52 650 MG Patient Own Medication 1 DAILY PO 07/13/24 10:00 07/27/24 09:49 1 Allopurinol 300 mg DAILY PO 07/13/24 10:00 07/27/24 09:47 300 MG Atorvastatin Calcium 40 mg DAILY PO 07/13/24 10:00 07/27/24 09:48 40 MG Remdesivir 0 ml @ 0 mls/hr PER PHARMACY IV 07/13/24 10:00 07/17/24 10:01 UNV Enoxaparin Sodium 40 mg BID SC 07/13/24 10:00 UNV Vancomycin HCl 0 ml @ 0 mls/hr UD IV 07/13/24 14:30 Guaifenesin/ Dextromethorphan 10 ml Q4HP PRN PO 07/13/24 16:15 07/23/24 17:12 10 ML Famotidine 40 mg DAILY PO 07/14/24 10:00 07/27/24 09:48 40 MG Acetylcysteine 200 mg Q8HR NEB 07/13/24 22:00 07/27/24 06:39 200 MG Meropenem 50 ml @ 17 mls/hr Q8HR IV 07/17/24 06:00 07/27/24 14:53 17 MLS/HR Levothyroxine Sodium 200 mcg DAILY@0600 PO 07/21/24 06:00 07/27/24 05:55 200 MCG Levothyroxine Sodium 25 mcg DAILY@0600 PO 07/21/24 06:00 07/27/24 05:54 25 MCG Albuterol 2.5 mg Q4HWA NEB 07/22/24 22:00 07/27/24 11:31 2.5 MG Ipratropium [place] 0.5 mg Q4HWA NEB 07/22/24 22:00 07/27/24 11:31 0.5 MG Vancomycin HCl 250 ml @ 250 mls/hr Q12H IV 07/23/24 11:00 07/27/24 12:03 250 MLS/HR Lactulose 30 ml QAM PO 07/24/24 07:00 07/25/24 06:01 30 ML Enoxaparin Sodium 40 mg DAILY SC 07/26/24 10:16 Bumetanide 1 mg BIDD IV 07/26/24 18:00 07/27/24 05:53 1 MG Voriconazole 300 mg BID PO 07/26/24 22:00 Acetaminophen/ Hydrocodone Bitart 1 tab Q8HPRN PRN PO 07/26/24 20:30 Laboratory Results Laboratory Tests 07/27/24 12:20 Chemistry Test 07/27/24 12:20 Calcium Level 8.4 mg/dL (8.7-10.4) L Urinalysis Test 07/12/24 20:09 Urine Color Yellow (Yellow) Urine Clarity Clear (Clear) Urine pH 5.5 (5.0-9.0) Urine Specific [place] 1.016 (1.001-1.035) Urine Protein Negative (Negative) Urine Ketones Negative (Negative) Urine Blood Negative /uL (Negative) Urine Nitrite Negative (Negative) Urine Bilirubin Negative (Negative) Urine Urobilinogen Normal mg/dL (Negative) Urine Leukocyte Esterase Negative /uL (Negative) Urine RBC None seen /hpf (0 - 3) Urine WBC 1 /hpf (0 - 3) Urine Squamous Epithelial Cells Few /hpf (<5) Urine Bacteria None seen /hpf (None Seen) Urine Glucose Normal mg/dL (Normal) Microbiology Microbiology Date/Time Source Procedure Growth Status 07/25/24 13:51 Sputum Gram Stain - Final Resulted 07/25/24 13:51 Respiratory Culture - Preliminary Stenotrophomonas maltophilia Resulted 07/13/24 12:33 Nose MRSA Screen - Final Complete Assessment/Plan Assessment/Plan Acute hypoxic respiratory failure likely due to multifocal pneumonia and COVID- 19 Thrombocytopenia- MOnitor, no bleeding COVID-19 pneumonia R/O Gram-positive/negative bacterial pneumonia- Stenotrophomonas maltophilia -currently on 3L of oxygen through nasal cannula -CT of the chest showed bilateral lower lobe ground-glass opacities consistent with a solid consolidation and multifocal pneumonia. There was also mediastinal lymph nodes which could be reactive or neoplastic. There were bilateral lung cyst as well. -start respiratory therapy with albuterol and ipratropium med nebs -ordered sputum cultures -influenza test came back negative -monitor saturation closely Possible Cytokine Storm Syndrome 3-4 Mediastinal lymph nodes and bilateral lung cysts -follow-up with pulmonology as outpatient Primary hypertension -Monitor BP closely Dyslipidemia -Atorvastatin 40mg daily Hx of Gout -Continue Allopurinol 300mg daily Hypothyroidism -Order TSH and FT4 -Resume Home levothyroxine 100mcg +125mcg = 225mcg daily Goals of care discussed with the patient and at bedside for 25min, FULL CODE Plan discussed with: Patient, Spouse My Orders Orders - NICOLAS JOSÉ MD Procedure Category Date Status Time Sulfamethoxazole PHA 07/27/24 Verified W/Trimeth Tab (Bactrim 22:00 Bilat Lower Dvt US 07/27/24 Verified 14:51 Basic Metabolic Panel LAB 07/28/24 Verified 04:00 Complete Blood Count LAB 07/28/24 Verified 04:00 Date of Service: Jul 27, 2024 Billing Provider: NICOLAS JOSÉ MD Common Visit Codes: [id number] INP/OBS CARE(HIGH) NICOLAS JOSÉ MD Jul 27, 2024 14:56
--- NOTE | 2024-07-27 16:16 | DVH ---
BILATERAL LOWER EXTREMITY VENOUS DOPPLER CLINICAL HISTORY: Swelling Technique: Duplex Doppler evaluation of the deep venous systems of both lower extremities from the co mmon femoral veins to the popliteal veins including color Doppler and spectral/pulsed waveform analys is was performed. COMPARISON: US BILAT LOWER DVT on DOS: 07/13/24 FINDINGS: The right and left common femoral, superficial femoral, popliteal, posterior tibial veins appear pa tent with normal augmentation, phasicity, compressibility and color-flow. There is soft tissue edema seen throughout. IMPRESSION: 1. There is no sonographic evidence for DVT in the lower extremities. HS:Y
[2024-07-27] MEDS: SULFAMETHOX W/TRIMETH(800/160MG) DS TAB PO SCH (21:33)
[2024-07-27] MEDS: HYDROcodone-ACET 5/325MG TAB PO PRN (21:33)
[2024-07-28] VITALS (13 sets, daily range): BP systolic 91–151; BP diastolic 44–87; PULSE 87–110; RESP 15–20; TEMP 36.7; O2SAT 92–98
[2024-07-28 05:43] LABS: Basophils # (auto) 0 10 ^3/uL (0-0.2); Eosinophils # (auto) 0.2 10 ^3/uL (0-0.8); Hemoglobin 16.4 g/dL (13.5-17.5); Lymphocytes # (auto) 0.7 10 ^3/uL (0.4-5.4); Mean Corpuscular Volume 97.9 fL (80.0-100.0); Red Cell Distribution Width 15.3 % (11.8-14.3)
[2024-07-28 05:46] LABS: Basophils % (auto) 0.2 % (0.0-2.0); Eosinophils % (auto) 2.6 % (0.0-7.0); Hematocrit 50.2 % (41.0-53.0); Lymphocytes % (auto) 8.6 % (10.0-50.0); Mean Corpuscular Hgb Conc. 32.7 g/dL (32.0-36.0); Neutrophils # (auto) 6.1 10 ^3/uL (1.6-8.6); Neutrophils % (auto) 76.6 % (37.0-80.0); Platelet Count (auto) 67 10^3/uL (140-450); Red Blood Cells 5.13 10^6/uL (4.5-5.90)
[2024-07-28 05:50] LABS: Chloride 100 mmol/L (98-107); Potassium 4.6 mmol/L (3.5-5.1); Sodium 138 mmol/L (136-145)
[2024-07-28 05:51] LABS: Anion Gap 2 (5-15)
[2024-07-28 05:56] LABS: Blood Urea Nitrogen 18 mg/dL (9-23); Glucose 95 mg/dL (74-106)
[2024-07-28] MEDS ORDERED: predniSONE 20 MG TAB PO SCH (06:00)
[2024-07-28 06:03] LABS: Calcium 8.7 mg/dL (8.7-10.4); Carbon Dioxide 36 mmol/L (20-31)
--- NOTE | 2024-07-28 10:59 | DVHDS2 ---
Discharge Summary Date of Admission Jul 12, 2024 at 21:27 Date of Discharge: Jul 28, 2024 Admitting Diagnosis Acute hypoxic respiratory failure Labs/Diagnostic Data: Laboratory Results Test 07/28/24 05:17 07/27/24 10:04 07/26/24 05:23 07/25/24 05:37 White Blood Count 8.0 10^3/uL (4.4-10.8) Red Blood Count 5.13 10^6/uL (4.5-5.90) Hemoglobin 16.4 g/dL (13.5-17.5) Hematocrit 50.2 % (41.0-53.0) Mean Corpuscular Volume 97.9 fL (80.0-100.0) Mean Corpuscular Hemoglobin 32.0 pg (28.0-32.0) Mean Corpuscular Hemoglobin Concent 32.7 g/dL (32.0-36.0) Red Cell Distribution Width 15.3 % (11.8-14.3) Platelet Count 67 10^3/uL (140-450) Mean Platelet Volume 10.2 fL (6.9-10.8) Neutrophils (%) (Auto) 76.6 % (37.0-80.0) Lymphocytes (%) (Auto) 8.6 % (10.0-50.0) Monocytes (%) (Auto) 12.0 % (0.0-12.0) Eosinophils (%) (Auto) 2.6 % (0.0-7.0) Basophils (%) (Auto) 0.2 % (0.0-2.0) Neutrophils # (Auto) 6.1 10 ^3/uL (1.6-8.6) Lymphocytes # (Auto) 0.7 10 ^3/uL (0.4-5.4) Monocytes # (Auto) 1.0 10 ^3/uL (0-1.3) Eosinophils # (Auto) 0.2 10 ^3/uL (0-0.8) Basophils # (Auto) 0 10 ^3/uL (0-0.2) Nucleated Red Blood Cells 0.0 % Sodium Level 138 mmol/L (136-145) Potassium Level 4.6 mmol/L (3.5-5.1) Chloride Level 100 mmol/L (98-107) Carbon Dioxide Level 36 mmol/L (20-31) Anion Gap 2 (5-15) Blood Urea Nitrogen 18 mg/dL (9-23) Creatinine 0.75 mg/dL (0.700-1.30) Glomerular Filtration Rate Calc 96 mL/min (>90) BUN/Creatinine Ratio 24.0 (10.0-20.0) Serum Glucose 95 mg/dL (74-106) Calcium Level 8.7 mg/dL (8.7-10.4) Vancomycin Level Trough 14.0 ug/mL (5-10) Platelet Estimate Decreased Red Blood Cell Morphology Normal Total Bilirubin 0.9 mg/dL (0.2-1.0) Aspartate Amino Transferase (AST) 25 U/L (13-40) Alanine Aminotransferase (ALT) 27 U/L (7-40) Alkaline Phosphatase 56 U/L (46-116) Total Protein 4.7 g/dL (5.7-8.2) Albumin 2.9 g/dL (3.2-4.8) Large Platelets Few Test 07/24/24 11:33 07/24/24 06:43 07/21/24 13:40 07/19/24 15:15 Blood Gas Specimen Type Arterial Blood Gas Sample Site Left radial Blood Gas Patient Temperature 37.0 Arterial Blood Date Drawn [id number] Arterial Blood pH 7.474 (7.350-7.450) Arterial Blood Partial Pressure CO2 37.9 mmHg (35.0-48.0) Arterial Blood Partial Pressure O2 52.4 mmHg (83.0-108.0) Arterial Blood HCO3 27.2 mmol/L (21.0-28.0) Arterial Blood Oxygen Saturation 87.6 % (94.0-98.0) Arterial Blood Base Excess 3.6 mmol/L (-2.0-3.0) Arterial Blood Oxyhemoglobin 86.3 % (94.0-98.0) Arterial Blood Carboxyhemoglobin 1.0 % (0.5-1.5) Arterial Blood Methemoglobin 0.5 % (0.0-1.5) Tan Test Yes Blood Gas Total Hemoglobin 17.40 g/dL (13.5-17.5) Blood Gas Modality Room air FiO2 % 21.0 Blood Gas Critical Value Read Back Yes Blood Gas Notified Whom Dr. downing Blood Gas Notified Time [id number] Blood Gas Notified By herb Call rt. Thyroid Stimulating Hormone (TSH) 0.84 uIU/mL (0.55-4.78) Free Thyroxine (T4) Calculated 1.40 ng/dL (0.89-1.76) Differential Total Cells Counted 100.0 (100) Neutrophils % (Manual) 90 (37.0-80.0) Band Neutrophils % (Manual) 0 Lymphocytes % (Manual) 5 (10.0-50.0) Monocytes % (Manual) 5 (0-12) Eosinophils % (Manual) 0 (0-7) Basophils % (Manual) 0 (0.0-2.0) Metamyelocytes % (manual) 0 Myelocytes % (Manual) 0 Promyelocytes % (Manual) 0 Blast Cells % (Manual) 0 Reactive Lymphocytes 0 SARS-CoV-2 Antigen (Rapid) Negative (NEGATIVE) Test 07/17/24 16:01 07/17/24 04:48 07/16/24 07:16 07/15/24 06:57 Random Vancomycin Level 18.4 ug/mL (5-10) Magnesium Level 2.6 mg/dL (1.6-2.6) Rheumatoid Factor <10.0 IU/mL (<14.0) Anti-Nuclear Antibody Comment Comment (.) SHANKAR-1 Antibody <0.2 AI (0.0-0.9) SS-A/Ro Antibody <0.2 AI (0.0-0.9) SS-B/La Antibody <0.2 AI (0.0-0.9) Sm Antibody <0.2 AI (0.0-0.9) FIELD CONTACT PERSON Antibody <0.2 AI (0.0-0.9) Scl-70 (Scleroderma) Antibody <0.2 AI (0.0-0.9) Anti-Double Strand DNA Antibody <1 IU/mL (0-9) Chromatin Antibody <0.2 AI (0.0-0.9) Centromere B Antibody <0.2 AI (0.0-0.9) B-Type Natriuretic Peptide 104.13 pg/mL (0-100) Test 07/14/24 17:01 07/13/24 19:03 07/13/24 18:25 07/13/24 14:50 Miscellaneous Referred Test (Refrg) [facility] Lactic Acid Level 1.2 mmol/L (0.4-2.0) Blood Gas Liter Flow 9.00 Prothrombin Time 10.8 sec (9.3-11.8) Prothrombin Time INR 1.02 (0.9-1.15) Activated Partial Thromboplast Time 32.9 SEC (24.5-34.5) D-Dimer, Quantitative 1.47 mg/L FEU (0.0-0.49) Troponin I High Sensitivity 10 ng/L (</=54) Test 07/12/24 20:14 07/12/24 20:09 07/12/24 19:34 07/12/24 18:40 Influenza Type A Antigen Negative (Negative) Influenza Type B Antigen Negative (Negative) Urine Color Yellow (Yellow) Urine Clarity Clear (Clear) Urine pH 5.5 (5.0-9.0) Urine Specific [place] 1.016 (1.001-1.035) Urine Protein Negative (Negative) Urine Ketones Negative (Negative) Urine Blood Negative /uL (Negative) Urine Nitrite Negative (Negative) Urine Bilirubin Negative (Negative) Urine Urobilinogen Normal mg/dL (Negative) Urine Leukocyte Esterase Negative /uL (Negative) Urine RBC None seen /hpf (0 - 3) Urine WBC 1 /hpf (0 - 3) Urine Squamous Epithelial Cells Few /hpf (<5) Urine Bacteria None seen /hpf (None Seen) Urine Glucose Normal mg/dL (Normal) Triglycerides Level 66 mg/dL (< 150) Cholesterol Level mg/dL (< 200) LDL Cholesterol 65 mg/dL (< 100) HDL Cholesterol 50 mg/dL (40-59) Hemoglobin A1c 6.1 % A1C (<5.7) Other Laboratory Tests 07/28/24 05:17 Brief Hx & Hospital Course: This is a 73-year-old male with past medical history of hypertension, dyslipidemia, hypothyroidism, gout, skin cancer (unspecified), who presented to the ED due to acute shortness of breath associated with productive cough and sputum production. The patient states that he went to [place] on June 15 for evaluation until , on his way back home, he is starting to have worsening of shortness of breath associated with cough and whitish sputum production. The patient denied fever, chills, chest pain, palpitations or any other symptoms. Upon admission initial labs CBC, CMP was grossly unremarkable, troponins were negative and BNP was normal range. The patient tested positive for COVID-19 and negative for flu. The patient was on 5 L of oxygen through nasal cannula saturating 87%. CT scan of the chest showed bilateral lower lobe ground-glass opacities compatible with solid consolidations, multifocal pneumonia. There were also some lung cysts bilateral mediastinal lymph nodes be reactive or neoplastic. My examination, patient had bilateral expiratory wheezes and bilateral crackles on lung bases. Patient was seen in Pulm consult. Initially patient was treated with Voriconazole, Vancomycin, and Merrem. Sputum cultures are now growing Stenotrophomonas maltophilia, patient will be discharged to SNF on 3L oxygen on Bactrim. Operations or Procedures Procedure: CT CHEST WITHOUT CONTRAST Study Date and Requested Time: 07/12/2024 07:01 PM History: sob Comparison: None Dose: CTDI: 31.36 mGy DLP: 1367.71 mGycm Technique: Multiplanar images obtained through the chest without contrast Findings: The thyroid gland is not definitely visualized. Borderline cardiomegaly. No evidence of aortic aneurysm. Mild dilatation of the pulmonary trunk up to 36 mm. Heavy atherosclerotic calcification of the coronary arteries. Mediastinal lymphadenopathy measuring up to 1.1 cm. Bilateral lower lobe ground-glass and solid consolidations with minimal involvement of the right upper lobe. No pneumothorax. Multiple cysts of varying sizes are noted throughout the bilateral lungs. Trace right-sided pleural effusion. Colonic diverticulosis without diverticulitis. Otherwise, partial view of the upper abdomen is otherwise unremarkable. The soft tissues are unremarkable. No destructive osseous lesions are noted. Varicose veins are noted over the ventral upper chest subcutaneous fat. Impression: Multiple bilateral lung cysts of various sizes with bilateral lower lobe ground- glass and solid consolidations and minimal involvement of the right upper lobe . Correlate for multifocal pneumonia. Given cystic changes lymphoid interstitial pneumonia lymph and angio leiomyomatosis should be within the differential multiple etiologies not excluded. Recommend clinical correlation. Trace right-sided pleural effusion. Mediastinal lymphadenopathy which may be reactive or neoplastic. Dilatation of the pulmonary trunk up to 36 mm. Correlate for pulmonary arterial hypertension. EXAM: LIMITED Two-dimensional and M-mode echocardiogram with Doppler and color Doppler. Blood Pressure: 124/60 mmHg INDICATION r/o strucural abn RISK FACTORS Obesity: Height: 6'1, Weight: 390 DIMENSIONS LVDd 4.6 (3.8-5.7cm) LA (2D) (1.9-4.0cm) Aortic Root 4.0 (2.0- 3.7cm) LVDs 2.9 (2.5-4.0cm) LA (MM) (1.9-4.0cm) Aortic Cusp Exc 1.5 (1.5- 2.0cm) EF (%) 65.0 (55-70%) Rt. Atrium (1.9-4.0cm) Asc. Aorta cm IVSd 1.1 (0.7-1.1cm) RV (D) (1.8-2.4cm) PWd 1.0 (0.7-1.1cm) Mitral Valve Mitral Mitral Stenosis E/A ratio 0.0 2D MVA cm2 Aortic Valve Aortic Valve Aortic Stenosis LVOT Diameter 2.4 (1.8-2.4cm) Doppler LELAND cm2 Pulmonic Valve V2 0.97m/s Other Information Quality : Limited Rhythm : Technically limited study due to body habitus.patient position.pt sitting up Conclusion very limited study ith suboptimal image quality lvef 60% by visual estimate mild to moderate LVH valves not well assessed Condition at Discharge: Poor Final Diagnosis/Problems List Acute hypoxic respiratory failure likely due to multifocal pneumonia and COVID-19 Thrombocytopenia- Monitor, no bleeding COVID-19 pneumonia R/O Gram-positive/negative bacterial pneumonia- Stenotrophomonas maltophilia -currently on 3L of oxygen through nasal cannula Possible Cytokine Storm Syndrome 3-4 Mediastinal lymph nodes and bilateral lung cysts -follow-up with pulmonology as outpatient Primary hypertension -Monitor BP closely Dyslipidemia -Atorvastatin 40mg daily Hx of Gout -Continue Allopurinol 300mg daily -Pulm HTN Hypothyroidism -Order TSH and FT4 -Resume Home levothyroxine 100mcg +125mcg = 225mcg daily Discharge Disposition: [facility] Discharge Statement: "Patient was advised to return to the ER or call 911 if any headaches, dizziness, shortness of breath, chest pain, abdominal pain, bleeding, fevers, or worsening of medical condition. Patient was counseled about treatment plan, medications, possible side effects, patientverbalized understanding. All questions were answered to the best of my ability. This discharge took greater then 30 minutes in planning, reviewing documentation, counseling the patient, and discussing with other team members." ASSESSMENT ASSESSMENT Assessment Date of Service: Jul 28, 2024 Billing Provider: NICOLAS DOWNING MD Common Visit Codes: 85454-LWZ/OBS DISCH DAY >30min NICOLAS DOWNING MD Jul 28, 2024 10:59
[2024-07-28] MEDS ORDERED: IPRATROPIUM BROM 0.5 MG/2.5ML INH SOL ONE (17:52)
[2024-07-28] MEDS ORDERED: ALBUTEROL SULF 2.5 MG/0.5ML(0.5%) NEB SOLN ONE (17:53)
== END 2024-07-28 17:00 | DRG 177 ==
LOC: EDBD 17:48 → EDUNIT# 17:48 → ER 17:54 → OVERFLOW 21:27 → CENTRAL 23:14 → TELE-CENTR 07-15 06:11
PROVIDERS: ADMIT Internal Medicine; ATTEND Internal Medicine
PROC: XW033E5 Introduction of Remdesivir Anti-infective into Peripheral Vein, Percutaneous Approach, New Technology Group 5 (ICD-10-PCS; principal; 2024-07-17)
DX: U07.1 COVID-19 (principal); I50.33 Acute on chronic diastolic (congestive) heart failure; J12.82 Pneumonia due to coronavirus disease 2019; J15.9 Unspecified bacterial pneumonia; J96.21 Acute and chronic respiratory failure with hypoxia; J96.22 Acute and chronic respiratory failure with hypercapnia; Z68.43 Body mass index [BMI] 50.0-59.9, adult; D89.834 Cytokine release syndrome, grade 4; I27.20 Pulmonary hypertension, unspecified; J15.69 Pneumonia due to other Gram-negative bacteria; E78.5 Hyperlipidemia, unspecified; R73.9 Hyperglycemia, unspecified; Z79.899 Other long term (current) drug therapy; E03.9 Hypothyroidism, unspecified; I11.0 Hypertensive heart disease with heart failure; D69.6 Thrombocytopenia, unspecified; E66.01 Morbid (severe) obesity due to excess calories; M10.9 Gout, unspecified; Z99.81 Dependence on supplemental oxygen; Z85.828 Personal history of other malignant neoplasm of skin; Z87.891 Personal history of nicotine dependence; Z82.49 Family history of ischemic heart disease and other diseases of the circulatory system; Z79.82 Long term (current) use of aspirin
CPT/HCPCS: 36415; 36600; 71045; 71046; 71250; 80048; 80053; 80061; 80202; 81001; 82565; 82805; 83036; 83516; 83605; 83735; 83880; 84132; 84439; 84443; 84484; 85007; 85025; 85027; 85379; 85610; 85730; 86225; 86235; 86431; 87070; 87077; 87081; 87186; 87205; 87426; 87804; 93005; 93306; 93970; 93971; 94640; 94644; 97110; 97116; 97163; 97530; G0378; J1100; J1815; J2185; J2543; J3465; J7060

== ENCOUNTER → 2024-09-03 | Outpatient (CLI) | payer MEDICARE, BC ==
[~2024-09-03] MED LIST: ALBUTEROL SULF 2.5 MG/0.5ML(0.5%) NEB SOLN ONE; ALLO300T2 PO; ASPI1TAB20 PO; AZIL40TA2 PO; FURO40TA4 PO; LEVO100T3 PO; LEVO125T PO; SIMV20TA20 PO
[2024-09-03 10:10] LABS: Base Excess 5.2 mmol/L (-2.0-3.0)
--- NOTE | 2024-09-16 19:58 | DVHNC2 ---
Procedure - 6 minute walk test interpretation: August 26, 2024 Expected heart rate achieved Completed 6 minutes of ambulation. Significant hypoxic events occurred. O2 saturation decreased to 84%. Severe reduction in distance walk. DANIELE FELCIIANO RESIDENT Sep 16, 2024 19:58
--- NOTE | 2024-09-16 19:59 | DVHNC2 ---
Procedure - August 26, 2024: ABG interpretation: Compensated. PaCO2 45.5 mmHg. PaO2 62.5 mmHg. DANIELE FELICIANO RESIDENT Sep 16, 2024 19:59
--- NOTE | 2024-09-16 20:01 | DVHNC2 ---
Procedure - September 03, 2024: Pulmonary function test interpretation: Moderately severe obstructive ventilatory defect. No significant bronchodilator response. FVC improved by 50 mL. FEV1 improved by 70 mL. Total lung capacity is below normal limits, 72% of predicted (5.19 L). Mild reduction in diffusion capacity, not corrected for patient's hemoglobin (64% of predicted). DANIELE FELICIANO RESIDENT Sep 16, 2024 20:01
== END | disposition home or self-care (01) ==
LOC: RT 08-31 11:46
PROVIDERS: ATTEND Internal Medicine Pulmonary Disease
DX: J84.9 Interstitial pulmonary disease, unspecified (principal); R06.09 Other forms of dyspnea; Z87.891 Personal history of nicotine dependence
CPT/HCPCS: 36600; 82805; 94060; 94618; 94727; 94729